=== PATIENT | female | born 2000 | race Caucasian/White ===

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

== ENCOUNTER 2020-04-26 16:23 | Outpatient (REF) | payer MEDICAID, SELFPAY ==
[2020-04-28 08:57] LABS: Chlamydia Result Negative (Negative); GC Result Negative (Negative)
== END 2020-04-26 16:43 ==
LOC: LBN 16:23
PROVIDERS: PCP Pediatrics; Visit Provider Nurse Practitioner Women's Health
DX: Z11.3 Encounter for screening for infections with a predominantly sexual mode of transmission (principal)
CPT/HCPCS: 87491; 87591

== ENCOUNTER 2021-11-28 14:38 | Outpatient (CLI) | payer MEDICAID, SELFPAY ==
--- NOTE | 2021-11-28 14:00 | DI.RAD_ITS ---
Exam(s) XR WRIST LT LIMITED EXAM: XR WRIST LT LIMITED CLINICAL HISTORY: confirmation of cyst. TECHNIQUE: 2D digital imaging was performed. COMPARISON: No exams were available for comparison FINDINGS: BONES: No acute fracture is present. No bony destructive lesion is seen. JOINTS: The carpal bones are normally aligned. SOFT TISSUE: Normal. IMPRESSION: Unremarkable radiographs of the left wrist. DATA REPOSITORY: RADIATION DOSE DELIVERED:
== END 2021-11-28 14:39 | disposition home or self-care (01) ==
LOC: DIORS 14:38
PROVIDERS: PCP Pediatrics; Referring Provider Pediatrics; Visit Provider Physician Assistant Surgical
DX: M67.432 Ganglion, left wrist (principal)
CPT/HCPCS: 73100

== ENCOUNTER 2021-12-19 03:01 | Outpatient (CLI) | payer MEDICAID, SELFPAY ==
[2021-12-19 10:09] LABS: Source Nasal/Nares
[2021-12-19 12:26] LABS: COVID-19 PCR Negative (Negative)
== END 2021-12-19 03:02 | disposition home or self-care (01) ==
PROVIDERS: PCP Pediatrics; Visit Provider Student in an Organized Health Care Education/Training Program
DX: Z20.822 Contact with and (suspected) exposure to COVID-19 (principal)
CPT/HCPCS: 87635

== ENCOUNTER 2021-12-20 09:25 | Day surgery (SDC) | payer MEDICAID, SELFPAY ==
--- NOTE | 2021-12-20 07:25 | W.PM.DSUDISC ---
Discharge Plan Disposition Patient Disposition: HOME Condition: Good Discharge Details Reason For Visit: Left wrist ganglion cyst Attending Provider: Lalit Ceron Primary Care Provider: Silvano Yang Home Meds and New Rx's Prescriptions: New acetaminophen 500 mg tablet 500 mg PO Q6H PRN (Reason: pain) Qty: 60 RF: 2 ibuprofen 600 mg tablet 600 mg PO TID PRN (Reason: pain) Qty: 60 RF: 0 hydrocodone-acetaminophen 5-325 mg tablet 1 tab PO Q6H PRN (Reason: severe pain) Qty: 4 RF: 0 Continued loratadine [Claritin] 10 mg tablet 10 mg PO DAILY PRN (Reason: allergy symptoms) Qty: 45 RF: 2 levonorgestrel-ethinyl estrad [Altavera (28)] 0.15-0.03 mg tablet 1 tab PO DAILY Qty: 84 RF: 4 buspirone 5 mg tablet 5 mg PO DAILY RF: 0 mometasone 50 mcg/actuation [place],Non-Aerosol 1 spray INTRANASAL DAILY RF: 0 Discharge Instructions Additional Instructions: Ganglion Cyst Excision Discharge Instructions Activity: You may use your fingers for light activity. You should limit any excessive motion or forceful gripping until the sutures have been removed. Dressings: You should keep the initial surgical dressing in place for at least 3 days. You may remove your dressings and get the wound wet after 3 days. You should keep the dressings and the wound clean at all times. You may keep the initial dressing in place until your follow-up but keep the wound covered with light gauze until the sutures are removed. Medications: - You should take Tylenol and Ibuprofen around the clock as prescribed or per check clerk's recommendations. - You have Hydrocodone prescribed for breakthrough pain control. Take only as needed and limit use as much as possible. This may cause constipation. Follow-up: 7-10 days for wound check and suture removal. Referrals: Lalit Ceron MD [ [facility] STAFF PHYSICIAN] - Activity:: Elevate Remove Dressings/Wound Care:: 72 hours Shower/Bathe:: 72 hours Discharge Orders Discharge Orders: Discharge Order (Routine); Ordered 12/20/21 Ordered By: Yana West DS: Diagnosis Discharge Diagnosis (1) Ganglion cyst of volar aspect of left wrist: Status: Acute
[2021-12-20 09:30] VITALS: BP 135/108; PULSE 105; RESP 24; TEMP 36; O2SAT 98
--- NOTE | 2021-12-20 10:10 | W.ANESPRE ---
General Info Date of Service Date Performed: 12/20/21 Height: 5 ft 5 in Weight: 53.2 kg Body Mass Index (BMI): 19.5 Surgical Procedure: Operation Date: 12/20/21 10:40 Proposed Procedures Side Surgeon p Wrist Cyst Excision Left Lalit Ceron MD Meds Allergies and Home Medications Allergies Allergy/AdvReac Type Severity Reaction Status Date / Time No Known Allergies Allergy Unverified 12/20/21 09:48 Home Medication Medication Instructions Recorded loratadine 10 mg tablet 10 mg PO DAILY PRN #45 tab 12/25/19 levonorgestrel 0.15 mg-ethinyl 1 tab PO DAILY #84 tab 04/26/20 estradiol 0.03 mg tablet buspirone 5 mg tablet 5 mg PO DAILY tab 05/31/21 mometasone 1 spray INTRANASAL DAILY 12/19/21 Current Visit Medications: Current Medications Generic Name Dose Route Start Last Admin Trade Name Freq PRN Reason Stop Dose Admin Acetaminophen 650 mg 12/20/21 07:24 Acetaminophen 325 Mg Tab PO Q4H PRN PRN Hydrocodone Bitart/Acetaminophen 0 tab 12/20/21 07:24 Hydrocodone 5/Acetaminophen 325 Tab PO Q3H PRN PRN Pain Ringer's Solution 1,000 mls @ 80 mls/hr 12/20/21 06:00 IV 01/18/22 23:59 INFUSION SUNSHINE Cefazolin Sodium/Dextrose 2 gm in 50 mls @ 100 mls/hr 12/20/21 06:00 Ancef Duplex IVPB 01/18/22 23:59 PREOP SUNSHINE IV Miscellaneous Supplies 1 each 12/20/21 06:00 Iv Access IV 01/18/22 23:59 DIRECTED SUNSHINE Sodium Chloride 0 ml 12/20/21 06:00 Normal Saline Flush 10 Ml Syr IV 01/18/22 23:59 PRN PRN Sodium Chloride 0 ml 12/20/21 06:00 Normal Saline 10 Ml Vial IJ 01/18/22 23:59 DIRECTED PRN Sterile Water 0 ml 12/20/21 06:00 Water,Injection,Sterile 10 Ml Vial IJ 01/18/22 23:59 DIRECTED PRN PFSH Active Problems Active Problems: Problem Status Onset Code Anxiety 03/15/17 F41.9 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 Oral contraception initial prescription Z30.011 Interstitial cystitis N30.10 Ganglion cyst of volar aspect of left wrist M67.432 Medical History Medical History Anxiety Depression Eczema Surgical History Surgical History (Updated 12/20/21 @ 09:48 by Vanessa Hsieh RN) Hx of wisdom tooth extraction Tobacco Smoking/Tobacco Use Status: Never Alcohol Alcohol Intake: current Alcohol intake frequency: holidays/special occasions only Alcohol type: beer and wine Substance Use Substance use: Daily Substance use type: marijuana Details: last used 12.18.21 Prental History History 0 Para Hx # Term Pregnancies Multiple births Hx # Pregnancies Ectopic pregnancies AB induced Hx Number of Living Children AB spontaneous Vital Signs and Lab Results Vital Signs Most Recent Vital Signs in EMR: Most Recent Vital Signs Temp Pulse Resp BP Pulse Ox 36.0 C L 127 H 24 135/108 H 98 12/20/21 09:30 12/20/21 09:30 12/20/21 09:30 12/20/21 09:30 12/20/21 09:30 Lab Results Blood Type / Crossmatch: No Data to Display Complete Blood Count: No Data to Display Complete Metabolic Panel: No Data to Display Liver Function Panel: No Data to Display Coagulation Panel: No Data to Display Cardiac Panel: No Data to Display Arterial Blood Gas: No Data to Display Venous Blood Gas: No Data to Display Pancreas Panel: No Data to Display Thyroid Panel: No Data to Display Infectious Disease: Coronavirus (COVID-19)(PCR) Negative (Negative) 12/19/21 09:14 12/19/21 Coronavirus 2019 Source Nasal/Nares 12/19/21 09:14 12/19/21 Blood Cultures: No Data to Display Toxicology Panel: No Data to Display Panel: No Data to Display Anesthesia Assessment and Plan Anesthesia History Personal History: No History of Anesthesia Complications Family History: No Family History of Anesthesia Complications Exercise Tolerance Exercise Tolerance: Metabolic Equivalents>4 Pertinent Negatives Pertinent Negatives: No Symptoms of GERD, No Major Cardiovascular Symptoms or Complaints and No Major Pulmonary Symptoms or Complaints Cardiac & Pulmonary Exam Cardiac Exam: Normal S1/S2 Heart Sounds Pulmonary Exam: Clear Bilateral Breath Sounds Implantable Cardiac Device Does patient have a Pacemaker or an ICD?: No Airway Exam Known Difficult Airway: No Mallampati Class: 1 Mouth Opening: Normal (> 3cm) Thyromental Distance: Greater than 3 cm Neck Range of Motion: Full ROM Neck Circumference: Normal Teeth Condition: Normal Dentition ASA Classification ASA Score: ASA 2 Emergency Case?: No NPO Status NPO Status: NPO Clears >2 hours, Solids >8 hours Status Status: Negative HCG Anesthesia Plan Resuscitation Status: Full Code Anesthesia Technique: General Anesthesia Airway Planned: Natural Airway Monitors Used: Standard Monitors
[2021-12-20 10:11] VITALS: BMI 19.5
[2021-12-20] MEDS: Lactated Ringers 1,000 ML 80 ML IV (10:12)
[2021-12-20] MEDS: ceFAZolin 2 GM/50 ML BAG IVPB (10:21)
[2021-12-20] MEDS: Sodium Bicarbonate 50 MEQ/50 ML VIAL (10:55)
[2021-12-20 11:08] VITALS: BP 107/66; PULSE 68; RESP 18; TEMP 36.2; O2SAT 100
[2021-12-20 11:35] VITALS: BP 113/61; PULSE 71; RESP 20; TEMP 36.4; O2SAT 100
--- NOTE | 2021-12-20 12:06 | W.ANESPOSTOP ---
Postoperative Evaluation Date, Time and Location Date Performed: 12/20/21 Time Performed: 12:07 Patient Location: Day Surgery Unit Vital Signs Most Recent Imported Vital Signs: Most Recent Vital Signs Temp Pulse Resp BP Pulse Ox 36.4 C L 71 20 113/61 100 12/20/21 11:35 12/20/21 11:35 12/20/21 11:35 12/20/21 11:35 12/20/21 11:35 Pain Score Most Recent Pain Score: Most Recent Pain Score Pain Level 0 12/20/21 11:35 Assessment Mental Status: Awake (Alert & Oriented to Patient Baseline) Airway and Respiratory Function: Patent airway with normal (patient baseline) respiratory exam Cardiovascular Function: Hemodynamically Stable Hydration Status: Adequately Hydrated Nausea & Vomiting: No Nausea or Vomiting Pain: Pt. Denies Any Pain Peripheral Nerve Block: Patient did not receive a nerve block
--- NOTE | 2021-12-20 18:24 | W.PM.OP ---
Date of service: 12/20/21 Time of Service: 10:24 Operative Note Operative Note DATE OF PROCEDURE: 12/20/21 PRE-OP DIAGNOSIS: Left Volar Wrist Ganglion Cyst POST-OP DIAGNOSIS: same PROCEDURE: Excision of volar wrist ganglion cyst - Left wrist SURGEON: Lalit Ceron ANESTHESIA TYPE: General:No Airway Refer to Anesthesia Record ESTIMATED BLOOD LOSS: 5 PATHOLOGY: none sent TOURNIQUET TIME: 0 COMPLICATIONS: None Patient was transported to: PACU Patient's condition: stable Indications: Lynda is a 21 year old female who I have seen for a volar wrist ganglion cyst. It has continued to be bothersome despite nonoperative options and observation. Its size and interference with activities continues to cause problems. Therefore, I offered excision of the volar wrist cyst. I discussed the risks to include bleeding, infection, pain, stiffness, damage to nerve and vessels, recurrence. Despite these risks, she elects to proceed. Findings: There was a simple volar wrist ganglion cyst between the FCR tendon and the radial artery which was removed as well as its stalk and origin from the volar radioscaphoid joint. Procedure Description: Lynda was greeted in the preoperative holding area. Identity was confirmed and the correct site was identified and marked. Consent was reviewed the patient and signed. History and physical was updated. The patient to take not to the operating room placed in supine position. All bony prominences were well-padded. A nonsterile tourniquet was placed high up onto the left arm. The arms and prepped with ChloraPrep and draped in a standard fashion. The surgical site was marked on the skin and injected with 1% lidocaine with epinephrine buffered with sodium bicarbonate. No tourniquet was used. The skin was incised sharply. Deeper dissection was carried out with tenotomy scissors and careful attention to vascular branches in this area using bipolar electrocautery for branches overlying the cyst. The mass was identified and protected with dissection carried around. Once was fully identified it was deflated and the cyst stalk was followed down to the carpus with a slim origin to the radioscaphoid joint. The cyst structure was resected and its origin from the carpus was opened with tenotomy scissors and rongeur. The wound was then thoroughly irrigated. There is no major arterial bleeding and any other ooze was cauterized with the bipolar electrocautery. The wound was dry. The deep layer was reapproximated with a 3-0 Vicryl. The skin was closed with a running 4-0 Monocryl followed by skin glue, gauze, and Wade wrap. The wrist was placed into a removable wrist brace. At the end the case all counts were correct. The patient was awakened from anesthesia and taken to the PACU in stable condition. There were no noted complications.
== END 2021-12-20 12:10 | disposition home or self-care (01) ==
LOC: SUR 09:25
PROVIDERS: PCP Pediatrics; Visit Provider Student in an Organized Health Care Education/Training Program
PROC: (CPT 25111; principal; 2021-12-20 10:30)
DX: M67.432 Ganglion, left wrist (principal)
CPT/HCPCS: 25111; 81025; J0690; J1100; J2001; J2250; J2405; J2704; J3010

== ENCOUNTER 2022-03-21 12:34 | Outpatient (REF) | payer MEDICAID, SELFPAY ==
--- NOTE | 2022-03-21 10:30 | PAPFT_PTH ---
PATIENT: Lynda Kraus LOC: [facility]#:[id number] AGE/SX: 21/F ROOM: RE03/21/[address]: Salud Braga : 2000 BED: DIS: 03/21/2022 SPEC #: [id number] RECD: 03/21/22 17:21 STATUS: NAY RETim #: [id number] DAMASO: 03/21/22 10:[address]: Salud Braga DEPT: [facility] Cytology RECD BY: Meghan Simental ENTERED: 03/21/22 17:22 SP TYPE: PAPFT OTHR DR: Silvano Carranza, Tissues: 1 - CX/ENDOCX FOR PAP SMEARS Procedures: PAP THIN PREP/UVM Screening Comments: [id number] (CHLAMYDIA/GC)
[2022-03-21 14:31] LABS: ALT 17 U/L (14-59); AST 13 U/L (15-37); Albumin 3.9 g/dL (3.4-5.0); Alkaline Phosphatase 57 U/L (46-116); Anion Gap 9.3 mmol/L (3-11); BUN 16 mg/dL (7-18); Bilirubin, Total 0.6 mg/dL (0.2-1.0); CO2 27.7 mmol/L (21.0-32.0); Calcium 8.6 mg/dL (8.5-10.1); Chloride 105 mmol/L (98-107); Glucose 66 mg/dL (74-106); Sodium 142 mmol/L (136-145); Total Protein 7.2 g/dL (6.4-8.2)
[2022-03-22 14:42] LABS: Chlamydia Result Negative (Negative); GC Result Negative (Negative)
== END 2022-03-21 12:35 | disposition home or self-care (01) ==
LOC: NCHCN 12:34
PROVIDERS: PCP Pediatrics; Visit Provider Nurse Practitioner Family
DX: R63.4 Abnormal weight loss (principal); Z12.4 Encounter for screening for malignant neoplasm of cervix; Z01.419 Encounter for gynecological examination (general) (routine) without abnormal findings; Z00.00 Encounter for general adult medical examination without abnormal findings; Z11.3 Encounter for screening for infections with a predominantly sexual mode of transmission
CPT/HCPCS: 80053; 87491; 87591; 88142

== ENCOUNTER 2022-06-04 16:24 | Emergency (ER) | payer MEDICAID, SELFPAY ==
[2022-06-04 16:29] VITALS: BP 156/95; PULSE 105; RESP 14; TEMP 37.2; O2SAT 100
--- NOTE | 2022-06-04 16:30 | RT.EKG_ITS ---
APPROVED REPORT Exam: Resting ECG Reason for Exam: elevated heart rate Patient Location: E HR:105 bpm ECG Measurements Heart Rate [address] 125 P 78 QRSd 92 QRS 79 QT 339 T -6 QTc 447 Conclusion Sinus tachycardia...rate> 99 Multiple ventricular premature complexes...V complexes w/ short R-R intervls sinus tachycardia, normal axis, normal intervals,PVCs, T wave flattening III aVF
[2022-06-04] MEDS: LORazepam 1 MG TAB PO (17:24)
[2022-06-04 17:41] LABS: Bilirubin Negative (Negative); Blood Negative (Negative); Clarity Clear (Clear); Glucose Negative (Negative); Ketones Negative (Negative); Leukocyte Esterase Negative (Negative); Nitrite Negative (Negative); Specific Gravity 1.015 (1.005-1.025); Urobilinogen 0.2 EU/dL (Up TO 0.2)
[2022-06-04 17:52] LABS: Abs Immature Grans 0.02 10^3/uL (0.0-0.06); Absolute Basophil Count 0.05 10^3/uL (0.0-0.2); Absolute Eosinophil Count 0.06 10^3/uL (0.0-0.7); Absolute Lymphocyte Count 1.87 10^3/uL (1.2-3.4); Absolute Monocyte Count 0.82 10^3/uL (0.1-0.8); Absolute Neutrophil Count 7.12 10^3/uL (1.2-6.7); Basophils % 0.5; Eosinophils % 0.6; HCT 40.7 % (36.0-46.0); HGB 14.2 g/dL (11.2-15.7); Immature Grans % 0.2; Lymphocytes % 18.8; MCH 31.6 pg (27.0-33.0); MCHC 34.9 % (32.0-36.0); MCV 90 fL (80-95); MPV 9.8 fL (8.0-11.0); Monocytes % 8.2; Neutrophils % 71.7; Platelet Count 286 10^3/uL (130-400); RDW 13.2 % (11.7-14.6); RDW-SD 43.9 fL; WBC 9.94 10^3/uL (4.4-10.8)
[2022-06-04 18:13] VITALS: RESP 14
[2022-06-04 18:13] LABS: ALT 17 U/L (14-59); AST 11 U/L (15-37); Albumin 3.6 g/dL (3.4-5.0); Alkaline Phosphatase 51 U/L (46-116); Anion Gap 5.8 mmol/L (3-11); BUN 15 mg/dL (7-18); Bilirubin, Total 0.3 mg/dL (0.2-1.0); CO2 28.2 mmol/L (21.0-32.0); Chloride 105 mmol/L (98-107); Glucose 116 mg/dL (74-106); Potassium 3.8 mmol/L (3.5-5.1); Sodium 139 mmol/L (136-145); TSH (W/Ref FT4) 1.22 uIU/mL (0.36-3.74); Total Protein 7.1 g/dL (6.4-8.2)
--- NOTE | 2022-06-04 18:19 | W.ED.GENAD ---
Discharge Plan Disposition Patient Disposition: HOME Condition: Stable Discharge Details Clinical Impression: Anxiety, Palpitations Primary Care Provider: Salud Braga ED Provider: Meghan Almonte Home Meds and New Rx's Prescriptions: New hydroxyzine HCl 50 mg tablet 50 mg PO QHS Qty: 14 0RF lorazepam [Ativan] 1 mg tablet 1 mg PO DAILY PRNQty: 7 0RF Continued loratadine [Claritin] 10 mg tablet 10 mg PO DAILY PRN (Reason: allergy symptoms) Qty: 45 2RF levonorgestrel-ethinyl estrad [Altavera (28)] 0.15-0.03 mg tablet 1 tab PO DAILY Qty: 84 4RF buspirone 5 mg tablet 5 mg PO DAILY mometasone 50 mcg/actuation [place],Non-Aerosol 1 spray INTRANASAL DAILY acetaminophen 500 mg tablet 500 mg PO Q6H PRN (Reason: pain) Qty: 60 2RF ibuprofen 600 mg tablet 600 mg PO TID PRN (Reason: pain) Qty: 60 0RF Discharge Instructions Instructions: Heart Palpitations (ED), Anxiety (ED) Additional Instructions: Take hydroxyzine at night, you may take 25 to 50 mg as needed to help you sleep [facility] Follow-up with your primary care physician You may take Ativan as needed, this medication to use for anxiety but it is addictive and you should not drive for 8 hours after taking this medication You should also not combine this medication with any alcohol Please return earlier should you have new or worsening complaints Referrals: [facility] [Provider Group] - 2 days Salud Braga [Primary Care Provider] - 1 day Medical Decision Making Diagnostic labs do not show evidence of acute abnormality Vital stable EKG does not show evidence of abnormality Fully alert and oriented Denies suicidal or homicidal ideation Given referral to [facility] [place], spoke with Becca and given resources Given Ativan which patient states markedly improved her anxiety Given prescription for small amount of Ativan with risk of addiction discussed Given prescription for hydroxyzine as needed for sleep Return precautions discussed and patient expressed understanding Medical Records Medical records reviewed: Yes I reviewed the patient's medical records. Lab Data Lab results reviewed: Yes I reviewed the patient's lab results. HPI General Date/Time Provider Initiated Documentation: 06/04/22 16:56. HPI Narrative: This 21-year-old female presents with reports of palpitations and anxiety with insomnia. She states that insomnia for several years now on for the past 3 days. She feels as though she is getting palpitations and feels like her heart is racing. She denies any chest pain or shortness of breath. She is on BuSpar for anxiety but does not feel it is working any longer. She is been trying to find a counselor but has been having difficulty. She denies any suicidal or homicidal ideation. She denies any illicit drug use. She does occasionally drink alcohol but denies regular use. She denies any additional illicit drug use. Related Data Home Medications Medication Instructions Recorded Confirmed loratadine 10 mg tablet (Claritin) 10 mg PO DAILY PRN allergy 12/25/19 06/04/22 symptoms #45 tabs levonorgestrel 0.15 mg-ethinyl 1 tab PO DAILY #84 tabs 04/26/20 06/04/22 estradiol 0.03 mg tablet (Altavera (28)) buspirone 5 mg tablet 5 mg PO DAILY 05/31/21 06/04/22 mometasone 50 mcg/actuation nasal 1 spray intranasal DAILY 12/19/21 06/04/22 spray acetaminophen 500 mg tablet 500 mg PO Q6H PRN pain #60 tabs 12/20/21 06/04/22 ibuprofen 600 mg tablet 600 mg PO TID PRN pain #60 tabs 12/20/21 06/04/22 hydroxyzine HCl 50 mg tablet 50 mg PO QHS #14 tabs 06/04/22 lorazepam 1 mg tablet (Ativan) 1 mg PO DAILY PRN #7 tabs 06/04/22 Previous Rx's Medication Instructions Recorded loratadine 10 mg tablet (Claritin) 10 mg PO DAILY PRN allergy 12/25/19 symptoms #45 tabs levonorgestrel 0.15 mg-ethinyl 1 tab PO DAILY #84 tabs 04/26/20 estradiol 0.03 mg tablet (Altavera (28)) acetaminophen 500 mg tablet 500 mg PO Q6H PRN pain #60 tabs 12/20/21 ibuprofen 600 mg tablet 600 mg PO TID PRN pain #60 tabs 12/20/21 hydroxyzine HCl 50 mg tablet 50 mg PO QHS #14 tabs 06/04/22 lorazepam 1 mg tablet (Ativan) 1 mg PO DAILY PRN #7 tabs 06/04/22 Allergies Allergy/AdvReac Type Severity Reaction Status Date / Time No Known Allergies Allergy Unverified 06/04/22 16:36 General Stated Complaint: Anxiety SHRADDHA: 3 Review of Systems All systems reviewed & are unremarkable except as noted in HPI and below PFSH All Active Problems (Updated 12/31/21 @ 09:36 by Lalit Ceron MD) Palpitations (Acute) Anxiety (Acute 03/15/17) Patellar instability of right knee (Chronic) Oral contraception initial prescription (Acute) Interstitial cystitis (Acute) Ganglion cyst of volar aspect of left wrist (Acute) s/p cyst excision 12/20/21 Medical History Anxiety Depression Eczema Surgical History Hx of wisdom tooth extraction Family History Mother Hyperlipidemia Mental disorder depression/anxiety OCD on disability PMS (premenstrual syndrome) ADHD (attention deficit hyperactivity disorder) Asthma Father Substance abuse Other Substance abuse Essential hypertension Heart disease Hyperlipidemia Mental disorder depression/anxiety Grandparent Substance abuse Essential hypertension Hyperlipidemia Mental disorder depression/anxiety Social History Smoking/Tobacco Use Status: Never Smoking risk assessment performed?: Yes Alcohol Intake: current Alcohol Intake frequency: holidays/special occasions only Alcohol type: beer and wine Drug use: Daily Substance use type: marijuana Details: uses it to help her sleep has not used for a few days Sexually active: Yes Do you think of yourself as: straight/heterosexual Current gender identity: female Do you feel safe at home: Yes Do you feel safe in your relationship?: Yes Female Reproductive History Menstrual Age of Menarche: 11 Duration of menses: 6-7 days control method: none and condoms History History 0 Para Hx # Term Pregnancies Multiple births Hx # Pregnancies Ectopic pregnancies AB induced Hx Number of Living Children AB spontaneous Exam Const General: cooperative, comfortable and no acute distress Eyes Pupils: PERRL Resp Effort & Inspection: normal respiratory effort Cardio Rate: regular rate Rhythm: regular rhythm Heart Sounds: no murmurs GI Inspection: normal to inspection Skin General skin exam: no rashes or lesions noted Neuro General: patient alert and patient oriented x3 Extrem General: normal to inspection Course Vital Signs Vital signs: Vital Signs Temperature 37.2 C 06/04/22 16:29 Pulse 105 H 06/04/22 16:29 Respiratory Rate 14 06/04/22 16:29 Blood Pressure 156/95 H 06/04/22 16:29 Pulse Oximetry 100 06/04/22 16:29 Temperature 37.2 C 06/04/22 16:29 Temperature Source Skin 06/04/22 16:29 Pulse 105 H 06/04/22 16:29 Respiratory Rate 14 06/04/22 18:13 Respiratory Effort 06/04/22 18:13 Respiratory Depth Normal 06/04/22 18:13 Respiratory Pattern Normal 06/04/22 18:13 Blood Pressure 156/95 H 06/04/22 16:29 Blood Pressure Position Sitting 06/04/22 16:29 Pulse Oximetry 100 06/04/22 16:29 Oxygen Delivery Method Room Air 06/04/22 16:29 Oxygen Flow Rate 0 06/04/22 16:29 Pain Level 0 06/04/22 16:29 Lab/Test Results Lab/Test Results: Laboratory Tests Range/Units 06/04/22 06/04/22 06/04/22 17:15 17:45 17:45 WBC (4.4-10.8) 10^3/uL 9.94 RBC (3.93-5.22) 10^6/uL 4.50 Hgb (11.2-15.7) g/dL 14.2 Hct (36.0-46.0) % 40.7 MCV (80-95) fL 90 MCH (27.0-33.0) pg 31.6 MCHC (32.0-36.0) % 34.9 RDW (11.7-14.6) % 13.2 Plt Count (130-400) 10^3/uL 286 MPV (8.0-11.0) fL 9.8 Immature Gran % 0.2 Neutrophils % 71.7 Lymphocytes % 18.8 Monocytes % 8.2 Eosinophils % 0.6 Basophils % 0.5 Nucleated RBC % (0.0-0.3) % 0.0 Absolute Neutrophils (1.2-6.7) 10^3/uL 7.12 H Absolute Lymphocytes (1.2-3.4) 10^3/uL 1.87 Absolute Monocytes (0.1-0.8) 10^3/uL 0.82 H Absolute Eosinophils (0.0-0.7) 10^3/uL 0.06 Absolute Basophils (0.0-0.2) 10^3/uL 0.05 Sodium (136-145) mmol/L 139 Potassium (3.5-5.1) mmol/L 3.8 Chloride (98-107) mmol/L 105 Carbon Dioxide (21.0-32.0) mmol/L 28.2 Anion Gap (3-11) mmol/L 5.8 BUN (7-18) mg/dL 15 Creatinine (0.55-1.02) mg/dL 1.0 Estimated GFR/1.73 m2 (mL/min/1.73m2) >= 60.00 Glucose (74-106) mg/dL 116 H Calcium (8.5-10.1) mg/dL 9.0 Total Bilirubin (0.2-1.0) mg/dL 0.3 AST (15-37) U/L 11 L ALT (14-59) U/L 17 Alkaline Phosphatase (46-116) U/L 51 Total Protein (6.4-8.2) g/dL 7.1 Albumin (3.4-5.0) g/dL 3.6 TSH (0.36-3.74) uIU/mL 1.22 Urine Color (Yellow) Yellow Urine Clarity (Clear) Clear Urine pH (5-8) 7.0 Ur Specific [place] (1.005-1.025) 1.015 Urine Protein (Negative) mg/dL Negative Urine Ketones (Negative) mg/dL Negative Urine Blood (Negative) Negative Urine Nitrite (Negative) Negative Urine Bilirubin (Negative) Negative Urine Urobilinogen (Up TO 0.2) EU/dL 0.2 Ur Leukocyte Esterase (Negative) Negative Urine Glucose (Negative) mg/dL Negative POC- Test(urine) Negative
[2022-06-04] MEDS: hydrOXYzine HCL 25 MG TAB 50 MG PO (18:42)
== END 2022-06-04 22:32 | disposition home or self-care (01) ==
PROVIDERS: Emergency Provider Physician Assistant; PCP Nurse Practitioner Family
DX: F41.9 Anxiety disorder, unspecified (principal); R00.2 Palpitations; Z32.02 Encounter for pregnancy test, result negative
CPT/HCPCS: 36410; 36415; 80053; 81025; 93005; 99283; 81003; 84443; 85025; 93010; 99284

== ENCOUNTER 2022-12-14 19:49 | Outpatient (REF) | payer MEDICAID, SELFPAY ==
[2022-12-16 11:37] LABS: COVID-19 RT-PCR UVMMC Result Negative (Negative)
== END 2022-12-14 19:50 | disposition home or self-care (01) ==
LOC: LBN 19:49
PROVIDERS: PCP Nurse Practitioner Family; Visit Provider Physician Assistant Medical
DX: Z20.822 Contact with and (suspected) exposure to COVID-19 (principal); R05.9 Cough, unspecified
CPT/HCPCS: U0003

== ENCOUNTER 2023-01-04 19:31 | Outpatient (CLI) | payer MEDICAID, SELFPAY ==
--- NOTE | 2023-01-04 | DI.RAD_ITS ---
Exam(s) XR CHEST 2V PA LATERAL EXAM: XR CHEST 2V PA LATERAL CLINICAL HISTORY: cough TECHNIQUE: 2D digital imaging was performed. COMPARISON: No exams were available for comparison FINDINGS: HEART: Normal size. Aorta: Not dilated. PULMONARY VASCULATURE: Normal. LUNGS: Hyperinflated but clear. PLEURAL SPACE: No pleural effusion or pneumothorax. BONE:Unremarkable for age. IMPRESSION: Hyperinflated lungs. No acute abnormality. DATA REPOSITORY: RADIATION DOSE DELIVERED:
--- NOTE | 2023-01-04 20:21 | DI.VRAD_ITS ---
PROCEDURE INFORMATION: Exam: XR Chest Exam date and time: 01/04/2023 8:02 PM Age: 22 years old Clinical indication: Cough TECHNIQUE: Imaging protocol: Radiologic exam of the chest. Views: 2 views. COMPARISON: CT ABD PELVIS WITH CONTRAST 04/10/2017 1:42 AM FINDINGS: Lungs: The lungs are hyperaerated, possible reactive airway disease. No focal infiltrates. Pleural spaces: Unremarkable. No pleural effusion. No pneumothorax. Heart/Mediastinum: Unremarkable. No cardiomegaly. Bones/joints: Unremarkable. IMPRESSION: Hyperaeration possibly related to reactive airway disease. No evidence for consolidation. Dictated and Authenticated by: Bettie Reyes MD. Ordering:MEDARDO Carr MD
== END 2023-01-04 19:51 ==
PROVIDERS: PCP Nurse Practitioner Family; Visit Provider Physician Assistant Medical
DX: R91.8 Other nonspecific abnormal finding of lung field (principal)
CPT/HCPCS: 71046

== ENCOUNTER 2023-07-02 19:28 | Emergency (ER) | payer MEDICAID, SELFPAY ==
[2023-07-02 19:34] VITALS: BP 134/100; PULSE 99; RESP 22; TEMP 37.1; O2SAT 97
--- NOTE | 2023-07-02 19:45 | DI.RAD_ITS ---
Exam(s) XR CHEST 2V PA LATERAL EXAM: XR CHEST 2V PA LATERAL CLINICAL HISTORY: cough. TECHNIQUE: 2D digital imaging was performed. COMPARISON: Prior chest x-ray 01/04/2023 FINDINGS: 2 views: Heart size is normal. The mediastinum is not widened. Bilateral hyperinflation again noted. No confluent infiltrates but there is subsegmental atelectasis in the lateral right lung base. No pleural effusions. IMPRESSION: Hyperinflation. Subsegmental platelike atelectasis in the lateral right lung base. DATA REPOSITORY: RADIATION DOSE DELIVERED:
[2023-07-02 19:59] VITALS: RESP 16; RESP 4
[2023-07-02] MEDS: Albuterol 2.5 MG/3 ML INH SOLN VIAL UPD (19:59)
--- NOTE | 2023-07-02 20:48 | DI.VRAD_ITS ---
PROCEDURE INFORMATION: Exam: XR Chest Exam date and time: 07/02/2023 8:19 PM Age: 22 years old Clinical indication: Cough TECHNIQUE: Imaging protocol: Radiologic exam of the chest. Views: 2 views. COMPARISON: CR XR CHEST 2V PA LATERAL 01/04/2023 8:02 PM FINDINGS: Lungs: Hyperaeration of the lungs. No focal consolidation. Pleural spaces: Unremarkable. No pleural effusion. No pneumothorax. Heart/Mediastinum: Unremarkable. No cardiomegaly. Bones/joints: Unremarkable. IMPRESSION: Hyperaeration of the lungs. No focal consolidation. Dictated and Authenticated by: Dai Rojas MD. Ordering:SERGEY Partida MD
--- NOTE | 2023-07-02 21:16 | ED.GENADUL_ITS ---
Discharge Plan Disposition Patient Disposition: Home Discharge Details Clinical Impression: Pneumonia Primary Care Provider: Salud Braga ED Provider: Jaquan Aguilar Home Meds and New Rx's Prescriptions: New doxycycline hyclate 100 mg capsule 100 mg PO BID Qty: 10 0RF benzonatate 200 mg capsule 200 mg PO TID PRN (Reason: cough) Qty: 30 0RF Continued loratadine [Claritin] 10 mg tablet 10 mg PO DAILY PRN (Reason: allergy symptoms) Qty: 45 2RF levonorgestrel-ethinyl estrad [Altavera (28)] 0.15-0.03 mg tablet 1 tab PO DAILY Qty: 84 4RF buspirone 5 mg tablet 5 mg PO DAILY hydroxyzine HCl 50 mg tablet 50 mg PO QHS Qty: 14 0RF lorazepam [Ativan] 1 mg tablet 1 mg PO DAILY PRNQty: 7 0RF mometasone 50 mcg/actuation [place],Non-Aerosol 1 spray INTRANASAL DAILY acetaminophen 500 mg tablet 500 mg PO Q6H PRN (Reason: pain) Qty: 60 2RF ibuprofen 600 mg tablet 600 mg PO TID PRN (Reason: pain) Qty: 60 0RF Discharge Instructions Instructions: Pneumonia (ED) Additional Instructions: Stay well-hydrated and get plenty of rest. If you have any new or significant worsening of your symptoms feel free to return to the emergency department for reassessment otherwise follow-up with your primary care provider if not improving on the antibiotic. You may continue to use your home inhalers and it is recommended that you use this with a spacer. Referrals: Salud Braga [Primary Care Provider] - (As needed for reassessment or if not improving) Discharge Data Discharge Date/Time-TO BE ENTERED AT DEPARTURE: 07/02/23 21:22 Medical Decision Making Patient presenting to the emergency department for chief complaint of worsening cough. 7 days ago patient had started feeling ill and was diagnosed with COVID. She has been using conservative management but states worsening cough over the last couple days. Patient has a history of asthma, anxiety. She has been using her inhalers at home but still feeling some chest tightness. HEENT exam is unremarkable, patient does have some noted wheezing but very focal harsh wheezing in the right middle lobe. We will plan on checking chest x-ray because I am concerned for some pneumonia. Patient is otherwise stable with no hypoxia, no severe tachycardia, otherwise stable vital signs. Patient is outside the treatment window for antivirals and is otherwise healthy. Of note though patient is unvaccinated. Reviewed chest x-ray which shows no acute findings but given that patient has had viral illness for 7 days and now having worsening cough I am going to treat for pneumonia with doxycycline to cover possible bacterial source. Otherwise I feel patient can continue conservative management and return for new or worsening symptoms. After discussion of diagnosis and plan of care patient has no further needs, questions, or concerns and states clear understanding to return to the emergency department for any worsening symptoms. This documentation was generated using [employer] system, please disregard any oddities of phrase or misspellings. Imaging Data Radiologic Study: Imaging: X-Ray Radiologist's impression: Exam(s) PROCEDURE INFORMATION: Exam: XR Chest Exam date and time: 07/02/2023 8:19 PM Age: 22 years old Clinical indication: Cough TECHNIQUE: Imaging protocol: Radiologic exam of the chest. Views: 2 views. COMPARISON: CR XR CHEST 2V PA LATERAL 01/04/2023 8:02 PM FINDINGS: Lungs: Hyperaeration of the lungs. No focal consolidation. Pleural spaces: Unremarkable. No pleural effusion. No pneumothorax. Heart/Mediastinum: Unremarkable. No cardiomegaly. Bones/joints: Unremarkable. IMPRESSION: Hyperaeration of the lungs. No focal consolidation. HPI General Mode of arrival: ambulatory . Date/Time Provider Initiated Documentation: 07/02/23 19:42 . Limitations to Documentation: no limitations . Information obtained by: patient and RN notes reviewed . History of Present Illness 22 year old F presents to the emergency department with the chief complaint of Worsening chest congestion and cough, described as moderate, Patient started experiencing this day(s) (7) and it has been constant. No relieving factors improve symptom(s), No exacerbating factors reported . Related Data Home Medications Medication Instructions Recorded Confirmed loratadine 10 mg tablet (Claritin) 10 mg PO DAILY PRN allergy 12/25/19 07/02/23 symptoms #45 tabs levonorgestrel 0.15 mg-ethinyl 1 tab PO DAILY #84 tabs 04/26/20 07/02/23 estradiol 0.03 mg tablet (Altavera (28)) buspirone 5 mg tablet 5 mg PO DAILY 05/31/21 07/02/23 mometasone 50 mcg/actuation nasal 1 spray intranasal DAILY 12/19/21 07/02/23 spray acetaminophen 500 mg tablet 500 mg PO Q6H PRN pain #60 tabs 12/20/21 07/02/23 ibuprofen 600 mg tablet 600 mg PO TID PRN pain #60 tabs 12/20/21 07/02/23 hydroxyzine HCl 50 mg tablet 50 mg PO QHS #14 tabs 06/04/22 07/02/23 lorazepam 1 mg tablet (Ativan) 1 mg PO DAILY PRN #7 tabs 06/04/22 07/02/23 benzonatate 200 mg capsule 200 mg PO TID PRN cough #30 caps 07/02/23 doxycycline hyclate 100 mg capsule 100 mg PO BID #10 caps 07/02/23 Previous Rx's Medication Instructions Recorded loratadine 10 mg tablet (Claritin) 10 mg PO DAILY PRN allergy 12/25/19 symptoms #45 tabs levonorgestrel 0.15 mg-ethinyl 1 tab PO DAILY #84 tabs 04/26/20 estradiol 0.03 mg tablet (Altavera (28)) acetaminophen 500 mg tablet 500 mg PO Q6H PRN pain #60 tabs 12/20/21 ibuprofen 600 mg tablet 600 mg PO TID PRN pain #60 tabs 12/20/21 hydroxyzine HCl 50 mg tablet 50 mg PO QHS #14 tabs 06/04/22 lorazepam 1 mg tablet (Ativan) 1 mg PO DAILY PRN #7 tabs 06/04/22 benzonatate 200 mg capsule 200 mg PO TID PRN cough #30 caps 07/02/23 doxycycline hyclate 100 mg capsule 100 mg PO BID #10 caps 07/02/23 Allergies Allergy/AdvReac Type Severity Reaction Status Date / Time No Known Allergies Allergy Unverified 07/02/23 19:38 General Stated Complaint: GenMedical SHRADDHA: 4 Review of Systems Constitutional Constitutional: Reports chills, Reports fatigue, Denies fever(s), Reports headache(s), Reports lethargy and Reports malaise Eyes Eyes: Denies eye discharge ENT Ears, Nose, Mouth, and Throat: Reports headache(s), Denies neck pain and Denies throat swelling Cardiovascular Cardiovascular: Denies chest pain and Denies dyspnea Respiratory Respiratory: Reports as per HPI, Reports chest congestion, Reports cough, Reports excessive phlegm production and Denies dyspnea Musculoskeletal Musculoskeletal: Denies joint swelling and Denies neck pain Integumentary/Breasts Skin/Breast: Denies rash Neurologic Neurologic: Reports headache(s) Endocrine Endocrine: Reports fatigue Allergic/Immunologic Allergic/Immunologic: Denies throat swelling PFSH All Active Problems (Updated 12/31/21 @ 09:36 by Lalit Ceron MD) Pneumonia (Acute) Anxiety (Acute 03/15/17) Patellar instability of right knee (Chronic) Oral contraception initial prescription (Acute) Interstitial cystitis (Acute) Ganglion cyst of volar aspect of left wrist (Acute) s/p cyst excision 12/20/21 Medical History Anxiety Depression Eczema Surgical History Hx of wisdom tooth extraction Family History Mother Hyperlipidemia Mental disorder depression/anxiety OCD on disability PMS (premenstrual syndrome) ADHD (attention deficit hyperactivity disorder) Asthma Father Substance abuse Other Substance abuse Essential hypertension Heart disease Hyperlipidemia Mental disorder depression/anxiety Grandparent Substance abuse Essential hypertension Hyperlipidemia Mental disorder depression/anxiety Social History Smoking/Tobacco Use Status: Never Smoking risk assessment performed?: Yes Alcohol Intake: current Alcohol Intake frequency: holidays/special occasions only Alcohol type: beer and wine Drug use: Daily Substance use type: marijuana Details: uses it to help her sleep has not used for a few days Sexually active: Yes Do you think of yourself as: straight/heterosexual Current gender identity: female Do you feel safe at home: Yes Do you feel safe in your relationship?: Yes Female Reproductive History Menstrual Age of Menarche: 11 Duration of menses: 6-7 days control method: none and condoms History History 0 Para Hx # Term Pregnancies Multiple births Hx # Pregnancies Ectopic pregnancies AB induced Hx Number of Living Children AB spontaneous Exam Const General: cooperative, comfortable and no acute distress Orientation: alert and awake HENMT Head: normal to inspection, normocephalic and atraumatic Ears: hearing grossly normal bilaterally and TM's normal bilaterally General nose exam: external nose normal Face and sinus: no erythema Mouth: oral mucosae normal, no drooling, no muffled voice and no trismus Throat: posterior oropharynx normal Neck Neck: normal visual inspection, full ROM, no lymphadenopathy, no meningeal signs, trachea midline and supple Resp Effort & Inspection: normal respiratory effort, able to speak in complete sentences and cough Quality of cough: dry Auscultation: wheezes expiratory wheezes and scattered wheezes (Worsening right middle) Cardio Rate: regular rate Rhythm: regular rhythm Heart Sounds: S1 normal, S2 normal, normal S1 and S2, no click, no gallops, no murmurs and no rubs Skin General skin exam: no rashes or lesions noted and dry skin (warm) Neuro General: patient alert, patient awake, patient oriented x3, gait normal and moves all extremities Cognition: normal cognition Speech: speech normal Course Vital Signs Vital signs: Vital Signs Temperature 37.1 C 07/02/23 19:34 Pulse 99 H 07/02/23 19:34 Respiratory Rate 22 07/02/23 19:34 Blood Pressure 134/100 H 07/02/23 19:34 Pulse Oximetry 97 07/02/23 19:34 Temperature 37.1 C 07/02/23 19:34 Temperature Source Oral 07/02/23 19:34 Pulse 99 H 07/02/23 19:34 Respiratory Rate 16 07/02/23 19:59 Respiratory Effort Normal 07/02/23 19:55 Blood Pressure 134/100 H 07/02/23 19:34 Blood Pressure Position Sitting 07/02/23 19:34 Pulse Oximetry 97 07/02/23 19:34 Oxygen Delivery Method Room Air 07/02/23 19:59 Oxygen Flow Rate 0 07/02/23 19:59 Lab/Test Results Lab/Test Results: POC- Test(urine) Negative
[2023-07-02] MEDS: Benzonatate 100 MG CAP PO (21:18)
[2023-07-02] MEDS: Doxycycline Hyclate 100 MG CAP PO (21:18)
== END 2023-07-02 21:22 | disposition home or self-care (01) ==
PROVIDERS: Emergency Provider Nurse Practitioner Family; PCP Nurse Practitioner Family
DX: J18.9 Pneumonia, unspecified organism (principal); U09.9 Post COVID-19 condition, unspecified
CPT/HCPCS: 81025; 94640; 99284; 71046; J7613

== ENCOUNTER 2024-06-22 04:10 | Emergency (ER) | payer MEDICAID, SELFPAY ==
[2024-06-22 04:14] VITALS: BP 163/90; PULSE 99; RESP 18; O2SAT 95
[2024-06-22 04:17] VITALS: RESP 20
--- NOTE | 2024-06-22 04:26 | ED.GENADUL_ITS ---
Discharge Plan Disposition Patient Disposition[facility] Condition: Stable Discharge Details Clinical Impression: Alcohol intoxication Primary Care Provider: Salud Braga ED Provider: Franco Briceño and Leoncio Rx's Prescriptions: No Action loratadine [Claritin] 10 mg tablet 10 mg PO DAILY PRN (Reason: allergy symptoms) Qty: 45 2RF levonorgestrel-ethinyl estrad [Altavera (28)] 0.15-0.03 mg tablet 1 tab PO DAILY Qty: 84 4RF buspirone 5 mg tablet 5 mg PO DAILY hydroxyzine HCl 50 mg tablet 50 mg PO QHS Qty: 14 0RF lorazepam [Ativan] 1 mg tablet 1 mg PO DAILY PRNQty: 7 0RF mometasone 50 mcg/actuation [place],Non-Aerosol 1 spray INTRANASAL DAILY acetaminophen 500 mg tablet 500 mg PO Q6H PRN (Reason: pain) Qty: 60 2RF ibuprofen 600 mg tablet 600 mg PO TID PRN (Reason: pain) Qty: 60 0RF Discharge Instructions Instructions: Alcohol Intoxication ED Additional Instructions: You are released into [facility] protective custody until sober. Follow-up with PCP as needed. HPI General Mode of arrival: ambulatory . Date/Time Provider Initiated Documentation: 06/22/24 04:26 . Limitations to Documentation: no limitations . Information obtained by: patient . HPI Narrative: Patient brought in by [facility] for medical clearance to be housed in the corrections facility until she is sober. Patient has no complaint of. She has no significant past medical history. Related Data Home Medications ?Medication ?Instructions ?Recorded ?Confirmed loratadine 10 mg tablet (Claritin) 10 mg PO DAILY PRN allergy 12/25/19 06/22/24 symptoms #45 tabs levonorgestrel 0.15 mg-ethinyl 1 tab PO DAILY #84 tabs 04/26/20 06/22/24 estradiol 0.03 mg tablet (Altavera (28)) buspirone 5 mg tablet 5 mg PO DAILY 05/31/21 06/22/24 mometasone 50 mcg/actuation nasal 1 spray intranasal DAILY 12/19/21 06/22/24 spray acetaminophen 500 mg tablet 500 mg PO Q6H PRN pain #60 tabs 12/20/21 06/22/24 ibuprofen 600 mg tablet 600 mg PO TID PRN pain #60 tabs 12/20/21 06/22/24 hydroxyzine HCl 50 mg tablet 50 mg PO QHS #14 tabs 06/04/22 06/22/24 lorazepam 1 mg tablet (Ativan) 1 mg PO DAILY PRN #7 tabs 06/04/22 06/22/24 Previous Rx's ?Medication ?Instructions ?Recorded loratadine 10 mg tablet (Claritin) 10 mg PO DAILY PRN allergy 12/25/19 symptoms #45 tabs levonorgestrel 0.15 mg-ethinyl 1 tab PO DAILY #84 tabs 04/26/20 estradiol 0.03 mg tablet (Altavera (28)) acetaminophen 500 mg tablet 500 mg PO Q6H PRN pain #60 tabs 12/20/21 ibuprofen 600 mg tablet 600 mg PO TID PRN pain #60 tabs 12/20/21 hydroxyzine HCl 50 mg tablet 50 mg PO QHS #14 tabs 06/04/22 lorazepam 1 mg tablet (Ativan) 1 mg PO DAILY PRN #7 tabs 06/04/22 Allergies Allergy/AdvReac Type Severity Reaction Status Date / Time No Known Allergies Allergy Unverified 06/22/24 04:17 General Stated Complaint: GenMedical SHRADDHA: 4 Review of Systems Narrative: Per HPI Exam Narrative Exam Narrative: Const: Thin female in NAD. VS per triage. HEENT: NC/AT. Normal facial exam. Neck: Supple. Trachea midline. Lungs: Normal respiratory effort. Neuro: A+O x 3. Mild slurred speech, steady gait. Cranial nerves II - XII grossly intact. No gross motor or sensory deficit. Ext: No C/C/E. Course Vital Signs Vital signs: Vital Signs Pulse 99 H 06/22/24 04:14 Respiratory Rate 18 06/22/24 04:14 Blood Pressure 163/90 H 06/22/24 04:14 Pulse Oximetry 95 06/22/24 04:14 Pulse 99 H 06/22/24 04:14 Respiratory Rate 20 06/22/24 04:17 Respiratory Effort Normal 06/22/24 04:17 Respiratory Depth Normal 06/22/24 04:17 Respiratory Pattern Normal 06/22/24 04:17 Blood Pressure 163/90 H 06/22/24 04:14 Blood Pressure Position Sitting 06/22/24 04:14 Pulse Oximetry 95 08/11/24 04:14 Oxygen Delivery Method Room Air 06/22/24 04:14 Oxygen Flow Rate 0 06/22/24 04:14 Medical Decision Making Patient is in protective custody with [facility]. She is medically cleared to go to corrections to sober up. However, the [facility] embedded worker needs to complete the forms for same. Patient is discharged from the ED in [facility] protective [facility]. Quality:SDOH Health Related Social Needs: Health related social needs material hardship PFSH All Active Problems Alcohol intoxication (Acute) Anxiety (Acute 03/15/17) Patellar instability of right knee (Chronic) Oral contraception initial prescription (Acute) Interstitial cystitis (Acute) Ganglion cyst of volar aspect of left wrist (Acute) s/p cyst excision 12/20/21 Medical History Eczema Depression Anxiety Surgical History Hx of wisdom tooth extraction Family History Mother Hyperlipidemia Mental disorder depression/anxiety OCD on disability PMS (premenstrual syndrome) ADHD (attention deficit hyperactivity disorder) Asthma Father Substance abuse Other Substance abuse Essential hypertension Heart disease Hyperlipidemia Mental disorder depression/anxiety Grandparent Substance abuse Essential hypertension Hyperlipidemia Mental disorder depression/anxiety Social History Smoking/Tobacco Use Status: Never Smoking risk assessment performed?: Yes Alcohol Intake: current Alcohol Intake frequency: holidays/special occasions only Alcohol type: beer and wine Drug use: Daily Substance use type: marijuana Details: uses it to help her sleep has not used for a few days Sexually active: Yes Do you think of yourself as: straight/heterosexual Current gender identity: female Do you feel safe at home: Yes Do you feel safe in your relationship?: Yes Female Reproductive History Menstrual Age of Menarche: 11 Duration of menses: 6-7 days control method: none and condoms History History 0 Para Hx # Term Pregnancies Multiple births Hx # Pregnancies Ectopic pregnancies AB induced Hx Number of Living Children AB spontaneous
--- OUTSIDE RECORDS SUMMARY | 2024-06-22 04:28 | XMS_ITS | Encounter Summary ---
Author Organization [facility] Address [address] [place] [address] Care Team Providers Care Retail Marketing Executive Name Role Phone Unavailable Primary Care Provider Unavailabl e Encounter Details Date Type Department Care Team (Late st Contact Info) Description 03/21/2022 Lab Requisition [facility] Pathology & Laboratory Medicine - [facility] [address] [place] [address] Outr Resulting Lab, Provider Social History Tobacco Use Types Packs/Day Years Used Date Smoking Tobacco: Never Assessed Interpersonal Safety Answer Date Record ed Physically Hurt Never 10/05/2020 Verbally Threaten Not on file 10/05/2020 Sex and Gender Information Value Date Recorded Sex Assigned at Not on file Gender Identity Not on file Sexual Orientation Not on file documented as of this encounter Plan of Treatment Not on file documented as of this encounter Procedures Procedure Name Priority Date/Time Associated Diagnosis Comments CHLAMYDIA/N. GONORRHOEAE AMPLIFIED NUCLEIC ACID, THINPREP Routine 03/21/2022 10:30 EDT documented in this encounter Results * CHLAMYDIA/N. GONORRHOEAE AMPLIFIED RNA, THINPREP (03/21/2022 10:30 EDT) Neisseria gonorrhoeae Result Negative Negative 03/22/2022 14:37 EDT [facility] Chlamydia trachomatis Result Negative Negative 03/22/2022 14:37 EDT [facility] Papanicolaou smear specimen (specimen) CERVIX UTERI STRUCTURE / Unknown 03/21/2022 10:30 EDT 03/22/2022 7:49 EDT Provider Outr Resulting Lab MICROBIOLOGY - GENERAL ORDERABLES [facility] [address] [place] [address] documented in this encounter Visit Diagnoses Not on filedocumented in this encounter
--- OUTSIDE RECORDS SUMMARY | 2024-06-22 04:28 | XMS_ITS | Referral Summary ---
Author Organization [facility] Address [address] [place] [address] Care Team Providers Care Electric Distribution Checker Name Role Phone Unavailable Primary Care Provider Unavailabl e Social History Tobacco Use Types Packs/Day Years Used Date Smoking Tobacco: Never Assessed Interpersonal Safety Answer Date Record ed Physically Hurt Never 10/05/2020 Verbally Threaten Not on file 10/05/2020 Sex and Gender Information Value Date Recorded Sex Assigned at Not on file Gender Identity Not on file Sexual Orientation Not on file Plan of Treatment Not on file
--- OUTSIDE RECORDS SUMMARY | 2024-06-22 04:28 | XMS_ITS | Encounter Summary ---
Author Organization [facility] Address [address] [place] [address] Care Team Providers Care Cement Side Laster Name Role Phone Unavailable Primary Care Provider Unavailabl e Encounter Details Date Type Department Care Team (Latest Contact Info) Description 03/22/2022 Lab Requisition [facility] [address] [place] [address] Salud Braga FNP [address] [place] [address] [address] [place] [phone] Encounter for general adult medical examination without abnormal findings; Encounter for screening for malignant neoplasm of cervix; Encounter for gynecological examination (general) (routine) without abnormal findings Social History Tobacco Use Types Packs/Day Years [...] Procedure Name Priority Date/Time Associated Diagnosis Comments PAP TEST Today 03/21/2022 10:30 EDT Encounter for general adult medical examination without abnormal findings Encounter for screening for malignant neoplasm of cervix Encounter for gynecological examination (general) (routine) without abnormal findings documented in this encounter Results * PAP TEST (03/21/2022 10:30 EDT) Specimens A. Cervix and/or Endocervix , ThinPrep Imaging System with Manual Evaluation 03/27/2022 11:07 EDT [facility] Specimen Adequacy Satisfactory for Evaluation - transformation zone component absent 03/27/2022 11:07 EDT [facility] General Categorization Negative for intraepithelial lesion or malignancy 03/27/2022 11:07 EDT [facility] Attestation . 03/27/2022 11:07 EDT [facility] at 1106 Clinical History SEE BELOW 03/27/20 11:07 EDT [facility] Performing Lab [facility] 03/27/2022 11:07 EDT [facility] Scanned Images 03/27/2022 11:07 EDT [facility] Papanicolaou smear specimen (specimen) CERVIX UTERI STRUCTURE / Unknown 03/21/2022 10:30 EDT 03/22/2022 14:48 EDT Salud COLLIER PATHOLOGY ORDERABLES [facility] [address] [place] [address] documented in this encounter Visit Diagnoses Diagnosis Encounter for general adult medical examination without abnormal findings Unspecified general medical examination Encounter for screening for malignant neoplasm of cervix Screening for malignant neoplasm of the cervix Encounter for gynecological examination (general) (routine) without abnormal findings documented in this encounter
--- OUTSIDE RECORDS SUMMARY | 2024-06-22 04:28 | XMS_ITS | Encounter Summary ---
Author Organization [facility] Address [address] [place] [address] Care Team Providers Care Games Dealer Name Role Phone Unavailable Primary Care Provider Unavailabl e Encounter Details Date Type Department Care Team (Late st Contact Info) Description 04/26/2020 Lab Requisition [facility] Pathology & Laboratory Medicine - [facility] [address] [place] [address] Outr Resulting Lab, Provider Social History Tobacco Use Types Packs/Day Years Used Date Smoking Tobacco: Never Assessed Sex and Gender Information Value Date Recorded Sex Assigned at Not on file Gender Identity Not on file Sexual Orientation Not on file documented as of this encounter Plan of Treatment Not on file documented as of this encounter Procedures Procedure Name Priority Date/Time Associated Diagnosis Comments CHLAMYDIA/N. GONORRHOEAE AMPLIFIED NUCLEIC ACID Routine 04/26/2020 13:00 EDT documented in this encounter Results * CHLAMYDIA/N. GONORRHOEAE AMPLIFIED RNA (04/26/2020 13:00 EDT) Neisseria gonorrhoeae Result Negative Negative 04/28/2020 8:51 EDT [facility] Chlamydia trachomatis Result Negative Negative 04/28/2020 8:51 EDT [facility] Urine URINE / Unknown 04/26/2020 1 3:00 EDT 04/26/2020 22:54 EDT Narrative [facility] - 04/28/2020 8:51 EDT A first catch urine specimen is acceptable for detection of Gonorrhea and Chlamydia, but might detect up to 10% fewer infections when compared with vaginal and endocervical swab samples. Provider Outr Resulting Lab MICROBIOLOGY - GENERAL ORDERABLES [facility] [address] [place] [address] documented in this encounter Visit Diagnoses Not on filedocumented in this encounter
--- OUTSIDE RECORDS SUMMARY | 2024-06-22 04:28 | XMS_ITS | Encounter Summary ---
Author Organization [facility] Address [address] [place] [address] Care Team Providers Care Translator Name Role Phone Unavailable Primary Care Provider Unavailabl e Encounter Details Date Type Department Care Team (Late st Contact Info) Description 12/15/2022 Lab Requisition [facility] Pathology & Laboratory Medicine - [facility] [address] [place] [address] Outr Resulting Lab, Provider Social History Tobacco [...] Procedure Name Priority Date/Time Associated Diagnosis Comments ZZCOVID-19 TEST [facility] PCR Today 12/14/2022 15:00 EST COVID-19 TESTING Routine 12/14/2022 15:0 0 EST documented in this encounter Results * COVID-19 TEST [facility] PCR (12/14/2022 15:00 EST) Swab 12/14/2022 15:0 0 EST 12/15/2022 21:29 EST Provider Outr Resulting Lab MICROBIOLOGY - GENERAL ORDERABLES [facility] [address] [place] [address] * COVID-19 TESTING (12/14/2022 15:00 EST) COVID-19 rt-PCR Result Negative Negative 12/16/2022 11:32 EST [facility] Comment: This test has not been FDA cleared or approved. This test has been authorized by FDA under an EUA for use by authorized laboratories. This test has been authorized only for detection of nucleic acid from 2019-nCoV, not for any other viruses or pathogens. This test is only authorized for the duration of the declaration that circumstances exist justifying the authorization of emergency use of in vitro diagnostic tests for detection and/or diagnosis of 2019-nCoV under section 564(b)(1) of Act, 21 U.S.C ?? 360bbb-3(b) (1), unless the authorization is terminated or revoked sooner. Negative results do not preclude 2019-nCoV infection and should not be used as the sole basis for treatment or other patient management decisions. Negative results must be combined with clinical observations, patient history, and epidemiological information. Testing was performed using the vivienne SARS-CoV-2 assay ([employer] on the Vivinene 6800 System Performing Lab Vivienne 6800 [facility] 12/16/2022 11:32 EST [facility] Swab 12/14/2022 15:0 0 EST 12/15/2022 21:29 EST Provider Outr Resulting Lab MICROBIOLOGY - GENERAL ORDERABLES [facility] [address] [place] [address] documented in this encounter Visit Diagnoses Not on filedocumented in this encounter
--- OUTSIDE RECORDS SUMMARY | 2024-06-22 04:28 | XMS_ITS | Clinical Summary ---
Author Organization [facility] Address [address] [place] [address] Care Team Providers Care Livestock Yard Supervisor Name Role Phone Unavailable Primary Care Provider [...] Orientation Not on file Plan of Treatment Health Maintenance Due Date Last Done Comments Hepatitis C Screen 2000 Hepatitis B Vaccine (1 of 3 - 19+ 3-dose series) 11/09 COVID-19 Vaccine ( season) 2023
== END 2024-06-22 04:26 ==
PROVIDERS: Emergency Provider Emergency Medicine; PCP Nurse Practitioner Family
DX: F10.929 Alcohol use, unspecified with intoxication, unspecified (principal); F41.9 Anxiety disorder, unspecified
CPT/HCPCS: 99282; 99283

== ENCOUNTER 2024-09-10 10:09 | Emergency (ER) | payer MEDICAID, SELFPAY ==
[2024-09-10] VITALS (45 sets, daily range): BP systolic 136–159; BP diastolic 94–103; PULSE 65–118; RESP 16–20; TEMP 36.4–36.8; O2SAT 98
[2024-09-10 12:26] LABS: *AMPHETAMINES SCREEN URINE Negative (Negative); *BARBITURATES SCREEN URINE Negative (Negative); *BENZODIAZEPINES SCREEN URINE Negative (Negative); Cannabinoids THC Positive (Negative); Cocaine Screen,Urine Negative (Negative); METHADONE URINE SCREEN Negative (Negative); OPIATES URINE SCREEN Negative (Negative)
[2024-09-10 12:28] LABS: Tricyclic Antidepressants Negative (Negative)
[2024-09-10] MEDS: Nicotine 4 MG GUM CH (13:00)
[2024-09-10] MEDS: LORazepam 1 MG TAB PO ×2 (13:00→22:38)
--- OUTSIDE RECORDS SUMMARY | 2024-09-10 13:14 | XMS_ITS | Encounter Summary ---
Author Organization [facility] Address [address] [place] [address] Care Team Providers Care Direct Marketing Executive Name Role Phone Unavailable Primary Care Provider Unavailabl e Encounter Details Date Type Department Care Team (Latest Contact Info) Description 03/22/2022 Lab Requisition [facility] Pathology & Laboratory Medicine - [facility] [address] [place] [address] Salud Braga FNP [address] [place] [address] [address] [place] [phone] Encounter for general adult medical examination without [...] System with Manual Evaluation 03/27/2022 11:07 EDT [facility] Specimen Adequacy Satisfactory for Evaluation - transformation zone component absent 03/27/2022 11:07 EDT [facility] General Categorization Negative for intraepithelial lesion or malignancy 03/27/2022 11:07 EDT [facility] Attestation . 03/27/2022 11:07 EDT [facility] at 1106 Clinical History SEE BELOW 03/27/20 11:07 EDT [facility] Performing Lab [facility] 03/27/2022 11:07 EDT [facility] Scanned Images 03/27/2022 11:07 EDT [facility] Papanicolaou smear specimen (specimen) CERVIX UTERI STRUCTURE / Unknown 03/21/2022 10:30 EDT 03/22/2022 14:48 EDT Salud COLLIER PATHOLOGY ORDERABLES [facility] [address] [place] [address] documented in this encounter Visit Diagnoses Diagnosis Encounter for general adult medical examination without abnormal findings Unspecified general medical examination Encounter for screening for malignant neoplasm of cervix Screening for malignant neoplasm of the cervix Encounter for gynecological examination (general) (routine) without abnormal findings documented in this encounter
--- OUTSIDE RECORDS SUMMARY | 2024-09-10 13:14 | XMS_ITS | Encounter Summary ---
Author Organization [facility] Address [address] [place] [address] Care Team Providers Care Communications Operator Name Role Phone Unavailable Primary Care Provider Unavailabl e Encounter Details Date Type Department Care Team (Late st Contact Info) Description 12/15/2022 Lab Requisition [facility] Pathology & Laboratory Medicine - [facility] [address] [place] [address] Outr Resulting Lab, Provider Social History Tobacco [...] Priority Date/Time Associated Diagnosis Comments ZZCOVID-19 TEST [facility] PCR Today 12/14/2022 15:00 EST COVID-19 TESTING Routine 12/14/2022 15:0 0 EST documented in this encounter Results * COVID-19 TEST [facility] PCR (12/14/2022 15:00 EST) Swab 12/14/2022 15:0 0 EST 12/15/2022 21:29 EST Provider Outr Resulting Lab MICROBIOLOGY - GENERAL ORDERABLES [facility] [address] [place] [address] * COVID-19 TESTING (12/14/2022 15:00 EST) COVID-19 rt-PCR Result Negative Negative 12/16/2022 11:32 EST [facility] Comment: This test has not [...] performed using the vivienne SARS-CoV-2 assay ([employer]al [employer] on the Vivienne 6800 System Performing Lab Vivienne 6800 [facility] 12/16/2022 11:32 EST [facility] Swab 12/14/2022 15:0 0 EST 12/15/2022 21:29 EST Provider Outr Resulting Lab MICROBIOLOGY - GENERAL ORDERABLES [facility] [address] [place] [address] documented in this encounter Visit Diagnoses Not on filedocumented in this encounter
--- OUTSIDE RECORDS SUMMARY | 2024-09-10 13:14 | XMS_ITS | Referral Summary ---
Author Organization [facility] Address [address] [place] [address] Care Team Providers Care Software Project Manager Name Role Phone Unavailable Primary Care Provider [...]
--- OUTSIDE RECORDS SUMMARY | 2024-09-10 13:14 | XMS_ITS | Clinical Summary ---
Author Organization [facility] Address [address] [place] [address] Care Team Providers Care Design Engineer Products Name Role Phone Unavailable Primary Care Provider [...]
--- OUTSIDE RECORDS SUMMARY | 2024-09-10 13:14 | XMS_ITS | Encounter Summary ---
Author Organization [facility] Address [address] [place] [address] Care Team Providers Care Clerical Office Name Role Phone Unavailable Primary Care Provider Unavailabl e Encounter Details Date Type Department Care Team (Late st Contact Info) Description 03/21/2022 Lab Requisition [facility] Pathology & Laboratory Medicine - [facility] [address] [place] [address] Outr Resulting Lab, Provider Social History Tobacco [...] gonorrhoeae Result Negative Negative 03/22/2022 14:37 EDT [facility] Chlamydia trachomatis Result Negative Negative 03/22/2022 14:37 EDT [facility] Papanicolaou smear specimen (specimen) CERVIX UTERI STRUCTURE / Unknown 03/21/2022 10:30 EDT 03/22/2022 7:49 EDT Provider Outr Resulting Lab MICROBIOLOGY - GENERAL ORDERABLES [facility] [address] [place] [address] documented in this encounter Visit Diagnoses Not on filedocumented in this encounter
--- OUTSIDE RECORDS SUMMARY | 2024-09-10 13:14 | XMS_ITS | Encounter Summary ---
Author Organization [facility] Address [address] [place] [address] Care Team Providers Care Doctor Of Osteopathy Name Role Phone Unavailable Primary Care Provider Unavailabl e Encounter Details Date Type Department Care Team (Late st Contact Info) Description 04/26/2020 Lab Requisition [facility] Pathology & Laboratory Medicine - [facility] [address] [place] [address] Outr Resulting Lab, Provider Social History Tobacco [...] gonorrhoeae Result Negative Negative 04/28/2020 8:51 EDT [facility] Chlamydia trachomatis Result Negative Negative 04/28/2020 8:51 EDT [facility] Urine URINE / Unknown 04/26/2020 1 3:00 EDT 04/26/2020 22:54 EDT Narrative [facility] - 04/28/2020 8:51 EDT A first catch urine specimen is acceptable for detection of Gonorrhea and Chlamydia, but might detect up to 10% fewer infections when compared with vaginal and endocervical swab samples. Provider Outr Resulting Lab MICROBIOLOGY - GENERAL ORDERABLES [facility] [address] [place] [address] documented in this encounter Visit Diagnoses Not on filedocumented in this encounter
[2024-09-10 13:15] LABS: Abs Immature Grans 0.04 10^3/uL (0.0-0.06); Absolute Basophil Count 0.08 10^3/uL (0.0-0.2); Absolute Eosinophil Count 0.04 10^3/uL (0.0-0.7); Absolute Lymphocyte Count 1.73 10^3/uL (1.2-3.4); Absolute Monocyte Count 0.69 10^3/uL (0.1-0.8); Absolute Neutrophil Count 7.17 10^3/uL (1.2-6.7); Basophils % 0.8 %; Eosinophils % 0.4 %; HCT 46.5 % (36.0-46.0); HGB 15.8 g/dL (11.2-15.7); Immature Grans % 0.4 %; Lymphocytes % 17.7 %; MCV 94 fL (80-95); Monocytes % 7.1 %; Neutrophils % 73.6 %; Platelet Count 316 10^3/uL (130-400); RBC 4.93 10^6/uL (3.93-5.22); RDW 13.4 % (11.7-14.6); RDW-SD 46.8 fL; WBC 9.75 10^3/uL (4.4-10.8)
[2024-09-10 13:17] LABS: Magnesium 2.5 mg/dL (1.8-2.4)
[2024-09-10 13:23] LABS: AST 19 U/L (15-37); Albumin 4.2 g/dL (3.4-5.0); Total Protein 8.1 g/dL (6.4-8.2)
[2024-09-10] MEDS: Nicotine 14 MG/24 HR PATCH TD (13:30)
[2024-09-10 13:54] LABS: ALT 17 U/L (14-59); Alkaline Phosphatase 80 U/L (46-116); Anion Gap 14.6 mmol/L (3-11); BUN 11 mg/dL (7-18); Bilirubin, Total 0.17 mg/dL (0.2-1.0); CO2 21.4 mmol/L (21.0-32.0); CREATININE 0.8 mg/dL (0.55-1.02); Calcium 8.7 mg/dL (8.5-10.1); Chloride 110 mmol/L (98-107); ETHANOL BLOOD 220.5 mg/dL (<10); Estimated GFR 106.11 (mL/min/1.73m2); Glucose 94 mg/dL (74-106); Sodium 146 mmol/L (136-145); TSH (W/Ref FT4) 2.31 uIU/mL (0.36-3.74)
--- NOTE | 2024-09-10 14:32 | ED.GENADUL_ITS ---
Discharge Plan Discharge Details Chief Complaint: PsychEval Primary Care Provider: Salud Braga ED Provider: Alberto Partida Home Meds and New Rx's Prescriptions: No Action loratadine [Claritin] 10 mg tablet 10 mg PO DAILY PRN (Reason: allergy symptoms) Qty: 45 2RF levonorgestrel-ethinyl estrad [Altavera (28)] 0.15-0.03 mg tablet 1 tab PO DAILY Qty: 84 4RF buspirone 5 mg tablet 5 mg PO DAILY hydroxyzine HCl 50 mg tablet 50 mg PO QHS Qty: 14 0RF lorazepam [Ativan] 1 mg tablet 1 mg PO DAILY PRNQty: 7 0RF mometasone 50 mcg/actuation [place],Non-Aerosol 1 spray INTRANASAL DAILY acetaminophen 500 mg tablet 500 mg PO Q6H PRN (Reason: pain) Qty: 60 2RF ibuprofen 600 mg tablet 600 mg PO TID PRN (Reason: pain) Qty: 60 0RF HPI <COREY Salinas - Last Filed: 09/11/24 08:19> General Date/Time Provider Initiated Documentation: 09/10/24 10:47 . HPI Narrative: 23-year-old female with history of alcoholism presents with report of depression and passive suicidality. Multiple psychosocial barriers including recent eviction from her apartment and having to live with her mother and also assess relationship with partner. Patient was brought in by [facility] secondary to concern regarding mental health. Patient states she has longstanding history of alcoh olism, she has been drinking alcohol since age of 16. She states she drinks approximately 3 40 ounce beers daily. She states that she predominately drinks at night and private. She is currently homeless does not have a primary care physician nor has any behavioral health resources. She recently lost her insurance and has not had any resources. She denies any chance of . She denies any additional illicit drug use. She denies a specific plan to harm herself. She states that she wants to better her life but feels stuck as she does not know how to change the way things are currently. She is asking for help as she is scheduled to start a new job on 16 September and would like to become more independent. Related Data Home Medications ?Medication ?Instructions ?Recorded ?Confirmed loratadine 10 mg tablet (Claritin) 10 mg PO DAILY PRN allergy 12/25/19 09/10/24 symptoms #45 tabs levonorgestrel 0.15 mg-ethinyl 1 tab PO DAILY #84 tabs 04/26/20 09/10/24 estradiol 0.03 mg tablet (Altavera (28)) buspirone 5 mg tablet 5 mg PO DAILY 05/31/21 09/10/24 mometasone 50 mcg/actuation nasal 1 spray intranasal DAILY 12/19/21 09/10/24 spray acetaminophen 500 mg tablet 500 mg PO Q6H PRN pain #60 tabs 12/20/21 09/10/24 ibuprofen 600 mg tablet 600 mg PO TID PRN pain #60 tabs 12/20/21 09/10/24 hydroxyzine HCl 50 mg tablet 50 mg PO QHS #14 tabs 06/04/22 09/10/24 lorazepam 1 mg tablet (Ativan) 1 mg PO DAILY PRN #7 tabs 06/04/22 09/10/24 Previous Rx's ?Medication ?Instructions ?Recorded loratadine 10 mg tablet (Claritin) 10 mg PO DAILY PRN allergy 12/25/19 symptoms #45 tabs levonorgestrel 0.15 mg-ethinyl 1 tab PO DAILY #84 tabs 04/26/20 estradiol 0.03 mg tablet (Altavera (28)) acetaminophen 500 mg tablet 500 mg PO Q6H PRN pain #60 tabs 12/20/21 ibuprofen 600 mg tablet 600 mg PO TID PRN pain #60 tabs 12/20/21 hydroxyzine HCl 50 mg tablet 50 mg PO QHS #14 tabs 06/04/22 lorazepam 1 mg tablet (Ativan) 1 mg PO DAILY PRN #7 tabs 06/04/22 Allergies Allergy/AdvReac Type Severity Reaction Status Date / Time No Known Allergies Allergy Verified 09/10/24 10:18 General Stated Complaint: PsychEval SHRADDHA: 2 Exam <COREY Salinas - Last Filed: 09/11/24 08:19> Narrative Exam Narrative: Alert and oriented 23-year-old female crying, pupils equal round reactive to light and accommodation, no visible signs of trauma, no respiratory distress, cardiac rate rhythm regular, no abdominal tenderness and no visible signs of trauma, she is GCS 15, alert and oriented x 4, tearful, denies current suicidal ideation but states she feels very depressed, insight intact, ambulatory with steady gait Course <COREY Salinas - Last Filed: 09/11/24 08:19> Vital Signs Vital signs: Vital Signs Temperature 36.8 C 09/10/24 10:11 Pulse 105 H 09/10/24 10:11 Respiratory Rate 16 09/10/24 10:11 Blood Pressure 159/103 H 09/10/24 10:11 Pulse Oximetry 98 09/10/24 10:11 Temperature 36.8 C 09/10/24 10:11 Temperature Source Temporal Artery Scan 09/10/24 10:11 Pulse 104 H 09/10/24 12:41 Pulse 72 09/10/24 14:20 Respiratory Rate 16 09/10/24 10:11 Respiratory Effort Normal 09/10/24 10:20 Respiratory Pattern Normal 09/10/24 11:56 Blood Pressure 159/103 H 09/10/24 10:11 Blood Pressure Position Sitting 09/10/24 10:11 Pulse Oximetry 98 09/10/24 10:11 Oxygen Delivery Method Room Air 09/10/24 10:11 Oxygen Flow Rate 0 09/10/24 10:11 Pain Level 0 09/10/24 10:11 Lab/Test Results Lab/Test Results: Laboratory Tests Range/Units 09/10/24 09/10/24 11:30 12:45 WBC (4.4-10.8) 10^3/uL 9.75 RBC (3.93-5.22) 10^6/uL 4.93 Hgb (11.2-15.7) g/dL 15.8 H Hct (36.0-46.0) % 46.5 H MCV (80-95) fL 94 MCH (27.0-33.0) pg 32.0 MCHC (32.0-36.0) % 34.0 RDW (11.7-14.6) % 13.4 Plt Count (130-400) 10^3/uL 316 MPV (8.0-11.0) fL 9.0 Immature Gran % % 0.4 Neutrophils % % 73.6 Lymphocytes % % 17.7 Monocytes % % 7.1 Eosinophils % % 0.4 Basophils % % 0.8 Nucleated RBC % (0.0-0.3) % 0.0 Absolute Neutrophils (1.2-6.7) 10^3/uL 7.17 H Absolute Lymphocytes (1.2-3.4) 10^3/uL 1.73 Absolute Monocytes (0.1-0.8) 10^3/uL 0.69 Absolute Eosinophils (0.0-0.7) 10^3/uL 0.04 Absolute Basophils (0.0-0.2) 10^3/uL 0.08 Sodium (136-145) mmol/L 146 H Potassium (3.5-5.1) mmol/L 4.0 Chloride (98-107) mmol/L 110 H Carbon Dioxide (21.0-32.0) mmol/L 21.4 Anion Gap (3-11) mmol/L 14.6 H BUN (7-18) mg/dL 11 Creatinine (0.55-1.02) mg/dL 0.8 Est GFR (CKD-EPI 2020) (mL/min/1.73m2) 106.11 Glucose (74-106) mg/dL 94 Calcium (8.5-10.1) mg/dL 8.7 Magnesium (1.8-2.4) mg/dL 2.5 H Total Bilirubin (0.2-1.0) mg/dL 0.17 L AST (15-37) U/L 19 ALT (14-59) U/L 17 Alkaline Phosphatase (46-116) U/L 80 Total Protein (6.4-8.2) g/dL 8.1 Albumin (3.4-5.0) g/dL 4.2 TSH (0.36-3.74) uIU/mL 2.31 Urine Opiates Screen (Negative) Negative Urine Methadone Screen (Negative) Negative Ur Barbiturates Screen (Negative) Negative Ur Tricyclics Screen (Negative) Negative Ur Amphetamines Screen (Negative) Negative U Benzodiazepines Scrn (Negative) Negative Urine Cocaine Screen (Negative) Negative Ur THC Screen (Negative) Positive A Ethyl Alcohol (<10) mg/dL 220.5 H POC- Test(urine) Negative Medical Decision Making <COREY Salinas - Last Filed: 09/11/24 08:19> 23-year-old female presenting with passive suicidality and history of alcoholism. Alcohol is elevated, however clinically sober at time of my assessment. Does endorse consuming alcohol today. Does also endorse smoking marijuana, THC positive but no other substances displayed. Patient currently denying any pain complaints or chance of with negative POC . Basic labs do not show evidence of significant acute abnormality, mild dehydration, encouraged fluids. I have involved [facility] and [facility] human services and patient meets criteria for voluntary admission for depression and passive suicidality she is willing to stay at this time. As she is an alcoholic, CIWA will be performed every hour with Ativan ordered every 8 hours as needed. Nicotine patch and gum supplied. Will continue to observe pending voluntary placement Quality:[facility] Health Related Social Needs: Health related social needs material hardship(utilitie s)(Z59.87) [facility] <COREY Salinas - Last Filed: 09/11/24 08:19> All Active Problems Anxiety (Acute 03/15/17) Patellar instability of right knee (Chronic) Oral contraception initial prescription (Acute) Interstitial cystitis (Acute) Ganglion cyst of volar aspect of left wrist (Acute) s/p cyst excision 12/20/21 Medical History Eczema Depression Anxiety Surgical History Hx of wisdom tooth extraction Family History Mother Hyperlipidemia Mental disorder depression/anxiety OCD on disability PMS (premenstrual syndrome) ADHD (attention deficit hyperactivity disorder) Asthma Father Substance abuse Other Substance abuse Essential hypertension Heart disease Hyperlipidemia Mental disorder depression/anxiety Grandparent Substance abuse Essential hypertension Hyperlipidemia Mental disorder depression/anxiety Social History Smoking/Tobacco Use Status: Never Smoking risk assessment performed?: Yes Alcohol Intake: current Alcohol Intake frequency: holidays/special occasions only Alcohol type: beer and wine Drug use: Daily Substance use type: marijuana Details: uses it to help her sleep has not used for a few days Sexually active: Yes Do you think of yourself as: straight/heterosexual Current gender identity: female Do you feel safe at home: Yes Do you feel safe in your relationship?: Yes Female Reproductive History Menstrual Age of Menarche: 11 Duration of menses: 6-7 days control method: none and condoms History History 0 Para Hx # Term Pregnancies Multiple births Hx # Pregnancies Ectopic pregnancies AB induced Hx Number of Living Children AB spontaneous Sign Out <COREY Salinas - Last Filed: 09/11/24 08:19> Sign Out Data: Sign Out Comment: voluntary psych placement pending, alcoholic- CIWA in place, passive SI/Depression Last updated by Meghan Almonte PA at 09/10/24 15:34 Sign Out Comment: Voluntary, ETOH on arrival- no withdrawal. Had plan to drink self to . No complications during today's shift Last updated by Roosevelt Lloyd PA at 09/10/24 21:19 Sign Out Comment: No issues overnight. Remains voluntary for inpatient admission for depression and SI. Last updated by Franco Briceño MD at 09/11/24 06:48 PAWSS <COREY Salinas - Last Filed: 09/11/24 08:19> Have you Been Recently Intoxicated or Drunk Within the Last 30 days?: Yes Have you Ever Experienced Previous Episodes of Alcohol Withdrawal?: No Have you ever Experienced Withdrawal Seizures?: No Have you ever Experienced Delirium Tremens(DT)s?: No Have you ever undergone Alcohol Rehabilitation Treatment (i.e, inpt ot outpatient treatment programs)?: No Have you ever Experienced Blackouts?: Yes Have you ever Combined Alcohol with other Downers within the last 90 days?: No Have you ever Combined Alcohol with any other Substance of Abuse during the last 90 days?: No Positive Blood Alcohol level on Presentation? [PCS.BAL]: No Evidence of Increased Autonomic Activity (i.e. HR>120, tremor, sweating, agitation, nausea)?: No Result: 2 <COREY Renae - Last Filed: 09/10/24 16:06> Result: 2 <Franco Briceño MD - Last Filed: 09/11/24 07:24> Result: 2 <Alberto Partida MD - Last Filed: 09/11/24 07:43> Result: 2
--- NOTE | 2024-09-10 16:12 | ED.PROG_ITS ---
Date of service: 09/10/24 Time of Service: 16:13 Medical Decision Making This dictation utilizes [id number] dictation software and may contain unedited grammatical errors. Patient seen in signout from Meghan Almonte PA-C, please see her complete note. Essentially this 23-year-old female is on a voluntary inpatient bed search for psychiatric issues-plan to drink herself to , she stopped taking all of her meds and is currently homeless, she had an EtOH level of 220 on arrival and received 1 dose of Ativan but had no signs of withdrawal and was resting comfortably the entire shift. CIWA's are currently ordered every 4 hours but can be canceled should she pass the test of time. Patients' medical history: Anxiety. Pertinent exam findings / vital signs include resting comfortably. Differential / pathologies of concern include suicidal ideation, substance abuse issues. Diagnostic studies of: -Reviewed prior lab studies, no actionable abnormalities, EtOH was 220, tested positive for THC, had mildly elevated magnesium at 2.5 just above normal. Interventions of: -No interventions required during my shift. ED Course/Assessment/Plan: 23-year-old female is awaiting voluntary placement for psychiatric issues, did present significantly intoxicated but has shown no signs of significant withdrawal as she has metabolized, patient signed out to oncoming EM attending provider Dr. Tomás Briceño at shift change without any complications. Disposition of Suicidal Ideation. Patient verbalized understanding of the plan and return to ED criteria and engaged in shared decision making. Medical Records Medical records reviewed: Yes I reviewed the patient's medical records. Lab Data Lab results reviewed: Yes I reviewed the patient's lab results. Labs: Laboratory Tests Range/Units 09/10/24 09/10/24 11:30 12:45 WBC (4.4-10.8) 10^3/uL 9.75 RBC (3.93-5.22) 10^6/uL 4.93 Hgb (11.2-15.7) g/dL 15.8 H Hct (36.0-46.0) % 46.5 H MCV (80-95) fL 94 MCH (27.0-33.0) pg 32.0 MCHC (32.0-36.0) % 34.0 RDW (11.7-14.6) % 13.4 Plt Count (130-400) 10^3/uL 316 MPV (8.0-11.0) fL 9.0 Immature Gran % % 0.4 Neutrophils % % 73.6 Lymphocytes % % 17.7 Monocytes % % 7.1 Eosinophils % % 0.4 Basophils % % 0.8 Nucleated RBC % (0.0-0.3) % 0.0 Absolute Neutrophils (1.2-6.7) 10^3/uL 7.17 H Absolute Lymphocytes (1.2-3.4) 10^3/uL 1.73 Absolute Monocytes (0.1-0.8) 10^3/uL 0.69 Absolute Eosinophils (0.0-0.7) 10^3/uL 0.04 Absolute Basophils (0.0-0.2) 10^3/uL 0.08 Sodium (136-145) mmol/L 146 H Potassium (3.5-5.1) mmol/L 4.0 Chloride (98-107) mmol/L 110 H Carbon Dioxide (21.0-32.0) mmol/L 21.4 Anion Gap (3-11) mmol/L 14.6 H BUN (7-18) mg/dL 11 Creatinine (0.55-1.02) mg/dL 0.8 Est GFR (CKD-EPI 2020) (mL/min/1.73m2) 106.11 Glucose (74-106) mg/dL 94 Calcium (8.5-10.1) mg/dL 8.7 Magnesium (1.8-2.4) mg/dL 2.5 H Total Bilirubin (0.2-1.0) mg/dL 0.17 L AST (15-37) U/L 19 ALT (14-59) U/L 17 Alkaline Phosphatase (46-116) U/L 80 Total Protein (6.4-8.2) g/dL 8.1 Albumin (3.4-5.0) g/dL 4.2 TSH (0.36-3.74) uIU/mL 2.31 Urine Opiates Screen (Negative) Negative Urine Methadone Screen (Negative) Negative Ur Barbiturates Screen (Negative) Negative Ur Tricyclics Screen (Negative) Negative Ur Amphetamines Screen (Negative) Negative U Benzodiazepines Scrn (Negative) Negative Urine Cocaine Screen (Negative) Negative Ur THC Screen (Negative) Positive A Ethyl Alcohol (<10) mg/dL 220.5 H Quality:SDOH Health Related Social Needs: Health related social needs material hardship(james s)(Z59.87) Sign Out Sign Out Data: Sign Out Comment: voluntary psych placement pending, alcoholic- CIWA in place, passive SI/Depression Last updated by Meghan Almonte PA at 09/10/24 15:34 Sign Out Comment: Voluntary, ETOH on arrival- no withdrawal. Had plan to drink self to . No complications during today's shift Last updated by Roosevelt Lloyd, PA at 09/10/24 21:19 Discharge Plan Discharge Details Chief Complaint: PsychEval Primary Care Provider: Salud Braga ED Provider: Roosevelt Lloyd Home Meds and New Rx's Prescriptions: No Action loratadine [Claritin] 10 mg tablet 10 mg PO DAILY PRN (Reason: allergy symptoms) Qty: 45 2RF levonorgestrel-ethinyl estrad [Altavera (28)] 0.15-0.03 mg tablet 1 tab PO DAILY Qty: 84 4RF buspirone 5 mg tablet 5 mg PO DAILY hydroxyzine HCl 50 mg tablet 50 mg PO QHS Qty: 14 0RF lorazepam [Ativan] 1 mg tablet 1 mg PO DAILY PRNQty: 7 0RF mometasone 50 mcg/actuation [place],Non-Aerosol 1 spray INTRANASAL DAILY acetaminophen 500 mg tablet 500 mg PO Q6H PRN (Reason: pain) Qty: 60 2RF ibuprofen 600 mg tablet 600 mg PO TID PRN (Reason: pain) Qty: 60 0RF
--- NOTE | 2024-09-10 17:26 | CMSP_ITS ---
Date of service: 09/10/24 Time of Service: 13:00 Care Management Safety Plan Status Status: Voluntary Reason for Wait Reason for Wait: Assessment/Screening Safety Plan Safety Plan: VOLUNTARY FOR INPATIENT PSYCHIATRIC STABILIZATION.? Patient is appropriate in all interactions since arriving at [facility]; Pt has demonstrated appropriate coping and communication skills, has articulated his or her needs and concerns and is fully engaged during staff interactions. Safety plan has been established with patient, and care team, to adhere to patient goals, identify restrictions based on behavioral status, address nutrition, and determine allowed personal belongings, tools for hygiene and personal care. Determine level of activity including ambulation, level of super vision, visitors, and determine privileges based on behaviors and level of engagement by pt. VOLUNTARY SAFETY PLAN: 1. Will remain on suicide precautions, in paper clothes 2. Will remain in Zone B under direct supervision of one-on-one staff at all times provided by [employer]; PAULA, ORTHOPEDIC DENTIST photoengraving supervisor. 3. May have paper cups, plates, finger foods as well as a cardboard spoon with which to eat meals. 4. Follow [facility] Management of the Admitted Behavioral Health Patient policy. 5. Shower available in Zone B without restriction. 6. Personal belongings-soft items permitted at RN discretion. 7. Visitors-none at this time. 8. Activities: soft cart items approved per RN discretion. 9.? Bathroom available in Zone B without restriction. 10. Phone: limited to [facility] cordless phone at RN discretion. Lynda was still awaiting her [facility] screening. Per report, she has not SI or HI and has been sleeping most of the day. Due to VOLUNTARY status, if patient wishes to leave [facility], staff will contact [facility] Crisis Screener ([phone]) and Medical Assisting Program Director ([phone]) as soon as possible. In the event of elopement, notify [place] [employer] ([phone]). Patient is currently voluntarily at [facility] and seeking inpatient admission when a bed becomes available. [facility] Frontline Superintendent Track will continue seeking placement. Please contact the Medical Assisting Program Director ([phone]) and [facility] Superintendent Track ([phone]) for any needed changes in the Safety Plan. Safety plan has been provided to interdepartmental care team.
--- NOTE | 2024-09-10 17:26 | PDOC.CMSAFE ---
Date of service: 09/10/24 Time of Service: 13:00 Care Management Safety Plan Status Status: Voluntary Reason for Wait Reason for Wait: Assessment/Screening Safety Plan Safety Plan: VOLUNTARY FOR INPATIENT PSYCHIATRIC STABILIZATION.? Patient is appropriate in all interactions since arriving at [facility]; Pt has demonstrated appropriate coping and communication skills, has articulated his or her needs and concerns and is fully engaged during staff interactions. Safety plan has been established with patient, and care team, to adhere to patient goals, identify restrictions based on behavioral status, address nutrition, and determine allowed personal belongings, tools for hygiene and personal care. Determine level of activity including ambulation, level of supervision, visitors, and determine privileges based on behaviors and level of engagement by pt. VOLUNTARY SAFETY PLAN: 1. Will remain on suicide precautions, in paper clothes 2. Will remain in Zone B under direct supervision of one-on-one staff at all times provided by [employer]; PAULA, MINE EXPERT consumer loan processor. 3. May have paper cups, plates, finger foods as well as a cardboard spoon with which to eat meals. 4. Follow [facility] Management of the Admitted Behavioral Health Patient policy. 5. Shower available in Zone B without restriction. 6. Personal belongings-soft items permitted at RN discretion. 7. Visitors-none at this time. 8. Activities: soft cart items approved per RN discretion. 9.? Bathroom available in Zone B without restriction. 10. Phone: limited to [facility] cordless phone at RN discretion. Lynda was still awaiting her [facility] screening. Per report, she has not SI or HI and has been sleeping most of the day. Due to VOLUNTARY status, if patient wishes to leave [facility], staff will contact [facility] Crisis Screener ([phone]) and Administrative Law Judge ([phone]) as soon as possible. In the event of elopement, notify [place] [employer] ([phone]). Patient is currently voluntarily at [facility] and seeking inpatient admission when a bed becomes available. [facility] Frontline Director Of Kids will continue seeking placement. Please contact the Administrative Law Judge ([phone]) and [facility] Director Of Kids ([phone]) for any needed changes in the Safety Plan. Safety plan has been provided to interdepartmental care team.
[2024-09-10] MEDS: Nicotine 2 MG GUM CH (20:43)
--- NOTE | 2024-09-11 07:44 | ED.PROG_ITS ---
Date of service: 09/11/24 Time of Service: 07:44 Medical Decision Making Patient currently seeking voluntary placement for depression and thoughts of self-harm, no reported issues on prior shift and currently no acute complaints. Will continue to monitor until safe disposition found. Quality:SDOH Health Related Social Needs: Health related social needs material hardship(james goodwin(Z59.87) Sign Out Sign Out Data: Sign Out Comment: voluntary psych placement pending, alcoholic- CIWA in place, passive SI/Depression Last updated by Meghan Almonte PA at 09/10/24 15:34 Sign Out Comment: Voluntary, ETOH on arrival- no withdrawal. Had plan to drink self to . No complications during today's shift Last updated by Roosevelt Lloyd PA at 09/10/24 21:19 Sign Out Comment: No issues overnight. Remains voluntary for inpatient admission for depression and SI. Last updated by Franco Briceño MD at 09/11/24 06:48 Discharge Plan Discharge Details Chief Complaint: PsychEval Primary Care Provider: Salud Braga ED Provider: Alberto Partida [place] Meds and New Rx's Prescriptions: No Action loratadine [Claritin] 10 mg tablet 10 mg PO DAILY PRN (Reason: allergy symptoms) Qty: 45 2RF levonorgestrel-ethinyl estrad [Altavera (28)] 0.15-0.03 mg tablet 1 tab PO DAILY Qty: 84 4RF buspirone 5 mg tablet 5 mg PO DAILY hydroxyzine HCl 50 mg tablet 50 mg PO QHS Qty: 14 0RF lorazepam [Ativan] 1 mg tablet 1 mg PO DAILY PRNQty: 7 0RF mometasone 50 mcg/actuation [place],Non-Aerosol 1 spray INTRANASAL DAILY acetaminophen 500 mg tablet 500 mg PO Q6H PRN (Reason: pain) Qty: 60 2RF ibuprofen 600 mg tablet 600 mg PO TID PRN (Reason: pain) Qty: 60 0RF
[2024-09-11 09:15] VITALS: BP 148/96; PULSE 124; RESP 18; TEMP 35.8; O2SAT 98
[2024-09-11] MEDS: Nicotine 14 MG/24 HR PATCH TD (10:14)
[2024-09-11] MEDS: LORazepam 1 MG TAB PO (11:13)
--- NOTE | 2024-09-11 11:28 | ED.PROG_ITS ---
Date of service: 09/11/24 Time of Service: 11:28 Medical Decision Making spoke with [facility] who reviewed the case and accepted to their facility for further treatment Quality:SDOH Health Related Social Needs: Health related social needs material hardship(james marie)(Z59.87) Sign Out Sign Out Data: Sign Out Comment: voluntary psych placement pending, alcoholic- CIWA in place, passive SI/Depression Last updated by Meghan Almonte PA at 09/10/24 15:34 Sign Out Comment: Voluntary, ETOH on arrival- no withdrawal. Had plan to drink self to . No complications during today's shift Last updated by Roosevelt Lloyd PA at 09/10/24 21:19 Sign Out Comment: No issues overnight. Remains voluntary for inpatient admission for depression and SI. Last updated by Franco Briceño MD at 09/11/24 06:48 Discharge Plan Disposition Specific Psychiatric Facility: [facility] [place] Condition: Stable Discharge Details Chief Complaint: PsychEval Clinical Impression: Alcohol abuse, Depression Primary Care Provider: Salud Braga ED Provider: Alberto Partida [place] Meds and New Rx's Prescriptions: No Action loratadine [Claritin] 10 mg tablet 10 mg PO DAILY PRN (Reason: allergy symptoms) Qty: 45 2RF levonorgestrel-ethinyl estrad [Altavera (28)] 0.15-0.03 mg tablet 1 tab PO DAILY Qty: 84 4RF buspirone 5 mg tablet 5 mg PO DAILY hydroxyzine HCl 50 mg tablet 50 mg PO QHS Qty: 14 0RF lorazepam [Ativan] 1 mg tablet 1 mg PO DAILY PRNQty: 7 0RF mometasone 50 mcg/actuation [place],Non-Aerosol 1 spray INTRANASAL DAILY acetaminophen 500 mg tablet 500 mg PO Q6H PRN (Reason: pain) Qty: 60 2RF ibuprofen 600 mg tablet 600 mg PO TID PRN (Reason: pain) Qty: 60 0RF
--- NOTE | 2024-09-12 11:16 | NUR.NOTE ---
Nursing Note: this RN in chart D/T mother who is on HIPPA form was looking for patient she stated she was missing for a few days. PT transfer to [facility]
== END 2024-09-11 12:16 ==
PROVIDERS: Physician Assistant; Emergency Provider Emergency Medicine; PCP Nurse Practitioner Family
DX: R45.851 Suicidal ideations (principal); F32.A Depression, unspecified; F10.220 Alcohol dependence with intoxication, uncomplicated; Y90.7 Blood alcohol level of 200-239 mg/100 ml; Z59.00 Homelessness unspecified
CPT/HCPCS: 00123; 80053; 80307; 99285; 80320; 83735; 84443; 85025

== ENCOUNTER 2024-12-14 21:53 | Emergency (ER) | payer MEDICAID, SELFPAY ==
[2024-12-14 21:55] VITALS: BP 155/115; PULSE 110; RESP 16; TEMP 37.1; O2SAT 97
--- NOTE | 2024-12-14 22:45 | W.ED.GENAD ---
Discharge Plan Disposition Patient Disposition: Home Condition: Good Discharge Details Clinical Impression: Dermatitis, Anxiety, Passive suicidal ideations Primary Care Provider: Salud Braga ED Provider: Juliette Vu Home Meds and New Rx's Prescriptions: Continued loratadine [Claritin] 10 mg tablet 10 mg PO DAILY PRN (Reason: allergy symptoms) Qty: 45 2RF hydroxyzine HCl 50 mg tablet 50 mg PO QHS Qty: 14 0RF propranolol 10 mg tablet 10 mg PO DAILY Patient Comments: TAKE ONE TABLET BY MOUTH TWICE A DAY metronidazole 0.75 % cream 1 applic TOPICAL DAILY Patient Comments: APPLY A THIN LAYER TO THE AFFECTED AREA(S) TWO TIMES A DAY ( MORNING AND EVENING) mometasone 50 mcg/actuation [place],Non-Aerosol 1 spray INTRANASAL DAILY acetaminophen 500 mg tablet 500 mg PO Q6H PRN (Reason: pain) Qty: 60 2RF ibuprofen 600 mg tablet 600 mg PO TID PRN (Reason: pain) Qty: 60 0RF Discharge Instructions Instructions: Suicide Prevention, Skin Rash ED Additional Instructions: Use the hydrocortisone cream you were given. If you find this is making things worse, stop using at and see your primary care doctor. Please return at any time if you would like mental health evaluation. Call your primary care doctor in the morning to schedule an appointment to followup on your visit today. Return to the emergency department for new or worsening symptoms including fever, thoughts of hurting yourself or killing yourself, if you feel unsafe, or if you have any other concerns. Referrals: Salud Braga [Primary Care Provider] - [facility] General Mode of arrival: ambulatory. Date/Time Provider Initiated Documentation: 12/14/24 21:57. Limitations to Documentation: no limitations. Information obtained by: patient. HPI Narrative: 24yo with hx of eczema, anxiety, depression, presenting for rash around mouth. First noted about 1 month ago, at that time started as small 'pimples' . Went to urgent care about three weeks ago and was prescribed metronidozole ointment; this initially seemed to improve the rash but after a week or two it began to worsen again. Is larger, redder, itchier, and more uncomfortable. She also reports a stressful home environment and an argument with her mother (whom she lives with) who did drop her off in the ED but then reportedly stated 'good luck trying to get home'. She is not sure she has a place to stay tonight. Has been more anxious and stressed overall lately and has had some thoughts that she might be 'better off' if she was . No plans to harm herself. No prior suicide attempts. No prior psychiatric admissions. Was seeing a mental health provider in [place] but missed several appointments; is planning on restarting them. Willing to talk to [facility]. Otherwise in her usual state of health with no fevers, chills, nausea, vomiting, abdominal pain, throat pain, or other concerns. Related Data Home Medications ?Medication ?Instructions ?Recorded ?Confirmed loratadine 10 mg tablet (Claritin) 10 mg PO DAILY PRN allergy 12/25/19 12/14/24 symptoms #45 tabs mometasone 50 mcg/actuation nasal 1 spray intranasal DAILY 12/19/21 12/14/24 spray acetaminophen 500 mg tablet 500 mg PO Q6H PRN pain #60 tabs 12/20/21 12/14/24 ibuprofen 600 mg tablet 600 mg PO TID PRN pain #60 tabs 12/20/21 12/14/24 hydroxyzine HCl 50 mg tablet 50 mg PO QHS #14 tabs 06/04/22 12/14/24 metronidazole 0.75 % topical cream 1 applic topical DAILY 12/14/24 12/14/24 propranolol 10 mg tablet 10 mg PO DAILY 12/14/24 12/14/24 Previous Rx's ?Medication ?Instructions ?Recorded loratadine 10 mg tablet (Claritin) 10 mg PO DAILY PRN allergy 12/25/19 symptoms #45 tabs acetaminophen 500 mg tablet 500 mg PO Q6H PRN pain #60 tabs 12/20/21 ibuprofen 600 mg tablet 600 mg PO TID PRN pain #60 tabs 12/20/21 hydroxyzine HCl 50 mg tablet 50 mg PO QHS #14 tabs 06/04/22 Allergies Allergy/AdvReac Type Severity Reaction Status Date / Time No Known Allergies Allergy Verified 12/14/24 22:04 General Stated Complaint: RashLesion SHRADDHA: 4 Review of Systems Narrative: see HPI Exam Narrative Exam Narrative: General: Alert, well appearing, well nourished, in no acute distress. [place] lips frequently. Head: Normocephalic, atraumatic Neck: Trachea midline, ?Neck supple. ENT: ?MMM.? No intraoral lesions Cardiac: ?Tachycardiac, regular. Resp: No respiratory distress. Speaking in full sentences. Abd: ?Non-distended Extremities: ?No deformities.? No peripheral edema. Neurologic: GCS 15. ? Moves all extremities freely against gravity Skin: Scaly erythamtous macules 0.5-1cm in size, blanchable, located around margin of lips. -[place]ky. No vesicles or pustules. Single additional identical lesion on left distal anterior forearm. No intraoral involvment, no involvement of palms or soles. Psych: Calm, cooperative.? Well groomed.? Mood anxious, affect congruent.? Speech with normal volume, rate, rythym and tone. Linear and goal directed.? +SI, no plan. Denies HI/AH/VH. ? Does not appear to be responding to internal stimuli. Course Vital Signs Vital signs: Vital Signs Temperature 37.1 C 12/14/24 21:55 Pulse 110 H 12/14/24 21:55 Respiratory Rate 16 12/14/24 21:55 Blood Pressure 155/115 H 12/14/24 21:55 Pulse Oximetry 97 12/14/24 21:55 Temperature 37.1 C 12/14/24 21:55 Temperature Source Oral 12/14/24 21:55 Pulse 110 H 12/14/24 21:55 Respiratory Rate 16 12/14/24 21:55 Blood Pressure 155/115 H 12/14/24 21:55 Blood Pressure Position Sitting 12/14/24 21:55 Pulse Oximetry 97 12/14/24 21:55 Oxygen Delivery Method Room Air 12/14/24 21:55 Oxygen Flow Rate 0 12/14/24 21:55 Comment pt stated her blood pressure is high a lot, BP is after 3 with different sized cuffs and arms 12/14/24 21:55 Medical Decision Making 24yo with hx of eczema, anxiety, depression, presenting for rash around mouth. First noted about 1 month ago, at that time started as small 'pimples'; improved after abx ointment but then began to worsen, now larger/redder/itchier. Systemically well. Also reports anxiety and significant stress at home and not sure if she has a place to stay tonight, endorsees passive SI with no plan or intent. Has been drinking 1-2 glasses of wine nightly to help with sleep, no hx ETOH withdrawal. Hypertensive and tachycardiac to 110's on arrival (suspect 2/t anxiety) vital signs otherwise reassuring. Systemically well. On exam she has ccaly erythamtous macules 0.5-1cm in size, blanchable, located around margin of lips with no vesicles or pustules. [place] the area frequently. Rash not suggestive of viral [place], HSV, MRSA, scabies, DIC, SJS, TEN, cocksackie, DRESS. Likely impetigo vs dermatitis; based on history and current exam seems most likely that it started as infectious given initial improvement with abx, however exam now is more consistent with dermatitis. Advised her to stop using her current chapstick and switch from metronidazole ointment to hydrocortisone and monitor for effect. Given 0.5mg PO ativan for anxiety. Will plan for her to speak with mental health when medically cleared. Labs reviewed as below, CBC reassuring with no leukocytosis or anemia, CMP with no actionable abnormalities, ETOH 193. Patient reports that she did drink 'a bottle' of wine tonight. Appears clinically sober and ambulates steadily independently. While initially willing to speak to [facility], she now states that she would prefer to followp solely with her existing outpatient providers and will call them in the morning. Her fiancee is here to pick her up and she can stay with him tonight. She states to me that she feels entirely safe to go home, continues to deny suicidal plan or intent, and will return if her symptoms worsen. Her plan is reasonable and she does not meet criteria for an involuntary psych hold. Discharged home to followup with PCP and outpatient psych providers. Discharge instructions and return precautions were reviewed with patient who verbalized understanding. All questions were answered and she is in full agreement with the plan. Lab Data Lab results reviewed: Yes I reviewed the patient's lab results. Labs: Laboratory Tests Range/Units 12/14/24 23:10 WBC (4.4-10.8) 10^3/uL 7.85 RBC (3.93-5.22) 10^6/uL 4.77 Hgb (11.2-15.7) g/dL 15.2 Hct (36.0-46.0) % 45.1 MCV (80-95) fL 95 MCH (27.0-33.0) pg 31.9 MCHC (32.0-36.0) % 33.7 RDW (11.7-14.6) % 12.8 Plt Count (130-400) 10^3/uL 302 MPV (8.0-11.0) fL 8.9 Immature Gran % % 0.4 Neutrophils % % 63.7 Lymphocytes % % 21.3 Monocytes % % 12.9 Eosinophils % % 0.8 Basophils % % 0.9 Nucleated RBC % (0.0-0.3) % 0.0 Absolute Neutrophils (1.2-6.7) 10^3/uL 5.01 Absolute Lymphocytes (1.2-3.4) 10^3/uL 1.67 Absolute Monocytes (0.1-0.8) 10^3/uL 1.01 H Absolute Eosinophils (0.0-0.7) 10^3/uL 0.06 Absolute Basophils (0.0-0.2) 10^3/uL 0.07 Sodium (136-145) mmol/L 143 Potassium (3.5-5.1) mmol/L 3.6 Chloride (98-107) mmol/L 106 Carbon Dioxide (21.0-32.0) mmol/L 26.4 Anion Gap (3-11) mmol/L 10.6 BUN (7-18) mg/dL 13 Creatinine (0.55-1.02) mg/dL 0.8 Est GFR (CKD-EPI 2020) (mL/min/1.73m2) 105.45 Glucose (74-106) mg/dL 164 H Calcium (8.5-10.1) mg/dL 8.5 Total Bilirubin (0.2-1.0) mg/dL 0.24 AST (15-37) U/L 20 ALT (14-59) U/L 21 Alkaline Phosphatase (46-116) U/L 70 Total Protein (6.4-8.2) g/dL 7.7 Albumin (3.4-5.0) g/dL 4.0 Ethyl Alcohol (<10) mg/dL 193.4 H Quality:SDOH Health Related Social Needs: No Data to Display PFSH All Active Problems Passive suicidal ideations (Acute) Anxiety (Chronic) Dermatitis (Acute) Anxiety (Acute 03/15/17) Patellar instability of right knee (Chronic) Oral contraception initial prescription (Acute) Interstitial cystitis (Acute) Ganglion cyst of volar aspect of left wrist (Acute) s/p cyst excision 12/20/21 Medical History Eczema Depression Anxiety Surgical History Hx of wisdom tooth extraction Family History Mother Hyperlipidemia Mental disorder depression/anxiety OCD on disability PMS (premenstrual syndrome) ADHD (attention deficit hyperactivity disorder) Asthma Father Substance abuse Other Substance abuse Essential hypertension Heart disease Hyperlipidemia Mental disorder depression/anxiety Grandparent Substance abuse Essential hypertension Hyperlipidemia Mental disorder depression/anxiety Social History Smoking/Tobacco Use Status: Never Smoking risk assessment performed?: Yes Alcohol Intake: current Alcohol Intake frequency: holidays/special occasions only Alcohol type: beer and wine Drug use: Daily Substance use type: marijuana Details: uses it to help her sleep has not used for a few days Sexually active: Yes Do you think of yourself as: straight/heterosexual Current gender identity: female Do you feel safe at home: Yes Do you feel safe in your relationship?: Yes Female Reproductive History Menstrual Age of Menarche: 11 Duration of menses: 6-7 days control method: none and condoms History History 0 Para Hx # Term Pregnancies Multiple births Hx # Pregnancies Ectopic pregnancies AB induced Hx Number of Living Children AB spontaneous
[2024-12-14 23:15] LABS: Abs Immature Grans 0.03 10^3/uL (0.0-0.06); Absolute Basophil Count 0.07 10^3/uL (0.0-0.2); Absolute Eosinophil Count 0.06 10^3/uL (0.0-0.7); Absolute Lymphocyte Count 1.67 10^3/uL (1.2-3.4); Absolute Monocyte Count 1.01 10^3/uL (0.1-0.8); Absolute Neutrophil Count 5.01 10^3/uL (1.2-6.7); Basophils % 0.9 %; Eosinophils % 0.8 %; HCT 45.1 % (36.0-46.0); HGB 15.2 g/dL (11.2-15.7); Immature Grans % 0.4 %; Lymphocytes % 21.3 %; MCH 31.9 pg (27.0-33.0); MCHC 33.7 % (32.0-36.0); MCV 95 fL (80-95); MPV 8.9 fL (8.0-11.0); Monocytes % 12.9 %; Neutrophils % 63.7 %; Platelet Count 302 10^3/uL (130-400); RBC 4.77 10^6/uL (3.93-5.22); RDW 12.8 % (11.7-14.6); RDW-SD 44.6 fL; WBC 7.85 10^3/uL (4.4-10.8)
[2024-12-14] MEDS: LORazepam 0.5 MG TAB PO (23:18)
[2024-12-14 23:26] LABS: ETHANOL BLOOD 193.4 mg/dL (<10)
[2024-12-14 23:28] VITALS: BP 138/99; PULSE 100; RESP 16; O2SAT 98
[2024-12-14 23:31] LABS: ALT 21 U/L (14-59); AST 20 U/L (15-37); Alkaline Phosphatase 70 U/L (46-116); Anion Gap 10.6 mmol/L (3-11); BUN 13 mg/dL (7-18); Bilirubin, Total 0.24 mg/dL (0.2-1.0); CO2 26.4 mmol/L (21.0-32.0); CREATININE 0.8 mg/dL (0.55-1.02); Calcium 8.5 mg/dL (8.5-10.1); Chloride 106 mmol/L (98-107); Estimated GFR 105.45 (mL/min/1.73m2); Glucose 164 mg/dL (74-106); Potassium 3.6 mmol/L (3.5-5.1); Sodium 143 mmol/L (136-145); Total Protein 7.7 g/dL (6.4-8.2)
[2024-12-14 23:46] VITALS: PULSE 88; RESP 14; O2SAT 98
[2024-12-15] VITALS: BP 140/94; PULSE 90; RESP 14; O2SAT 98
== END 2024-12-15 | disposition home or self-care (01) ==
PROVIDERS: Emergency Provider Student in an Organized Health Care Education/Training Program; PCP Nurse Practitioner Family
DX: L30.9 Dermatitis, unspecified (principal); F41.9 Anxiety disorder, unspecified; R45.851 Suicidal ideations; Y90.6 Blood alcohol level of 120-199 mg/100 ml
CPT/HCPCS: 36415; 80053; 81025; 99283; 80320; 85025

== ENCOUNTER 2025-01-19 15:05 | Emergency (ER) | payer MEDICAID, SELFPAY ==
--- NOTE | 2025-01-19 15:15 | DI.RAD_ITS ---
Exam(s) XR HAND LT COMPLETE EXAM: XR HAND LT COMPLETE CLINICAL HISTORY: lef thand pain. TECHNIQUE: 2D digital imaging was performed. COMPARISON: No exams were available for comparison FINDINGS: 3 views There is an oblique nondisplaced fracture at the midshaft of the 5th metacarpal. No displacement nor angulation but there is overlying soft tissue swelling. There is also mild deformity of this bone w hich may indicate this having also been sided prior fracture. There is no radiopaque foreign body. No osseous lesions. IMPRESSION: Nondisplaced oblique fracture in the mid diaphysis of the 5th metacarpal. There is overlying soft ti ssue swelling. DATA REPOSITORY: RADIATION DOSE DELIVERED:
[2025-01-19 15:23] VITALS: BP 156/94; PULSE 104; RESP 20; TEMP 36.7; O2SAT 98
[2025-01-19 17:28] VITALS: BP 145/85; PULSE 100; RESP 16; O2SAT 99
--- NOTE | 2025-01-19 22:16 | W.ED.GENAD ---
Discharge Plan Disposition Patient Disposition: Home Condition: Stable Discharge Details Clinical Impression: Closed fracture of metacarpal of left hand Primary Care Provider: Salud Braga ED Provider: Shakira Dyer Home Meds and New Rx's Prescriptions: No Action loratadine [Claritin] 10 mg tablet 10 mg PO DAILY PRN (Reason: allergy symptoms) Qty: 45 2RF hydroxyzine HCl 50 mg tablet 50 mg PO QHS Qty: 14 0RF propranolol 10 mg tablet 10 mg PO DAILY Patient Comments: TAKE ONE TABLET BY MOUTH TWICE A DAY metronidazole 0.75 % cream 1 applic TOPICAL DAILY Patient Comments: APPLY A THIN LAYER TO THE AFFECTED AREA(S) TWO TIMES A DAY ( MORNING AND EVENING) mometasone 50 mcg/actuation [place],Non-Aerosol 1 spray INTRANASAL DAILY acetaminophen 500 mg tablet 500 mg PO Q6H PRN (Reason: pain) Qty: 60 2RF ibuprofen 600 mg tablet 600 mg PO TID PRN (Reason: pain) Qty: 60 0RF Discharge Instructions Instructions: Splint Care ED Additional Instructions: You have a small fracture in the bone of your left hand, you have been placed in a splint and referred to orthopedic surgery where they will follow up with you in a definitive cast on your splint cannot get wet. Take Motrin and Tylenol as needed for pain. Stand Alone Forms: Work Release Discharge Data Discharge Date/Time-TO BE ENTERED AT DEPARTURE: 01/19/25 17:29 HPI General Date/Time Provider Initiated Documentation: 01/19/25 15:26. Limitations to Documentation: no limitations. Information obtained by: patient. HPI Narrative: 24-year-old female without significant past medical history presents for evaluation of left hand pain. She has left hand dominant. She reports that yesterday she punched the floor when she was angry. She reports pain along the fourth and fifth fingers on her hand associated with bruising and swelling. Pain worse with movement. Related Data Home Medications ?Medication ?Instructions ?Recorded ?Confirmed loratadine 10 mg tablet (Claritin) 10 mg PO DAILY PRN allergy 12/25/19 01/19/25 symptoms #45 tabs mometasone 50 mcg/actuation nasal 1 spray intranasal DAILY 12/19/21 01/19/25 spray acetaminophen 500 mg tablet 500 mg PO Q6H PRN pain #60 tabs 12/20/21 01/19/25 ibuprofen 600 mg tablet 600 mg PO TID PRN pain #60 tabs 12/20/21 01/19/25 hydroxyzine HCl 50 mg tablet 50 mg PO QHS #14 tabs 06/04/22 01/19/25 metronidazole 0.75 % topical cream 1 applic topical DAILY 12/14/24 01/19/25 propranolol 10 mg tablet 10 mg PO DAILY 12/14/24 01/19/25 Previous Rx's ?Medication ?Instructions ?Recorded loratadine 10 mg tablet (Claritin) 10 mg PO DAILY PRN allergy 12/25/19 symptoms #45 tabs acetaminophen 500 mg tablet 500 mg PO Q6H PRN pain #60 tabs 12/20/21 ibuprofen 600 mg tablet 600 mg PO TID PRN pain #60 tabs 12/20/21 hydroxyzine HCl 50 mg tablet 50 mg PO QHS #14 tabs 06/04/22 Allergies Allergy/AdvReac Type Severity Reaction Status Date / Time No Known Allergies Allergy Verified 01/19/25 15:25 General Stated Complaint: Orthopedic SHRADDHA: 4 Exam Narrative Exam Narrative: Review of Systems: All systems reviewed & are unremarkable except as noted in HPI and below Well-developed, no acute distress NCAT Unlabored respiratory effort Left hand with bruising and swelling over the fourth and fifth meta carpals, there is no obvious deformity, there is significant tenderness there, no scissoring or crossover with fist, neurovascularly intact Course Vital Signs Vital signs: Vital Signs Temperature 36.7 C 01/19/25 15:23 Pulse 104 H 01/19/25 15:23 Respiratory Rate 20 01/19/25 15:23 Blood Pressure 156/94 H 01/19/25 15:23 Pulse Oximetry 98 01/19/25 15:23 Temperature 36.7 C 01/19/25 15:23 Pulse 100 H 01/19/25 17:28 Respiratory Rate 16 01/19/25 17:28 Blood Pressure 145/85 H 01/19/25 17:28 Blood Pressure Position Sitting 01/19/25 15:23 Pulse Oximetry 99 01/19/25 17:28 Oxygen Delivery Method Room Air 01/19/25 15:23 Oxygen Flow Rate 0 01/19/25 15:23 Procedure Orthopedic Splinting/Casting Side: left Upper Extremity Injury Location: hand Upper Extremity Immobilizer: ulnar gutter Weight bearing status: non-weight bearing as tolerated Procedure Description/Note: Plaster Medical Decision Making Emergent evaluation of acute traumatic left hand pain after punching the floor. Initial differential includes fracture, contusion, no evidence of dislocation or ligamentous injury. X-ray was obtained and this does demonstrate a nondisplaced fracture. The patient was placed in an ulnar gutter, splint care discussed with the patient and referred to orthopedic surgery for definitive casting and further follow-up of her hand fracture. Quality:SDOH Health Related Social Needs: No Data to Display PFSH All Active Problems Closed fracture of metacarpal of left hand (Acute) Anxiety (Acute 03/15/17) Patellar instability of right knee (Chronic) Oral contraception initial prescription (Acute) Interstitial cystitis (Acute) Ganglion cyst of volar aspect of left wrist (Acute) s/p cyst excision 12/20/21 Medical History Eczema Depression Anxiety Surgical History Hx of wisdom tooth extraction Family History Mother Hyperlipidemia Mental disorder depression/anxiety OCD on disability PMS (premenstrual syndrome) ADHD (attention deficit hyperactivity disorder) Asthma Father Substance abuse Other Substance abuse Essential hypertension Heart disease Hyperlipidemia Mental disorder depression/anxiety Grandparent Substance abuse Essential hypertension Hyperlipidemia Mental disorder depression/anxiety Social History Smoking/Tobacco Use Status: Never Smoking risk assessment performed?: Yes Alcohol Intake: current Alcohol Intake frequency: holidays/special occasions only Alcohol type: beer and wine Drug use: Daily Substance use type: marijuana Details: uses it to help her sleep has not used for a few days Sexually active: Yes Do you think of yourself as: straight/heterosexual Current gender identity: female Do you feel safe at home: Yes Do you feel safe in your relationship?: Yes Female Reproductive History Menstrual Age of Menarche: 11 Duration of menses: 6-7 days control method: none and condoms History History 0 Para Hx # Term Pregnancies Multiple births Hx # Pregnancies Ectopic pregnancies AB induced Hx Number of Living Children AB spontaneous
--- NOTE | 2025-02-01 14:54 | NUR.NOTE ---
Nursing Note: Pt in waiting room asking for cream to be dispensed- states she was here recently and misplaced it. Reviewed chart, pt seen in december for rash and given hydrocortisone cream. Pt notified that this is available over the counter, or she would need to check in as a patient to receive an assessment and medications to be dispensed if warranted. Pt states she will go to [facility] and get this OTC
== END 2025-01-19 17:29 | disposition home or self-care (01) ==
PROVIDERS: Emergency Provider Emergency Medicine; PCP Nurse Practitioner Family
DX: S62.357A Nondisplaced fracture of shaft of fifth metacarpal bone, left hand, initial encounter for closed fracture (principal); W22.09XA Striking against other stationary object, initial encounter; Y93.89 Activity, other specified; Y92.018 Other place in single-family (private) house as the place of occurrence of the external cause
CPT/HCPCS: 29125; 99283; 73130

== ENCOUNTER 2025-02-03 15:46 | Outpatient (CLI) | payer MEDICAID, SELFPAY ==
--- NOTE | 2025-02-03 11:15 | DI.RAD_ITS ---
Exam(s) XR HAND LT LIMITED EXAM: XR HAND LT LIMITED CLINICAL HISTORY: F/U FRACTURE. TECHNIQUE: 2D digital imaging was performed. Three views. COMPARISON: CR XR HAND LT COMPLETE from 01/19/2025 FINDINGS: BONES: No change in the alignment of the nondisplaced 5th metacarpal fracture. No new fractures. No bony destructive lesion is seen. JOINTS: No dislocation present. Joint spaces are maintained. SOFT TISSUE: Normal. IMPRESSION: Stable appears a 5th metacarpal fracture. DATA REPOSITORY: RADIATION DOSE DELIVERED:
== END 2025-02-03 15:47 | disposition home or self-care (01) ==
LOC: DIORS 15:47
PROVIDERS: PCP Nurse Practitioner Family; Visit Provider Student in an Organized Health Care Education/Training Program
DX: S62.307D Unspecified fracture of fifth metacarpal bone, left hand, subsequent encounter for fracture with routine healing (principal); X58.XXXD Exposure to other specified factors, subsequent encounter
CPT/HCPCS: 73120

== ENCOUNTER 2025-02-18 10:54 | Outpatient (REF) | payer MEDICAID, SELFPAY ==
[2025-02-18 14:32] LABS: HCT 44.4 % (36.0-46.0); HGB 14.9 g/dL (11.2-15.7); MCH 31.7 pg (27.0-33.0); MCHC 33.6 % (32.0-36.0); MCV 95 fL (80-95); MPV 10.7 fL (8.0-11.0); Platelet Count 296 10^3/uL (130-400); RDW 12.8 % (11.7-14.6); RDW-SD 44.6 fL; WBC 9.36 10^3/uL (4.4-10.8)
[2025-02-18 16:29] LABS: ALT 22 U/L (14-59); AST 23 U/L (15-37); Albumin 4.5 g/dL (3.4-5.0); Alkaline Phosphatase 69 U/L (46-116); Anion Gap 16.8 mmol/L (3-11); BUN 17 mg/dL (7-18); Bilirubin, Total 1.3 mg/dL (0.2-1.0); CO2 22.2 mmol/L (21.0-32.0); CREATININE 0.9 mg/dL (0.55-1.02); Calcium 9.6 mg/dL (8.5-10.1); Chloride 102 mmol/L (98-107); Estimated GFR 91.55 (mL/min/1.73m2); Glucose 71 mg/dL (74-106); Potassium 4.2 mmol/L (3.5-5.1); Sodium 141 mmol/L (136-145); Total Protein 7.7 g/dL (6.4-8.2)
== END 2025-02-18 10:55 | disposition home or self-care (01) ==
LOC: NCHCN 10:54
PROVIDERS: PCP Nurse Practitioner Family; Visit Provider Nurse Practitioner Family
DX: F10.20 Alcohol dependence, uncomplicated (principal)
CPT/HCPCS: 80053; 85027

== ENCOUNTER 2025-02-20 17:59 | Emergency (ER) | payer MEDICAID, SELFPAY ==
[2025-02-20] VITALS (47 sets, daily range): BP systolic 106–175; BP diastolic 56–130; PULSE 46–123; RESP 11–28; TEMP 36.9; O2SAT 98–100
--- NOTE | 2025-02-20 18:46 | PDOC.MHCN_ITS ---
Date of service: 02/20/25 Time of Service: 17:00 PHQ-9 Over the last 2 weeks, how often have you been bothered by any of the following problems? 1. Little interest or pleasure in doing things: nearly every day 2. Feeling down, depressed, or hopeless: nearly every day 3. Trouble falling or staying asleep, or sleeping too much: nearly every day 4. Feeling tired or having little energy: nearly every day 5. Poor appetite or overeating: nearly every day 6. Feeling bad about yourself - or that you are a failure or have let yourself and your family down: nearly every day 7. Trouble concentrating on things, such as reading the newspaper or watching television: nearly every day 8. Moving or speaking so slowly that other people could have noticed? - Or the opposite - being so fidgety or restless that you have been moving around a lot more than usual: nearly every day 9. Thoughts that you would be better off or of hurting yourself in some way: nearly every day Total score: 27 If you checked off any problems, how difficult have these problems made it for you to do your work, take care of things at home, or get along with other people?: extremely difficult PHQ-9 Results: Positive Source: Developed by Drs. Franco Mcpherson, Archana Gao, Reese Pierson and colleagues, with an educational rafita from [employer]. Suicide Severity Rate CSSRS Have you wished you were or wished you could go to sleep and not wake up?: Yes Have you actually had any thoughts of killing yourself?: Yes CSSRS2 Have you been thinking about how you might do this?: Yes Have you had these thoughts and had some intention of acting on them?: Yes Have you started to work out or worked out the details of how to kill yourself? Do you intend to carry out this plan?: Yes CSSRS3 Have you ever done anything, started to do anything or prepared to do anything to end your life?: Yes CSSRS4 Was this within the past three months?: Yes Screening Score Total Score: 8 Screening: Positive Mental Health Emergency Note Release [facility] release signed:: Yes Reason for Visit Client stating she wants to everyday. In the last 2 weeks has the pt presented for ES prior to today?: No Client Information Client is: Adult Outpatient and Substance use Well Housed: Yes Non Suicidal Self Injury Current: Yes, The client has attempted to drink herself to and laid on the train tracks with the intention of being run over. History: yes, See Current. Safety Risk/Harm to Self or Others Current Ideation to Harm Self or Others: Yes to self. Intent: yes, has intent. Plan: yes,has a plan. Risk: Does risk to harm exist?: yes. Risk: Moderate Risk Duty to warn indicated: Yes Asssessment/Mental Status Appearance: Disheveled Attitude: Cooperative Behavior: Poor impulse control Speech: Hesitant Affect: Incongurent with mood Mood: Elevated, Sad, Stressed, Depressed, Anxious and Angry Thought process: Circumstational and Poverty of content Hallucinations: No Delusions: No Attention: Unremarkable Perception: Not impaired Orientation: Fully orientated Memory: Intact Insight: Poor Judgement: Poor Neurovegetative Symptoms Sleep: Decrease Appetitie: Disordered Interests: Decrease Energy: Decrease Substance Use: Intoxication Drug Issues: Dependence Do you use nicotine?: Yes Have you used substances in the last 7 days?: yes, The client plans on drinking herself to frequently. Additional Issues: Assaultive/Threatening Behavior: No Medical Concerns: No Client engaged in active self harm w/weapon: No Threatening to run away: No Child reported abuse/neglect: No Voluntarily presenting for services: Yes Domestic violence is a concern: No Extreme Psychosis or extreme behavior is present: No Impression The client is a 24-year-old , female who is currently living with her mother, tough she has stated they frequently fight and her mother calls the police on her. The client is currently unemployed due to her inability to function. She uses She/Her pronouns. She completed high school and is currently employed as a auto glass technician. All underrepresented identifiers were honored during this assessment. The client presents as a petite female with long casey blonde hair. She is dressed appropriately for the weather and her boyfriend is with her for comfort and support. She makes good eye contact and is cooperative through the assessment. She reported poor appetite and poor sleep unless she uses ETOH. The client identified her natural supports as no one. She denied professional supports. The client identified her strengths as sewing, painting, gardening, cleaning and anything with small details. The client reported a family history of mental illness and substance abuse. She denied a family history of legal issues and suicide. The client stated multiple times that she wants to go to bed and not wake up and even often drinks in the hopes of accomplishing that. The client's boyfriend, Yao, supported this clinicians assessment and in telling the client that she needs to go inpatient. The client claims that she hasn't had any alcohol in three days and she just had a bad morning and couldn't go to work, but that she is now feeling better. The client shared that she only wanted support and help through her tough morning, but when this clinician brought up the clients screening tools, she started crying claiming that she only said everything to the extreme because she thought she would get more help. The client stated that she was 5/10, but had repeatedly shared her desire to not exists and . This process description writer made it clear to the client that if she didn't go voluntarily, ES may have to write a warrant after tis clinician spoke with her ES supervisor forming department Juan Miguel. The client went by way of her boyfriend to the ED with EVELIO Hill following behind her. Resources Reosurces reviewed and given:: [facility], [facility] and [facility] Plan/Disposition Recommended Disposition: Hospitalization facilities contacted. Plan: This client talked about drinking until she dies. Person reported agreement to plan: Yes Facilities contacted if Applicable [facility] Not accepted, Other [facility] Not accepted, Other, [facility] Not accepted, Other [facility] Not accepted, Other Reports/communication Outcome discussed with: ED/Personnel
[2025-02-20 18:52] LABS: *AMPHETAMINES SCREEN URINE Negative (Negative); *BARBITURATES SCREEN URINE Negative (Negative); *BENZODIAZEPINES SCREEN URINE Positive (Negative); Cannabinoids THC Positive (Negative); Cocaine Screen,Urine Negative (Negative); METHADONE URINE SCREEN Negative (Negative); OPIATES URINE SCREEN Negative (Negative)
[2025-02-20 18:55] LABS: Tricyclic Antidepressants Negative (Negative)
[2025-02-20 19:24] LABS: Abs Immature Grans 0.03 10^3/uL (0.0-0.06); Absolute Basophil Count 0.09 10^3/uL (0.0-0.2); Absolute Eosinophil Count 0.09 10^3/uL (0.0-0.7); Absolute Lymphocyte Count 1.75 10^3/uL (1.2-3.4); Absolute Monocyte Count 1.12 10^3/uL (0.1-0.8); Absolute Neutrophil Count 5.64 10^3/uL (1.2-6.7); HCT 44.3 % (36.0-46.0); HGB 14.5 g/dL (11.2-15.7); Immature Grans % 0.3 %; Lymphocytes % 20.1 %; MCH 31.3 pg (27.0-33.0); MCHC 32.7 % (32.0-36.0); MCV 96 fL (80-95); MPV 9.5 fL (8.0-11.0); Monocytes % 12.8 %; Neutrophils % 64.8 %; Platelet Count 296 10^3/uL (130-400); RBC 4.63 10^6/uL (3.93-5.22); RDW 12.8 % (11.7-14.6); RDW-SD 45.4 fL; WBC 8.72 10^3/uL (4.4-10.8)
[2025-02-20] MEDS: chlordiazePOXIDE 25 MG CAP 50 MG PO ×2 (19:29→19:40)
[2025-02-20 19:48] LABS: ALT 19 U/L (14-59); AST 15 U/L (15-37); Albumin 4.1 g/dL (3.4-5.0); Alkaline Phosphatase 60 U/L (46-116); Anion Gap 9.1 mmol/L (3-11); BUN 11 mg/dL (7-18); Bilirubin, Total 0.3 mg/dL (0.2-1.0); CO2 27.9 mmol/L (21.0-32.0); CREATININE 0.8 mg/dL (0.55-1.02); Calcium 9.2 mg/dL (8.5-10.1); Chloride 106 mmol/L (98-107); Estimated GFR 105.45 (mL/min/1.73m2); Glucose 84 mg/dL (74-106); Potassium 4.1 mmol/L (3.5-5.1); Sodium 143 mmol/L (136-145); Total Protein 7.6 g/dL (6.4-8.2)
[2025-02-20 19:49] LABS: ETHANOL BLOOD < 3.0 mg/dL (<10)
[2025-02-20 19:59] LABS: Salicylate < 2.8 mg/dL (<2.8)
--- NOTE | 2025-02-20 20:05 | W.ED.GENAD ---
Discharge Plan Disposition Patient Disposition: Transfer-Acute Inpatient Care Specific Acute Inpt Facility: Other Condition: Stable Discharge Details Chief Complaint: PsychEval Clinical Impression: Chronic alcohol abuse, Fracture of fifth metacarpal bone of left hand, Depression with suicidal ideation Primary Care Provider: Salud Braga ED Provider: Shakira Dyer Home Meds and New Rx's Prescriptions: No Action loratadine [Claritin] 10 mg tablet 10 mg PO DAILY PRN (Reason: allergy symptoms) Qty: 45 2RF hydroxyzine HCl 50 mg tablet 50 mg PO QHS Qty: 14 0RF propranolol 10 mg tablet 10 mg PO DAILY Patient Comments: TAKE ONE TABLET BY MOUTH TWICE A DAY metronidazole 0.75 % cream 1 applic TOPICAL DAILY Patient Comments: APPLY A THIN LAYER TO THE AFFECTED AREA(S) TWO TIMES A DAY ( MORNING AND EVENING) diazepam 5 mg tablet Patient Comments: TAKE ONE TABLET BY MOUTH EVERY 8 HOURS FOR 1 DAY; THEN TAKE EVERY 12 HOURS ON DAY 2 AND 3; THEN ONCE AT NIGHT ON DAY 4 mometasone 50 mcg/actuation [place],Non-Aerosol 1 spray INTRANASAL DAILY acetaminophen 500 mg tablet 500 mg PO Q6H PRN (Reason: pain) Qty: 60 2RF ibuprofen 600 mg tablet 600 mg PO TID PRN (Reason: pain) Qty: 60 0RF HPI General Date/Time Provider Initiated Documentation: 02/20/25 18:20. Limitations to Documentation: no limitations. Information obtained by: patient. HPI Narrative: 24-year-old female with past medical history of daily alcohol abuse presents for evaluation of increasing depression and suicidal ideation. Patient reports that she has been drinking heavily and daily for the last 2 years. The patient reports that her last drink was 4 days ago. She states that at that time her mom noted that she was drinking and reported this to the police. She is legally not supposed to be drinking so she got a citation for violation of her conditions of release. She reports that this incident increased her suicidal ideation. Related Data Home Medications ?Medication ?Instructions ?Recorded ?Confirmed loratadine 10 mg tablet (Claritin) 10 mg PO DAILY PRN allergy 12/25/19 02/20/25 symptoms #45 tabs mometasone 50 mcg/actuation nasal 1 spray intranasal DAILY 12/19/21 02/20/25 spray acetaminophen 500 mg tablet 500 mg PO Q6H PRN pain #60 tabs 12/20/21 02/20/25 ibuprofen 600 mg tablet 600 mg PO TID PRN pain #60 tabs 12/20/21 02/20/25 hydroxyzine HCl 50 mg tablet 50 mg PO QHS #14 tabs 06/04/22 02/20/25 metronidazole 0.75 % topical cream 1 applic topical DAILY 12/14/24 02/20/25 propranolol 10 mg tablet 10 mg PO DAILY 12/14/24 02/20/25 diazepam 5 mg tablet mg 02/20/25 Previous Rx's ?Medication ?Instructions ?Recorded loratadine 10 mg tablet (Claritin) 10 mg PO DAILY PRN allergy 12/25/19 symptoms #45 tabs acetaminophen 500 mg tablet 500 mg PO Q6H PRN pain #60 tabs 12/20/21 ibuprofen 600 mg tablet 600 mg PO TID PRN pain #60 tabs 12/20/21 hydroxyzine HCl 50 mg tablet 50 mg PO QHS #14 tabs 06/04/22 Allergies Allergy/AdvReac Type Severity Reaction Status Date / Time No Known Allergies Allergy Verified 02/20/25 18:07 General Stated Complaint: PsychEval SHRADDHA: 2 Exam Narrative Exam Narrative: Review of Systems: All systems reviewed & are unremarkable except as noted in HPI and below Well-developed, no acute distress NCAT No nystagmus Initial slight tachycardia has improved Unlabored respiratory effort Left hand in ulnar gutter brace No tremor Flat affect suicidal Course Vital Signs Vital signs: Vital Signs Temperature 36.9 C 02/20/25 18:01 Pulse 123 H 02/20/25 18:01 Respiratory Rate 18 02/20/25 18:01 Blood Pressure 167/130 H 02/20/25 18:01 Pulse Oximetry 99 02/20/25 18:01 Temperature 36.9 C 02/20/25 18:01 Temperature Source Oral 02/20/25 18:01 Pulse 78 02/20/25 19:30 Respiratory Rate 18 02/20/25 18:01 Respiratory Pattern Normal 02/20/25 19:31 Blood Pressure 167/130 H 02/20/25 18:01 Pulse Oximetry 100 02/20/25 19:30 Oxygen Delivery Method Room Air 02/20/25 18:01 Oxygen Flow Rate 0 02/20/25 18:01 Pain Level 0 02/20/25 18:01 Lab/Test Results Lab/Test Results: Laboratory Tests Range/Units 02/20/25 02/20/25 18:15 19:10 WBC (4.4-10.8) 10^3/uL 8.72 RBC (3.93-5.22) 10^6/uL 4.63 Hgb (11.2-15.7) g/dL 14.5 Hct (36.0-46.0) % 44.3 MCV (80-95) fL 96 H MCH (27.0-33.0) pg 31.3 MCHC (32.0-36.0) % 32.7 RDW (11.7-14.6) % 12.8 Plt Count (130-400) 10^3/uL 296 MPV (8.0-11.0) fL 9.5 Immature Gran % % 0.3 Neutrophils % % 64.8 Lymphocytes % % 20.1 Monocytes % % 12.8 Eosinophils % % 1.0 Basophils % % 1.0 Nucleated RBC % (0.0-0.3) % 0.0 Absolute Neutrophils (1.2-6.7) 10^3/uL 5.64 Absolute Lymphocytes (1.2-3.4) 10^3/uL 1.75 Absolute Monocytes (0.1-0.8) 10^3/uL 1.12 H Absolute Eosinophils (0.0-0.7) 10^3/uL 0.09 Absolute Basophils (0.0-0.2) 10^3/uL 0.09 Sodium (136-145) mmol/L 143 Potassium (3.5-5.1) mmol/L 4.1 Chloride (98-107) mmol/L 106 Carbon Dioxide (21.0-32.0) mmol/L 27.9 Anion Gap (3-11) mmol/L 9.1 BUN (7-18) mg/dL 11 Creatinine (0.55-1.02) mg/dL 0.8 Est GFR (CKD-EPI 2020) (mL/min/1.73m2) 105.45 Glucose (74-106) mg/dL 84 Calcium (8.5-10.1) mg/dL 9.2 Total Bilirubin (0.2-1.0) mg/dL 0.3 AST (15-37) U/L 15 ALT (14-59) U/L 19 Alkaline Phosphatase (46-116) U/L 60 Total Protein (6.4-8.2) g/dL 7.6 Albumin (3.4-5.0) g/dL 4.1 Urine Opiates Screen (Negative) Negative Urine Methadone Screen (Negative) Negative Ur Barbiturates Screen (Negative) Negative Ur Tricyclics Screen (Negative) Negative Ur Amphetamines Screen (Negative) Negative U Benzodiazepines Scrn (Negative) Positive A Urine Cocaine Screen (Negative) Negative Ur THC Screen (Negative) Positive A Ethyl Alcohol (<10) mg/dL < 3.0 POC Urine Test Start: 02/20/25 18:18 Freq: Status: Complete Protocol: Document 02/20/25 18:18 CT (Rec: 02/20/25 18:19 CT [id number]) Test(Urine)-POC POC- Test(urine) Negative POC- Test(urine) Negative Medical Decision Making Emergent evaluation of suicidal ideation. The patient does not have a specific plan, but has been having increased suicidal ideation. She sought help today with [facility] and was referred to the emergency department for voluntary inpatient psychiatric stay. The patient does endorse a history of chronic alcohol abuse but reports that her last drink was several days ago. She is noted to have some mild hyper tension and tachycardia though she does not demonstrate any other signs of acute alcohol withdrawal. She had normalized vital signs after she sat in the emergency department for a bit. I will monitor her for alcohol withdrawal symptoms closely with recurrent CIWA checks. And start her Librium. Lab work was obtained. There is no leukocytosis or anemia. No electrolyte derangement. LFTs are within normal limits. She is not . Her U tox is positive for benzos and THC. She has been using benzos this week for prevention of alcohol withdrawal. The patient at this time is medically cleared for voluntary inpatient psychiatric placement. Quality:[facility] Health Related Social Needs: No Data to Display PFSH All Active Problems Depression with suicidal ideation (Acute) Chronic alcohol abuse (Acute) Fracture of fifth metacarpal bone of left hand (Acute ~01/19/25) Anxiety (Acute 03/15/17) Patellar instability of right knee (Chronic) Oral contraception initial prescription (Acute) Interstitial cystitis (Acute) Ganglion cyst of volar aspect of left wrist (Acute) s/p cyst excision 12/20/21 Medical History Eczema Depression Anxiety Surgical History Hx of wisdom tooth extraction Family History Mother Hyperlipidemia Mental disorder depression/anxiety OCD on disability PMS (premenstrual syndrome) ADHD (attention deficit hyperactivity disorder) Asthma Father Substance abuse Other Substance abuse Essential hypertension Heart disease Hyperlipidemia Mental disorder depression/anxiety Grandparent Substance abuse Essential hypertension Hyperlipidemia Mental disorder depression/anxiety Social History Smoking/Tobacco Use Status: Current every day Smoking risk assessment performed?: Yes Alcohol Intake: current Alcohol Intake frequency: 3 or more drinks per day Alcohol type: wine Drug use: Daily Substance use type: marijuana Details: uses it to help her sleep has not used for a few days Sexually active: Yes Do you think of yourself as: straight/heterosexual Current gender identity: female Do you feel safe at home: Yes Do you feel safe in your relationship?: Yes Female Reproductive History Menstrual Age of Menarche: 11 Duration of menses: 6-7 days control method: none and condoms History History 0 Para Hx # Term Pregnancies Multiple births Hx # Pregnancies Ectopic pregnancies AB induced Hx Number of Living Children AB spontaneous PAWSS Have you Been Recently Intoxicated or Drunk Within the Last 30 days?: Yes Have you Ever Experienced Previous Episodes of Alcohol Withdrawal?: Yes Have you ever Experienced Withdrawal Seizures?: No Have you ever Experienced Delirium Tremens(DT)s?: Yes Have you ever undergone Alcohol Rehabilitation Treatment (i.e, inpt ot outpatient treatment programs)?: No Have you ever Experienced Blackouts?: Yes Have you ever Combined Alcohol with other Downers within the last 90 days?: Yes Have you ever Combined Alcohol with any other Substance of Abuse during the last 90 days?: No Positive Blood Alcohol level on Presentation? [PCS.BAL]: Unable to Obtain Evidence of Increased Autonomic Activity (i.e. HR>120, tremor, sweating, agitation, nausea)?: No Result: 4
[2025-02-20 20:10] LABS: Acetaminophen < 2 ug/mL (10-30)
[2025-02-21] VITALS (60 sets, daily range): BP systolic 96–152; BP diastolic 46–131; PULSE 42–102; RESP 8–25; TEMP 36.9; O2SAT 94–100
--- NOTE | 2025-02-21 06:32 | ED.PROG_ITS ---
Date of service: 02/21/25 Time of Service: 06:32 Medical Decision Making Patient presented to ED with depression, SI, alcohol use disorder. She has been medically cleared. She has been maintained on Librium 3 times daily. She is voluntary at this time. No issues on the overnight shift. Discharge Plan Disposition Patient Disposition: Transfer-Acute Inpatient Care Specific Acute Inpt Facility: Other Condition: Stable Discharge Details Clinical Impression: Chronic alcohol abuse, Fracture of fifth metacarpal bone of left hand, Depression with suicidal ideation Primary Care Provider: Salud Braga ED Provider: Franco Briceño [place] Meds and New Rx's Prescriptions: No Action loratadine [Claritin] 10 mg tablet 10 mg PO DAILY PRN (Reason: allergy symptoms) Qty: 45 2RF hydroxyzine HCl 50 mg tablet 50 mg PO QHS Qty: 14 0RF propranolol 10 mg tablet 10 mg PO DAILY Patient Comments: TAKE ONE TABLET BY MOUTH TWICE A DAY metronidazole 0.75 % cream 1 applic TOPICAL DAILY Patient Comments: APPLY A THIN LAYER TO THE AFFECTED AREA(S) TWO TIMES A DAY ( MORNING AND EVENING) diazepam 5 mg tablet Patient Comments: TAKE ONE TABLET BY MOUTH EVERY 8 HOURS FOR 1 DAY; THEN TAKE EVERY 12 HOURS ON DAY 2 AND 3; THEN ONCE AT NIGHT ON DAY 4 mometasone 50 mcg/actuation [place],Non-Aerosol 1 spray INTRANASAL DAILY acetaminophen 500 mg tablet 500 mg PO Q6H PRN (Reason: pain) Qty: 60 2RF ibuprofen 600 mg tablet 600 mg PO TID PRN (Reason: pain) Qty: 60 0RF
[2025-02-21] MEDS: chlordiazePOXIDE 25 MG CAP 50 MG PO ×3 (08:42→20:36)
--- NOTE | 2025-02-21 09:29 | CMSP_ITS ---
Date of service: 02/21/25 Time of Service: 09:29 Care Management Safety Plan Status Status: Voluntary Reason for Wait Reason for Wait: Inpatient Admission Safety Plan Safety Plan: VOLUNTARY FOR INPATIENT PSYCHIATRIC STABILIZATION.? Patient is appropriate in all interactions since arriving at [facility]; Pt has demonstrated appropriate coping and communication skills, has articulated his or her needs and concerns and is fully engaged during staff interactions. Safety plan has been established with patient, and care team, to adhere to patient goals, identify restrictions based on behavioral status, address nutrition, and determine allowed personal belongings, tools for hygiene and personal care. Determine level of activity including ambulation, level of supervision, visitors, and determine privileges based on behaviors and level of engagement by pt. SAFETY PLAN: 1. Will remain on suicide precautions, in paper clothes 2. Will remain in room under direct supervision of one-on-one staff at all times provided by [employer]; PAULA, SQL SSRS DEVELOPER director orange. 3. May have paper cups, plates, finger foods as well as a cardboard spoon with which to eat meals. 4. Follow [facility] Management of the Admitted Behavioral Health Patient policy. 5. Comfort bath system, shower permitted with escort at RN discretion. 6. Personal belongings-soft items permitted at RN discretion. 7. Visitors-none at this time. 8. Activities: soft cart items approved per RN discretion. 9.? Bathroom privileges with escort in the ED. 10. Phone: limited to cordless phone at RN discretion. Due to VOLUNTARY status, if patient wishes to leave [facility], staff will contact [facility] Crisis Screener ([phone]) and On-Call School Administrator ([phone]) as soon as possible. In the event of elopement, notify [facility] Police ([phone]). Patient is currently voluntarily at [facility] and seeking inpatient admission when a bed becomes available. [facility] Frontline Demand Generation Manager will continue seeking placement. Please contact the Event Coordinator School Administrator ([phone]) and [facility] Demand Generation Manager ([phone]) for any needed changes in the Safety Plan. Safety plan has been provided to interdepartmental care team.
[2025-02-21] MEDS: Nicotine 2 MG GUM CH ×3 (10:26→19:44)
--- NOTE | 2025-02-21 14:24 | CMSP_ITS ---
Date of service: 02/21/25 Time of Service: 14:25 Care Management Safety Plan Status Status: Voluntary Reason for Wait Reason for Wait: Inpatient Admission Safety Plan Safety Plan: VOLUNTARY FOR INPATIENT PSYCHIATRIC STABILIZATION.? Patient is appropriate in all interactions since arriving at [facility]; Pt has demonstrated appropriate coping and communication skills, has articulated his or her needs and concerns and is fully engaged during staff interactions. Safety plan has been established with patient, and care team, to adhere to patient goals, identify restrictions based on behavioral status, address nutrition, and determine allowed personal belongings, tools for hygiene and personal care. Determine level of activity including ambulation, level of superv ision, visitors, and determine privileges based on behaviors and level of engagement by pt. VOLUNTARY SAFETY PLAN: 1. Will remain on suicide precautions, in paper clothes 2. Will remain in Zone B under direct supervision of one-on-one staff at all times provided by [employer]; PAULA, INTERNATIONAL TRAVEL CONSULTANT sales order administrator. 3. May have paper cups, plates, finger foods as well as a cardboard spoon with which to eat meals. 4. Follow [facility] Management of the Admitted Behavioral Health Patient policy. 5. Shower available in Zone B without restriction. 6. Personal belongings-soft items permitted at RN discretion. 7. Visitors-none at this time. Lynda may visit with her friend, Yao. Her mother may not visit. 8. Activities: soft cart items, hospital tablets (Netflix/Jaylen+/music) approved per RN discretion. 9.? Bathroom available in Zone B without restriction. 10. Phone: limited to [facility] cordless phone at RN discretion. Lynda should not speak with her mother. Due to VOLUNTARY status, if patient wishes to leave [facility], staff will contact [facility] Crisis Screener ([phone]) and Property Man ([phone]) as soon as possible. In the event of elopement, notify [place] Police ([phone]). Patient is currently voluntarily at [facility] and seeking inpatient admission when a bed becomes available. [facility] Frontline Treatment Coordinator will continue seeking placement. Please contact the Property Man ([phone]) and [facility] Treatment Coordinator ([phone]) for any needed changes in the Safety Plan. Safety plan has been provided to interdepartmental care team.
--- NOTE | 2025-02-21 14:54 | ED.PROG_ITS ---
Date of service: 02/21/25 Time of Service: 14:54 Medical Decision Making Patient stable throughout the shift. She did request Nicorette for NicoDerm. She was given NicoDerm gum, scheduled dosing was ordered. Currently pending placement. Voluntary. Quality:[facility] Health Related Social Needs: No Data to Display Discharge Plan Disposition Patient Disposition: Transfer-Acute Inpatient Care Specific Acute Inpt Facility: Other Condition: Stable Discharge Details Clinical Impression: Chronic alcohol abuse, Fracture of fifth metacarpal bone of left hand, Depression with suicidal ideation Primary Care Provider: Salud Braga ED Provider: Roosevelt Marcelo Home Meds and New Rx's Prescriptions: No Action loratadine [Claritin] 10 mg tablet 10 mg PO DAILY PRN (Reason: allergy symptoms) Qty: 45 2RF hydroxyzine HCl 50 mg tablet 50 mg PO QHS Qty: 14 0RF propranolol 10 mg tablet 10 mg PO DAILY Patient Comments: TAKE ONE TABLET BY MOUTH TWICE A DAY metronidazole 0.75 % cream 1 applic TOPICAL DAILY Patient Comments: APPLY A THIN LAYER TO THE AFFECTED AREA(S) TWO TIMES A DAY ( MORNING AND EVENING) diazepam 5 mg tablet Patient Comments: TAKE ONE TABLET BY MOUTH EVERY 8 HOURS FOR 1 DAY; THEN TAKE EVERY 12 HOURS ON DAY 2 AND 3; THEN ONCE AT NIGHT ON DAY 4 mometasone 50 mcg/actuation [place],Non-Aerosol 1 spray INTRANASAL DAILY acetaminophen 500 mg tablet 500 mg PO Q6H PRN (Reason: pain) Qty: 60 2RF ibuprofen 600 mg tablet 600 mg PO TID PRN (Reason: pain) Qty: 60 0RF
--- NOTE | 2025-02-21 22:29 | W.EDPROG ---
Date of service: 02/21/25 Time of Service: 22:29 Medical Decision Making I, Tk Partida, took signout on this patient. In summary 24-year-old female Presents with depression and suicidal ideation. Has alcohol use disorder. On Librium 3 times a day for possible alcohol withdrawal. Reevaluated by [facility] today and remains a voluntary bed search. Given 1 extra dose of Valium by Dr. Marcelo for withdrawal type symptoms but resting comfortably throughout my shift with no other acute events. Signed out to the oncoming team pending voluntary psychiatric bed search. Medical Records Medical records reviewed: Yes I reviewed the patient's medical records. Lab Data Lab results reviewed: Yes I reviewed the patient's lab results. Quality:SDOH Health Related Social Needs: No Data to Display Discharge Plan Disposition Patient Disposition: Transfer-Acute Inpatient Care Specific Acute Inpt Facility: Other Condition: Stable Discharge Details Clinical Impression: Chronic alcohol abuse, Fracture of fifth metacarpal bone of left hand, Depression with suicidal ideation Primary Care Provider: Salud Braga ED Provider: Tk Partida Home Meds and New Rx's Prescriptions: No Action loratadine [Claritin] 10 mg tablet 10 mg PO DAILY PRN (Reason: allergy symptoms) Qty: 45 2RF hydroxyzine HCl 50 mg tablet 50 mg PO QHS Qty: 14 0RF propranolol 10 mg tablet 10 mg PO DAILY Patient Comments: TAKE ONE TABLET BY MOUTH TWICE A DAY metronidazole 0.75 % cream 1 applic TOPICAL DAILY Patient Comments: APPLY A THIN LAYER TO THE AFFECTED AREA(S) TWO TIMES A DAY ( MORNING AND EVENING) diazepam 5 mg tablet Patient Comments: TAKE ONE TABLET BY MOUTH EVERY 8 HOURS FOR 1 DAY; THEN TAKE EVERY 12 HOURS ON DAY 2 AND 3; THEN ONCE AT NIGHT ON DAY 4 mometasone 50 mcg/actuation [place],Non-Aerosol 1 spray INTRANASAL DAILY acetaminophen 500 mg tablet 500 mg PO Q6H PRN (Reason: pain) Qty: 60 2RF ibuprofen 600 mg tablet 600 mg PO TID PRN (Reason: pain) Qty: 60 0RF
--- NOTE | 2025-02-21 22:47 | MHPN_ITS ---
Date of service: 02/21/25 Time of Service: 15:15 Mental Health Emergency Note Release [facility] release signed:: Yes Reason for Visit Client is seeking inpatient treatment due to mental health struggles. In the last 2 weeks has the pt presented for ES prior to today?: Yes, presented at Client Information Client is: Adult Outpatient and Substance use Well Housed: Yes Non Suicidal Self Injury Current: No History: yes, Client has spoken about drinking herself to , and laid on traintracks wanting to be run over. Safety Risk/Harm to Self or Others Current Ideation to Harm Self or Others: No Risk: Does risk to harm exist?: yes. Risk: Moderate Risk Duty to warn indicated: No Asssessment/Mental Status Appearance: Unremarkable Attitude: Cooperative and Friendly Behavior: Unremarkable Speech: Normal and Soft Affect: Normal Mood: Sad, Stressed, Depressed and Anxious Thought process: Unremarkable Hallucinations: No evidence Delusions: No evidence Attention: Unremarkable Perception: Not impaired Orientation: Fully orientated Memory: Intact Insight: Fair Judgement: Fair Neurovegetative Symptoms Sleep: Decrease Appetitie: Decrease Interests: Decrease Energy: Decrease Substance Use: Do you use nicotine?: Yes Have you used substances in the last 7 days?: yes, Client partakes in self harming behavior regularly by hitting herself when she is upset. Additional Issues: Assaultive/Threatening Behavior: No Medical Concerns: No Client engaged in active self harm w/weapon: No Threatening to run away: No Child reported abuse/neglect: No Voluntarily presenting for services: Yes Domestic violence is a concern: No Extreme Psychosis or extreme behavior is present: No Impression It was reported to this health technical writer that the client had been crying in the bathroom for about an hour that morning. This health technical writer went into bed 3, where the client was laying cross leged bent over in blue paper scrubs. This health technical writer talked to the client about concerns around her mother visiting, but as long as her mother didn't disturb her, she was welcome to call. This health technical writer let the client know that her boyfriend, Yao was welcome to visit and call. The client shared that she was struggling with her anxiety and sleep along with having severe nicotine withdrawals and asked this health technical writer to talk with her provider about these concerns. The client is staying voluntarily. Plan/Disposition Recommended Disposition: Hospitalization facilities contacted. Plan: The client is staying in Zone B until placed in an inpatient facility. Person reported agreement to plan: Yes Reports/communication Outcome discussed with: ED/Personnel
--- NOTE | 2025-02-22 06:34 | W.EDPROG ---
Date of service: 02/22/25 Time of Service: 06:34 Medical Decision Making Patient remains in the ED pending voluntary inpatient admission for depression. She is on Librium on a scheduled basis for alcohol dependence. No issues on the overnight shift. Quality:SDOH Health Related Social Needs: No Data to Display Discharge Plan Disposition Patient Disposition: Transfer-Acute Inpatient Care Specific Acute Inpt Facility: Other Condition: Stable Discharge Details Clinical Impression: Chronic alcohol abuse, Fracture of fifth metacarpal bone of left hand, Depression with suicidal ideation Primary Care Provider: Salud Braga ED Provider: Franco Briceño [place] Meds and New Rx's Prescriptions: No Action loratadine [Claritin] 10 mg tablet 10 mg PO DAILY PRN (Reason: allergy symptoms) Qty: 45 2RF hydroxyzine HCl 50 mg tablet 50 mg PO QHS Qty: 14 0RF propranolol 10 mg tablet 10 mg PO DAILY Patient Comments: TAKE ONE TABLET BY MOUTH TWICE A DAY metronidazole 0.75 % cream 1 applic TOPICAL DAILY Patient Comments: APPLY A THIN LAYER TO THE AFFECTED AREA(S) TWO TIMES A DAY ( MORNING AND EVENING) diazepam 5 mg tablet Patient Comments: TAKE ONE TABLET BY MOUTH EVERY 8 HOURS FOR 1 DAY; THEN TAKE EVERY 12 HOURS ON DAY 2 AND 3; THEN ONCE AT NIGHT ON DAY 4 mometasone 50 mcg/actuation [place],Non-Aerosol 1 spray INTRANASAL DAILY acetaminophen 500 mg tablet 500 mg PO Q6H PRN (Reason: pain) Qty: 60 2RF ibuprofen 600 mg tablet 600 mg PO TID PRN (Reason: pain) Qty: 60 0RF
--- NOTE | 2025-02-22 07:16 | W.EDPROG ---
Date of service: 02/22/25 Time of Service: 07:16 Medical Decision Making Patient seeking voluntary placement for thoughts of self-harm, no reported issues on prior shift and currently, cooperative without new acute complaints. Will continue to monitor until safe disposition found. Quality:SDOH Health Related Social Needs: No Data to Display Discharge Plan Disposition Patient Disposition: Transfer-Acute Inpatient Care Specific Acute Inpt Facility: Other Condition: Stable Discharge Details Clinical Impression: Chronic alcohol abuse, Fracture of fifth metacarpal bone of left hand, Depression with suicidal ideation Primary Care Provider: Salud Braga ED Provider: Alberto Partida Home Meds and New Rx's Prescriptions: No Action loratadine [Claritin] 10 mg tablet 10 mg PO DAILY PRN (Reason: allergy symptoms) Qty: 45 2RF hydroxyzine HCl 50 mg tablet 50 mg PO QHS Qty: 14 0RF propranolol 10 mg tablet 10 mg PO DAILY Patient Comments: TAKE ONE TABLET BY MOUTH TWICE A DAY metronidazole 0.75 % cream 1 applic TOPICAL DAILY Patient Comments: APPLY A THIN LAYER TO THE AFFECTED AREA(S) TWO TIMES A DAY ( MORNING AND EVENING) diazepam 5 mg tablet Patient Comments: TAKE ONE TABLET BY MOUTH EVERY 8 HOURS FOR 1 DAY; THEN TAKE EVERY 12 HOURS ON DAY 2 AND 3; THEN ONCE AT NIGHT ON DAY 4 mometasone 50 mcg/actuation [place],Non-Aerosol 1 spray INTRANASAL DAILY acetaminophen 500 mg tablet 500 mg PO Q6H PRN (Reason: pain) Qty: 60 2RF ibuprofen 600 mg tablet 600 mg PO TID PRN (Reason: pain) Qty: 60 0RF
[2025-02-22] MEDS: Nicotine 2 MG GUM CH (09:00)
[2025-02-22] MEDS: chlordiazePOXIDE 25 MG CAP 50 MG PO (09:00)
[2025-02-22 09:02] VITALS: BP 137/97; PULSE 115; RESP 16; TEMP 36.4; O2SAT 99
--- NOTE | 2025-02-22 11:15 | ED.PROG_ITS ---
Date of service: 02/22/25 Time of Service: 11:17 Medical Decision Making Patient met with mental health and now agreed to safety plan and will follow-up as an outpatient. Patient has been calm and cooperative since being here in feel this is reasonable. Denies si/hi currently. Quality:SDOH Health Related Social Needs: No Data to Display Discharge Plan Disposition Patient Disposition: Home Specific Acute Inpt Facility: Other Condition: Stable Discharge Details Clinical Impression: Chronic alcohol abuse, Fracture of fifth metacarpal bone of left hand, Depression with suicidal ideation Primary Care Provider: Salud Braga ED Provider: Alberto Partida [place] Meds and New Rx's Prescriptions: No Action loratadine [Claritin] 10 mg tablet 10 mg PO DAILY PRN (Reason: allergy symptoms) Qty: 45 2RF hydroxyzine HCl 50 mg tablet 50 mg PO QHS Qty: 14 0RF propranolol 10 mg tablet 10 mg PO DAILY Patient Comments: TAKE ONE TABLET BY MOUTH TWICE A DAY metronidazole 0.75 % cream 1 applic TOPICAL DAILY Patient Comments: APPLY A THIN LAYER TO THE AFFECTED AREA(S) TWO TIMES A DAY ( MORNING AND EVENING) diazepam 5 mg tablet Patient Comments: TAKE ONE TABLET BY MOUTH EVERY 8 HOURS FOR 1 DAY; THEN TAKE EVERY 12 HOURS ON DAY 2 AND 3; THEN ONCE AT NIGHT ON DAY 4 mometasone 50 mcg/actuation [place],Non-Aerosol 1 spray INTRANASAL DAILY acetaminophen 500 mg tablet 500 mg PO Q6H PRN (Reason: pain) Qty: 60 2RF ibuprofen 600 mg tablet 600 mg PO TID PRN (Reason: pain) Qty: 60 0RF
--- NOTE | 2025-02-22 12:28 | PDOC.CMDIS ---
Date of service: 02/22/25 Time of Service: 12:28 Care Management Discharge Plan Reason for Hospitalization: depression with SI Discharge Plan: After meeting with [facility], it was decided that Lynda will be discharged home today on a safety plan. She will transport home in a private vehicle. She will f/u in person with [facility] on 02/25. She has been connected to [facility], and they will continue to follow her and connect her with a sobriety customer care team coach. SDOH Health Related Social Needs: No Data to Display MH Services (Omit if N/A) Current MH Services: [facility] Referred to Internal [facility] (ED embedded) case folder?: No Disposition Disposition: Community Discharge (Safety Plan) [facility]
--- NOTE | 2025-02-22 17:43 | MHPN_ITS ---
Date of service: 02/22/25 Time of Service: 10:10 Mental Health Emergency Note Release [facility] release signed:: Yes Reason for Visit The client was experiencing hi SI. In the last 2 weeks has the pt presented for ES prior to today?: Yes, presented at Client Information Client is: Adult Outpatient and Substance use Well Housed: Yes Non Suicidal Self Injury Current: No History: yes, Drinking, threatening to lay in front of train tracks. Safety Risk/Harm to Self or Others Current Ideation to Harm Self or Others: No Risk: Does risk to harm exist?: yes. Access to means: No. Risk: Low Risk Duty to warn indicated: No Impression The client presented clear headed and goal oriented. She expressed wanting to connect with services and [facility]. This automotive service writer spoke with ED physician and they agreed that safety planning was appropriate after connecting with [facility]. This automotive service writer will send referrals for therapy, case managment and med management. Resources Reosurces reviewed and given:: [facility] and Other Plan/Disposition Recommended Disposition: [facility] Services [facility] Services: Therapy and Other, Therapy, Med management and Community resources. Plan: The client was safety planned home with an in person follow up scheduled on Sunday and [facility]. Person reported agreement to plan: Yes Reports/communication Outcome discussed with: ED/Personnel
--- NOTE | 2025-02-22 17:49 | PDOC.MHPN2 ---
Date of service: 02/22/25 Time of Service: 10:45 Mental Health Emergency Note Release [facility] release signed:: Yes Reason for Visit Client is mentally unstable having urges to kill others. In the last 2 weeks has the pt presented for ES prior to today?: No Client Information Client is: Children's Well Housed: Yes Non Suicidal Self Injury Current: No History: yes, The client states that he unsafe. Safety Risk/Harm to Self or Others Current Ideation to Harm Self or Others: Yes to others. Intent: yes, has intent to harm others Plan: no, does not have a plan. Risk: Does risk to harm exist?: yes. Risk: High Risk Duty to warn indicated: Yes Asssessment/Mental Status Appearance: Unremarkable Impression This client shared that he slept well and has been eating well, but inquired about nicotine as he is struggling. The client reports that he is not currently feeling like hurting anyone, but he is feeling a little sad that two individuals are leaving Zone [facility]. The cleint asked if we had heard anything on the bed availability and this fiction and nonfiction writer prose let him know that he'll know as soon as he's accepted. Plan/Disposition Recommended Disposition: Hospitalization facilities contacted. Plan: The client is waiting in Zone B until inpatient placement. Person reported agreement to plan: Yes Reports/communication Outcome discussed with: ED/Personnel
== END 2025-02-22 12:54 | disposition home or self-care (01) ==
PROVIDERS: Emergency Medicine; Emergency Provider Emergency Medicine; PCP Nurse Practitioner Family
DX: F32.A Depression, unspecified (principal); R45.851 Suicidal ideations; F10.10 Alcohol abuse, uncomplicated; S62.307A Unspecified fracture of fifth metacarpal bone, left hand, initial encounter for closed fracture; X58.XXXA Exposure to other specified factors, initial encounter
CPT/HCPCS: 00123; 80053; 80307; 96127; 99285; H0046; 80320; 80329; 85025

== ENCOUNTER 2025-03-04 10:11 | Outpatient (CLI) | payer MEDICAID, SELFPAY ==
--- NOTE | 2025-03-04 10:15 | DI.RAD_ITS ---
Exam(s) XR HAND LT LIMITED EXAM: XR HAND LT LIMITED CLINICAL HISTORY: f/u fracture. TECHNIQUE: 2D digital imaging was performed of the left hand. Two views were obtained. PA and late ral views were obtained. COMPARISON: CR XR HAND LT LIMITED from 02/03/2025 FINDINGS: BONES: There is no change in alignment of the 5th metacarpal fracture. The fracture is less well vis ualized consistent with some interval healing. No bony destructive lesion is seen. JOINTS: No dislocation present. SOFT TISSUE: Normal. IMPRESSION: Stable healing 5th metacarpal fracture. DATA REPOSITORY: RADIATION DOSE DELIVERED:
== END 2025-03-04 10:12 | disposition home or self-care (01) ==
LOC: DIORS 10:11
PROVIDERS: PCP Nurse Practitioner Family; Visit Provider Student in an Organized Health Care Education/Training Program
DX: S62.307A Unspecified fracture of fifth metacarpal bone, left hand, initial encounter for closed fracture (principal)
CPT/HCPCS: 73120

== ENCOUNTER 2025-03-06 02:29 | Emergency (ER) | payer MEDICAID, SELFPAY ==
[2025-03-06 02:33] VITALS: BP 163/105; PULSE 89; RESP 20; TEMP 36.7; O2SAT 98
[2025-03-06 02:40] VITALS: RESP 18
--- NOTE | 2025-03-06 02:56 | ED.GENADUL_ITS ---
Discharge Plan Discharge Details Chief Complaint: Anxiety Clinical Impression: Alcohol intoxication, Anxiety, Alcohol abuse, Suicide ideation Primary Care Provider: Salud Braga ED Provider: Juliette Vu Home Meds and New Rx's Prescriptions: No Action loratadine [Claritin] 10 mg tablet 10 mg PO DAILY PRN (Reason: allergy symptoms) Qty: 45 2RF hydroxyzine HCl 50 mg tablet 50 mg PO QHS Qty: 14 0RF propranolol 10 mg tablet 10 mg PO DAILY Patient Comments: TAKE ONE TABLET BY MOUTH TWICE A DAY metronidazole 0.75 % cream 1 applic TOPICAL DAILY Patient Comments: APPLY A THIN LAYER TO THE AFFECTED AREA(S) TWO TIMES A DAY ( MORNING AND EVENING) diazepam 5 mg tablet Patient Comments: TAKE ONE TABLET BY MOUTH EVERY 8 HOURS FOR 1 DAY; THEN TAKE EVERY 12 HOURS ON DAY 2 AND 3; THEN ONCE AT NIGHT ON DAY 4 mometasone 50 mcg/actuation [place],Non-Aerosol 1 spray INTRANASAL DAILY acetaminophen 500 mg tablet 500 mg PO Q6H PRN (Reason: pain) Qty: 60 2RF ibuprofen 600 mg tablet 600 mg PO TID PRN (Reason: pain) Qty: 60 0RF HPI General Mode of arrival: ambulatory . Date/Time Provider Initiated Documentation: 03/06/25 02:34 . Information obtained by: patient, family and old records reviewed (ED visit 02/20/25) . HPI Narrative: 24yo F with hx anxiety, ETOH abuse, presenting with alcohol intoxication. Typical intake 1-2 boxes of wine; did drink a box of wine this evening. Denies prior hx of ETOH withdrawal. Denies SI/HI initially; friend at bedside reports that earlierthis evening around midnight while intoxicated she did state that she had nothing to live for and wanted to go lay down on the train tracks. Patient does not dispute this; denies any active SI or intent at this time. Denies any ingestions, friend at bedside with no concern for ingestion. Reports feeling quite anxious; hx of anxiety and takes hydroxyzine at home. No prior psychiatric hospitalizations but was seen in this ED on 02/20 for similar presentation with discharge from ED on 02/22; did receive scheduled librium during that state. Has scratches on her legs reportedly from running in the [place] (friend confirms this). Otherwise in her usual state of health with no fevers, chills, rash, nausea, vomiting, abdominal pain, chest pain, shortness of breath, or other concerns. Related Data Home Medications ?Medication ?Instructions ?Recorded ?Confirmed loratadine 10 mg tablet (Claritin) 10 mg PO DAILY PRN allergy 12/25/19 03/04/25 symptoms #45 tabs mometasone 50 mcg/actuation nasal 1 spray intranasal DAILY 12/19/21 03/04/25 spray acetaminophen 500 mg tablet 500 mg PO Q6H PRN pain #60 tabs 12/20/21 03/04/25 ibuprofen 600 mg tablet 600 mg PO TID PRN pain #60 tabs 12/20/21 03/04/25 hydroxyzine HCl 50 mg tablet 50 mg PO QHS #14 tabs 06/04/22 03/04/25 metronidazole 0.75 % topical cream 1 applic topical DAILY 12/14/24 03/04/25 propranolol 10 mg tablet 10 mg PO DAILY 12/14/24 03/04/25 diazepam 5 mg tablet mg 02/20/25 03/04/25 Previous Rx's ?Medication ?Instructions ?Recorded loratadine 10 mg tablet (Claritin) 10 mg PO DAILY PRN allergy 12/25/19 symptoms #45 tabs acetaminophen 500 mg tablet 500 mg PO Q6H PRN pain #60 tabs 12/20/21 ibuprofen 600 mg tablet 600 mg PO TID PRN pain #60 tabs 12/20/21 hydroxyzine HCl 50 mg tablet 50 mg PO QHS #14 tabs 06/04/22 Allergies Allergy/AdvReac Type Severity Reaction Status Date / Time No Known Allergies Allergy Verified 03/04/25 10:05 General Stated Complaint: Anxiety SHRADDHA: 4 Review of Systems Narrative: see HPI Exam Narrative Exam Narrative: General: Alert, well appearing, well nourished, in no acute distress. Head: Normocephalic, atraumatic Neck: Trachea midline, ?Neck supple. Cardiac: ?RRR, no murmurs appreciated Resp: No respiratory distress. CTAB. Abd: ?Soft, non-distended, nontender Extremities: ?No deformities.? No peripheral edema. Shallow abrasions bilateral lower extremities. Neurologic: GCS 15. ? Moves all extremities freely against gravity Psych: Tearful, mildly agitated. Mood shitty and anxious, affect congruent.? Speech with normal volume, rate, rythym and tone. Linear and goal directed.? Denies SI/HI/AH/VH. ? Does not appear to be responding to internal stimuli. Course Vital Signs Vital signs: Vital Signs Temperature 36.7 C 03/06/25 02:33 Pulse 89 03/06/25 02:33 Respiratory Rate 20 03/06/25 02:33 Blood Pressure 163/105 H 03/06/25 02:33 Pulse Oximetry 98 03/06/25 02:33 Temperature 36.7 C 03/06/25 02:33 Temperature Source Oral 03/06/25 02:33 Pulse 89 03/06/25 02:33 Respiratory Rate 18 03/06/25 02:40 Respiratory Effort Normal, Non-Labored 03/06/25 02:40 Respiratory Depth Normal 03/06/25 02:40 Respiratory Pattern Normal 03/06/25 02:40 Blood Pressure 163/105 H 03/06/25 02:33 Blood Pressure Position Sitting 03/06/25 02:33 Pulse Oximetry 98 03/06/25 02:33 Oxygen Delivery Method Room Air 03/06/25 02:33 Oxygen Flow Rate 0 03/06/25 02:33 Pain Level 0 03/06/25 02:33 Medical Decision Making 24yo F with hx anxiety, ETOH abuse, presenting with alcohol intoxication. Denies SI/HI initially; friend at bedside reports that earlier this evening while intoxicated she did state that she had nothing to live for and wanted to go lay down on the train tracks. Patient does not dispute this; denies any active SI or intent at this time. Hypertensive on arrival, vital signs otherwise reassuring. Tearful and mildly agitated on exam. Agreeable to remaining in the ED pending sober re-eval. CIWA 2. Will give hydroxzine for anxiety. POC negative. Patient subsequently became more agitated, states she needs to urinate but can't and that my bladder always gets locked up when I'm anxious. Requests straight cath. Bladder scan for >700cc, patient agitated and pulling out her hair, again requests cath. Straight cathed for ~1000ml, patient reports good relief and subsequently is calm. No further events overnight. Will be signed out to oncoming physician. Plan for sober re-eval; once sober if remains in ED would consider TID librium. Will need to void independently for medical clearance. Quality:SDOH Health Related Social Needs: No Data to Display PFSH All Active Problems Suicide ideation (Acute) Alcohol abuse (Chronic) Anxiety (Chronic) Alcohol intoxication (Acute) No-show for appointment (Acute) Depression with suicidal ideation (Acute) Chronic alcohol abuse (Acute) Fracture of fifth metacarpal bone of left hand (Acute ~01/19/25) Anxiety (Acute 03/15/17) Patellar instability of right knee (Chronic) Oral contraception initial prescription (Acute) Interstitial cystitis (Acute) Ganglion cyst of volar aspect of left wrist (Acute) s/p cyst excision 12/20/21 Medical History Eczema Depression Anxiety Surgical History Hx of wisdom tooth extraction Family History Mother Hyperlipidemia Mental disorder depression/anxiety OCD on disability PMS (premenstrual syndrome) ADHD (attention deficit hyperactivity disorder) Asthma Father Substance abuse Other Substance abuse Essential hypertension Heart disease Hyperlipidemia Mental disorder depression/anxiety Grandparent Substance abuse Essential hypertension Hyperlipidemia Mental disorder depression/anxiety Social History Smoking/Tobacco Use Status: Current every day Tobacco Type: e-cigarettes Smoking risk assessment performed?: Yes Alcohol Intake: current Alcohol Intake frequency: 3 or more drinks per day Alcohol type: wine Drug use: Occasionally Substance use type: marijuana Details: uses it to help her sleep has not used for a few days Housing: other Sexually active: Yes Do you think of yourself as: straight/heterosexual Current gender identity: female Do you feel safe at home: Yes Do you feel safe in your relationship?: Yes Female Reproductive History Menstrual Age of Menarche: 11 Duration of menses: 6-7 days control method: none and condoms History History 0 Para Hx # Term Pregnancies Multiple births Hx # Pregnancies Ectopic pregnancies AB induced Hx Number of Living Children AB spontaneous PAWSS Have you Been Recently Intoxicated or Drunk Within the Last 30 days?: No Have you Ever Experienced Previous Episodes of Alcohol Withdrawal?: No Have you ever Experienced Withdrawal Seizures?: No Have you ever Experienced Delirium Tremens(DT)s?: No Have you ever undergone Alcohol Rehabilitation Treatment (i.e, inpt ot outpatient treatment programs)?: No Have you ever Experienced Blackouts?: No Have you ever Combined Alcohol with other Downers within the last 90 days?: No Have you ever Combined Alcohol with any other Substance of Abuse during the last 90 days?: No Positive Blood Alcohol level on Presentation? [PCS.BAL]: Yes Evidence of Increased Autonomic Activity (i.e. HR>120, tremor, sweating, agitati on, nausea)?: No Result: 1
[2025-03-06] MEDS: hydrOXYzine HCL 25 MG TAB PO (03:33)
[2025-03-06] MEDS: Nicotine 2 MG GUM CH ×3 (04:59→21:08)
[2025-03-06 08:32] VITALS: BP 132/75; PULSE 85; RESP 16; O2SAT 97
[2025-03-06] MEDS: chlordiazePOXIDE 25 MG CAP 50 MG PO ×3 (10:00→19:15)
--- NOTE | 2025-03-06 10:15 | ED.PROG_ITS ---
Date of service: 03/06/25 Time of Service: 10:15 Medical Decision Making Care assumed from outgoing provider. Patient has a history of chronic alcohol abuse then presented last night complaining of suicidal ideation. Patient has appropriately sobered and does not have any signs or symptoms concerning for acute alcohol withdrawal syndrome. At this time she is still endorsing suicidal ideation. So she will be evaluated by mental health services. Patient has been evaluated by mental health services and has decided to stay voluntarily. Will continue to watch for signs and symptoms consistent with alcohol withdrawal and the patient has been been started on scheduled Librium. Quality:[facility] Health Related Social Needs: No Data to Display Discharge Plan Discharge Details Chief Complaint: Anxiety Clinical Impression: Alcohol intoxication, Anxiety, Alcohol abuse, Suicide ideation Primary Care Provider: Salud Braga ED Provider: Shakira Dyer Home Meds and New Rx's Prescriptions: No Action hydroxyzine HCl 50 mg tablet 50 mg PO QHS Qty: 14 0RF propranolol 10 mg tablet 10 mg PO DAILY Patient Comments: TAKE ONE TABLET BY MOUTH TWICE A DAY mometasone 50 mcg/actuation [place],Non-Aerosol 1 spray INTRANASAL DAILY
[2025-03-06 13:39] LABS: *AMPHETAMINES SCREEN URINE Negative (Negative); *BARBITURATES SCREEN URINE Negative (Negative); *BENZODIAZEPINES SCREEN URINE Positive (Negative); Cannabinoids THC Positive (Negative); Cocaine Screen,Urine Negative (Negative); METHADONE URINE SCREEN Negative (Negative); OPIATES URINE SCREEN Negative (Negative)
[2025-03-06 13:40] LABS: Tricyclic Antidepressants Negative (Negative)
--- NOTE | 2025-03-06 15:11 | CMSP_ITS ---
Date of service: 03/06/25 Time of Service: 15:12 Care Management Safety Plan Status Status: Voluntary Reason for Wait Reason for Wait: Inpatient Admission Safety Plan Safety Plan: VOLUNTARY FOR INPATIENT PSYCHIATRIC STABILIZATION.? Patient is appropriate in all interactions since arriving at [facility]; Pt has demonstrated appropriate coping and communication skills, has articulated his or her needs and concerns and is fully engaged during staff interactions. Safety plan has been established with patient, and care team, to adhere to patient goals, identify restrictions based on behavioral status, address nutrition, and determine allowed personal belongings, tools for hygiene and personal care. Determine level of activity including ambulation, level of superv ision, visitors, and determine privileges based on behaviors and level of engagement by pt. VOLUNTARY SAFETY PLAN: 1. Will remain on suicide precautions, in paper clothes 2. Will remain in Zone B under direct supervision of one-on-one staff at all times provided by [employer]; PAULA, NETWORK PLANNER lift slab operator. 3. May have paper cups, plates, finger foods as well as a cardboard spoon with which to eat meals. 4. Follow [facility] Management of the Admitted Behavioral Health Patient policy. 5. Shower available in Zone B without restriction. 6. Personal belongings-soft items permitted at RN discretion. 7. Visitors- boyfriend may visit; mother may not visit at this time, at RN discretion. 8. Activities: soft cart items, hospital tablets (Netflix/Jaylen+/music) approved per RN discretion. 9.? Bathroom available in Zone B without restriction. 10. Phone: incoming/outgoing calls limited to [facility] cordless phone at RN discretion. Due to VOLUNTARY status, if patient wishes to leave [facility], staff will contact [facility] Crisis Screener ([phone]) and Home Lending Officer ([phone]) as soon as possible. In the event of elopement, notify [place] [employer] ([phone]). Patient is currently voluntarily at [facility] and seeking inpatient admission when a bed becomes available. [facility] Frontline Shingler will continue seeking placement. Please contact the Home Lending Officer ([phone]) and [facility] Shingler ([phone]) for any needed changes in the Safety Plan. Safety plan has been provided to interdepartmental care team.
--- NOTE | 2025-03-06 15:11 | PDOC.CMSAFE ---
Date of service: 03/06/25 Time of Service: 15:12 Care Management Safety Plan Status Status: Voluntary Reason for Wait Reason for Wait: Inpatient Admission Safety Plan Safety Plan: VOLUNTARY FOR INPATIENT PSYCHIATRIC STABILIZATION.? Patient is appropriate in all interactions since arriving at [facility]; Pt has demonstrated appropriate coping and communication skills, has articulated his or her needs and concerns and is fully engaged during staff interactions. Safety plan has been established with patient, and care team, to adhere to patient goals, identify restrictions based on behavioral status, address nutrition, and determine allowed personal belongings, tools for hygiene and personal care. Determine level of activity including ambulation, level of supervision, visitors, and determine privileges based on behaviors and level of engagement by pt. VOLUNTARY SAFETY PLAN: 1. Will remain on suicide precautions, in paper clothes 2. Will remain in Zone B under direct supervision of one-on-one staff at all times provided by [employer]; PAULA, PIN STICKER ground services instructor. 3. May have paper cups, plates, finger foods as well as a cardboard spoon with which to eat meals. 4. Follow [facility] Management of the Admitted Behavioral Health Patient policy. 5. Shower available in Zone B without restriction. 6. Personal belongings-soft items permitted at RN discretion. 7. Visitors- boyfriend may visit; mother may not visit at this time, at RN discretion. 8. Activities: soft cart items, hospital tablets (Netflix/[place]+/music) approved per RN discretion. 9.? Bathroom available in Zone B without restriction. 10. Phone: incoming/outgoing calls limited to [facility] cordless phone at RN discretion. Due to VOLUNTARY status, if patient wishes to leave [facility], staff will contact [facility] Crisis Screener ([phone]) and Faculty Support Coordinator ([phone]) as soon as possible. In the event of elopement, notify [place] [employer] ([phone]). Patient is currently voluntarily at [facility] and seeking inpatient admission when a bed becomes available. [facility] Frontline Structural Engineering Project Manager will continue seeking placement. Please contact the Faculty Support Coordinator ([phone]) and [facility] Structural Engineering Project Manager ([phone]) for any needed changes in the Safety Plan. Safety plan has been provided to interdepartmental care team.
--- NOTE | 2025-03-06 15:13 | CMPROGNOTE_ITS ---
Date of service: 03/06/25 Time of Service: 15:13 Care Management Progress Note Progress Note Text Progress Note Text: CM huddled with staff regarding Lynda's plan of care. Per RN, Lynda has been appropriate during her time in zone B; she transitioned there this morning. She was talking on the phone to her boyfriend, which appeared to be a positive interaction. She has requested not to communicate or visit with her mother at this time. Per [facility], Lynda was sleepy and tearful during their interaction. She reported that she didn't know if she could remain safe in the community, stating that she may go lay on railroad tracks. She agreed to stay voluntarily, although she was not happy about not being able to have her belongings, specifically her phone. Lynda is currently voluntary, seeking inpatient psychiatric treatment. [facility] is sending referrals to facilities. Safety plan in place; her boyfriend was identified as a support, and her mother is not a good support. CM will continue to follow. Social Determinants of Health Screening Will the Patient Participate in the Screening?: Unable to obtain
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
--- NOTE | 2025-03-06 15:51 | W.EDPROG ---
Date of service: 03/06/25 Time of Service: 16:00 Medical Decision Making Patient with suicidal ideation voluntary for psychiatric admission. Patient requested reevaluation by [facility]. She would like to safety plan home. Patient was reevaluated by [facility]. Patient does not meet criteria for an involuntary admission. She was safety planned home. Quality:[facility] Health Related Social Needs: No Data to Display Discharge Plan Disposition Patient Disposition: Home Specific Psychiatric Facility: Other Condition: Stable Discharge Details Clinical Impression: Alcohol intoxication, Anxiety, Alcohol abuse, Suicide ideation Primary Care Provider: Salud Braga ED Provider: Devora Rodriguez [place] Meds and New Rx's Prescriptions: No Action hydroxyzine HCl 50 mg tablet 50 mg PO QHS Qty: 14 0RF propranolol 10 mg tablet 10 mg PO DAILY Patient Comments: TAKE ONE TABLET BY MOUTH TWICE A DAY mometasone 50 mcg/actuation [place],Non-Aerosol 1 spray INTRANASAL DAILY Discharge Instructions Instructions: Alcohol Use Disorder ED, Anxiety, Adult ED, Alcohol Intoxication ED, Depression in adults - Discharge instructions Referrals: Salud Braga [Primary Care Provider] - Discharge Data Discharge Physician: Devora Rodriguez
--- NOTE | 2025-03-07 05:37 | ED.PROG_ITS ---
Date of service: 03/07/25 Time of Service: 00:00 Medical Decision Making Patient discharged by offgoing provider (here with SI, safety-planned home) however unable to get ride overnight. Allowed to sleep in the ED overnight until bus running in the morning. No complaints overnight. Normal vital signs. Left at 0715. Quality:SDOH Health Related Social Needs: No Data to Display Discharge Plan Disposition Patient Disposition: Home Condition: Stable Discharge Details Clinical Impression: Alcohol intoxication, Anxiety, Alcohol abuse, Suicide ideation Primary Care Provider: Salud Braga ED Provider: Devora Rodriguez [place] Meds and New Rx's Prescriptions: No Action hydroxyzine HCl 50 mg tablet 50 mg PO QHS Qty: 14 0RF propranolol 10 mg tablet 10 mg PO DAILY Patient Comments: TAKE ONE TABLET BY MOUTH TWICE A DAY mometasone 50 mcg/actuation [place],Non-Aerosol 1 spray INTRANASAL DAILY Discharge Instructions Instructions: Alcohol Use Disorder ED, Anxiety, Adult ED, Alcohol Intoxication ED, Depression in adults - Discharge instructions Referrals: Salud Braga [Primary Care Provider] - Discharge Data Discharge Physician: Devora Rodriguez
--- NOTE | 2025-03-07 12:19 | PDOC.MHPN2 ---
Date of service: 03/06/25 Time of Service: 20:30 Suicide Severity Rate CSSRS Have you wished you were or wished you could go to sleep and not wake up?: No Have you actually had any thoughts of killing yourself?: No CSSRS3 Have you ever done anything, started to do anything or prepared to do anything to end your life?: No Screening Score Total Score: 0 Screening: Negative Mental Health Emergency Note Release [facility] release signed:: Yes Reason for Visit Client was currently waiting at [facility] for voluntary placement after being brought to [facility] via [employer] utility worker forge of 03/06/25. The client was assessed later in the morning by ES. This assessment resulted in voluntary impatient treatment. The client was now requesting to go home on a safety plan. The client is known to [facility] and this keno writer / runner. The client has been hospitalized once in the past at [facility]. In the last 2 weeks has the pt presented for ES prior to today?: Yes, presented at Client Information Well Housed: Yes Non Suicidal Self Injury Current: No History: No Safety Risk/Harm to Self or Others Current Ideation to Harm Self or Others: No Risk: Does risk to harm exist?: No Risk: Low Risk Duty to warn indicated: No Asssessment/Mental Status Appearance: Disheveled Attitude: Demanding and Friendly Behavior: Agitated Speech: Normal Affect: Cogruent with mood Mood: Anxious Thought process: Circumstational Hallucinations: No Delusions: No Attention: Unremarkable Perception: Not impaired Orientation: Fully orientated Memory: Intact Insight: Poor Judgement: Poor Neurovegetative Symptoms Sleep: No change Appetitie: No change Interests: Decrease Energy: Decrease Libido: Not applicable Additional Issues: Assaultive/Threatening Behavior: No Medical Concerns: No Client engaged in active self harm w/weapon: No Threatening to run away: No Child reported abuse/neglect: No Domestic violence is a concern: No Extreme Psychosis or extreme behavior is present: No Impression The client is a 24 year old biological female. The client is currently residing in [facility] with her family. The client presents in blue paper scrubs in her hospital bed in a disheveled appearance. Affect is congruent with mood. Client is friendly and demanding with this clinician; they report their mood as okay but anxious. Thought process appears circumstantial. There are no delusions observed. The client denies having any auditory and visual hallucinations. Cognitive assessment reveals orientation to person, place and time. The client is requesting to go home at this time on a safety plan. The client states she wants to go to a hotel tonight and needs to be mentally stronger. The client states she needs to accept the fact that she has lost her family and job at this point. The client expresses that she is struggling around her sobriety. The client appears to be future oriented as she talks about wanting to find a daily routine that works for her and obtaining better eating habits. The client denies SI, HI and NSSI to this clinician. The client did report having suicidal thoughts this morning, but is currently feeling better and no longer wanting inpatient treatment. This clinician strongly encouraged the client staying and seeking voluntary treatment as [facility] is looking to accept her tonight. The client denied wanting to go and stated she just wanted to go home. This clinician safety planned the client with follow up actions. Plan/Disposition Recommended Disposition: [facility] Services [facility] Services: Psychiatric Evaluation. Plan: The client was safety planned with follow up actions of following up with her PCP around her sobriety, and following up with ES on Sunday at 1pm. Reports/communication Outcome discussed with: ED/Personnel
== END 2025-03-07 07:26 | disposition home or self-care (01) ==
PROVIDERS: Emergency Medicine; Emergency Provider Emergency Medicine Emergency Medical Services; PCP Nurse Practitioner Family
DX: R45.851 Suicidal ideations (principal); F41.9 Anxiety disorder, unspecified; F10.129 Alcohol abuse with intoxication, unspecified
CPT/HCPCS: 99285 ×3; 81025; 00123; 80307; 96127; H0046

== ENCOUNTER 2025-03-11 12:52 | Emergency (ER) | payer MEDICAID, SELFPAY ==
[2025-03-11 12:56] VITALS: BP 150/100; PULSE 91; RESP 20; TEMP 36.8; O2SAT 94
== END 2025-03-11 14:21 | disposition left against medical advice (07) ==
PROVIDERS: Emergency Provider Registered Nurse Emergency; PCP Nurse Practitioner Family
DX: Z53.21 Procedure and treatment not carried out due to patient leaving prior to being seen by health care provider (principal)
CPT/HCPCS: 99283; 99282

== ENCOUNTER 2025-03-11 14:25 | Emergency (ER) | payer MEDICAID, SELFPAY ==
[2025-03-11 14:29] VITALS: BP 132/105; PULSE 94; RESP 20; TEMP 36.3; O2SAT 98
--- NOTE | 2025-03-11 15:11 | W.ED.GENAD ---
Discharge Plan Disposition Patient Disposition: Home Condition: Stable Discharge Details Clinical Impression: Alcohol intoxication Primary Care Provider: Salud Braga ED Provider: Alberto Partida Home Meds and New Rx's Prescriptions: Continued hydroxyzine HCl 50 mg tablet 50 mg PO QHS Qty: 14 0RF propranolol 10 mg tablet 10 mg PO DAILY Patient Comments: TAKE ONE TABLET BY MOUTH TWICE A DAY mometasone 50 mcg/actuation [place],Non-Aerosol 1 spray INTRANASAL DAILY Discharge Instructions Additional Instructions: Follow-up with your primary care provider. I would recommend as you are planning to try and get into an alcohol detox facility. If you feel more ill or have worsening thoughts of self-harm return to the emergency department for reevaluation. HPI General Date/Time Provider Initiated Documentation: 03/11/25 14:26. Limitations to Documentation: no limitations. Information obtained by: patient. History of Present Illness 24 year old F presents to the emergency department with the chief complaint of anxiety, alcohol abuse, described as moderate, Patient started experiencing this week(s) (2) and it has been intermittent. No relieving factors improve symptom(s), No exacerbating factors reported . Patient notes denies shortness of breath. Patient did receive the following treatments prior to arrival, none Related Data Home Medications ?Medication ?Instructions ?Recorded ?Confirmed mometasone 50 mcg/actuation nasal 1 spray intranasal DAILY 12/19/21 03/11/25 spray hydroxyzine HCl 50 mg tablet 50 mg PO QHS #14 tabs 06/04/22 03/11/25 propranolol 10 mg tablet 10 mg PO DAILY 12/14/24 03/11/25 Previous Rx's ?Medication ?Instructions ?Recorded hydroxyzine HCl 50 mg tablet 50 mg PO QHS #14 tabs 06/04/22 Allergies Allergy/AdvReac Type Severity Reaction Status Date / Time No Known Allergies Allergy Verified 03/11/25 14:34 General Stated Complaint: ETOHWithdr SHRADDHA: 3 Review of Systems All systems reviewed & are unremarkable except as noted in HPI and below Constitutional Constitutional: Denies chills and Denies fever(s) Cardiovascular Cardiovascular: Denies chest pain and Denies dyspnea Respiratory Respiratory: Denies cough and Denies dyspnea Gastrointestinal Gastrointestinal: Denies abdominal pain, Reports nausea and Denies vomiting Genitourinary Genitourinary: Reports dysuria Musculoskeletal Musculoskeletal: Denies joint swelling Exam Const General: no acute distress and anxious Orientation: alert [facility] Head: normal to inspection Ears: external ears normal General nose exam: external nose normal Mouth: moist mucous membranes Eyes General: appearance normal, both eyes and all related structures Neck Neck: normal visual inspection Resp Effort & Inspection: normal respiratory effort and able to speak in complete sentences Cardio Rate: regular rate GI Palpation: soft and nontender Skin General skin exam: no rashes or lesions noted Neuro General: patient alert and patient oriented x3 Extrem General: normal to inspection Psych Appearance: disheveled Course Vital Signs Vital signs: Vital Signs Temperature 36.3 C L 03/11/25 14:29 Pulse 94 H 03/11/25 14:29 Respiratory Rate 20 03/11/25 14:29 Blood Pressure 132/105 H 03/11/25 14:29 Pulse Oximetry 98 03/11/25 14:29 Temperature 36.3 C L 03/11/25 14:29 Pulse 94 H 03/11/25 14:29 Respiratory Rate 20 03/11/25 14:29 Blood Pressure 132/105 H 03/11/25 14:29 Blood Pressure Position Sitting 03/11/25 14:29 Pulse Oximetry 98 03/11/25 14:29 Oxygen Delivery Method Room Air 03/11/25 14:29 Oxygen Flow Rate 0 03/11/25 14:29 Medical Decision Making 24-year-old female with history of alcohol abuse was seen last week for alcohol abuse and anxiety and also made vague statements of self-harm comes in with continued drinking of significant mount of alcohol and feels she has alcohol withdrawal. She says she has nausea, feels anxious and painful urination. She denies any other drug use within the last 2 weeks. She is disheveled on exam, she is oriented x 4, moving all extremities well, her abdomen is soft and nontender. She has no tremors. I suspect she is feeling this way from having alcohol in her system more having a hangover, she has no physical exam findings consistent with withdrawal. Will treat her nausea and anxiety with lorazepam and check CBC CMP and ethyl alcohol level and urinalysis along with urine drug screen. She denies any thoughts of self-harm or wanting to harm others when I ask her. Blood work unremarkable other than an EtOH level of 180. Has not been able to provide a urine yet. She met with the transformation coach. When I went back in and advised that she would likely be discharged she became tearful and states that as she now has thoughts of self-harm especially because she has nowhere to go tonight. Given this we will have her stay in the ER until sees closer to the level of 0 of alcohol and have mental health evaluate. Patient now much more clinically sober and has her mom in the room with her boyfriend. She has been eating and drinking without issues. She now states she is not having any thoughts of self-harm and that was from feeling intoxicated. She would like discharge and does not want to wait for mental health to talk to her. Her mother is comfortable picking her home and will be staying with her. Given she was intoxicated when she first made the statements of self-harm I do not feel I can hold her against her will as she is now clinically sober and not making threats of self-harm. She will follow-up with her PCP and also was given call locations that offer alcohol detox. Return precautions given Medical Records Medical records reviewed: Yes I reviewed the patient's medical records. Lab Data Lab results reviewed: Yes I reviewed the patient's lab results. Quality:SDOH Health Related Social Needs: No Data to Display PFSH All Active Problems Suicide ideation (Acute) Alcohol abuse (Chronic) Anxiety (Chronic) Alcohol intoxication (Acute) No-show for appointment (Acute) Depression with suicidal ideation (Acute) Chronic alcohol abuse (Acute) Fracture of fifth metacarpal bone of left hand (Acute ~01/19/25) Anxiety (Acute 03/15/17) Patellar instability of right knee (Chronic) Oral contraception initial prescription (Acute) Interstitial cystitis (Acute) Ganglion cyst of volar aspect of left wrist (Acute) s/p cyst excision 12/20/21 Medical History Eczema Depression Anxiety Surgical History Hx of wisdom tooth extraction Family History Mother Hyperlipidemia Mental disorder depression/anxiety OCD on disability PMS (premenstrual syndrome) ADHD (attention deficit hyperactivity disorder) Asthma Father Substance abuse Other Substance abuse Essential hypertension Heart disease Hyperlipidemia Mental disorder depression/anxiety Grandparent Substance abuse Essential hypertension Hyperlipidemia Mental disorder depression/anxiety Social History Smoking/Tobacco Use Status: Current every day Tobacco Type: e-cigarettes Smoking risk assessment performed?: Yes Alcohol Intake: current Alcohol Intake frequency: 3 or more drinks per day Alcohol type: wine Drug use: Daily Substance use type: marijuana Details: uses it to help her sleep has not used for a few days Housing: other Sexually active: Yes Do you think of yourself as: straight/heterosexual Current gender identity: female Do you feel safe at home: Yes Do you feel safe in your relationship?: Yes Female Reproductive History Menstrual Age of Menarche: 11 Duration of menses: 6-7 days control method: none and condoms History History 0 Para Hx # Term Pregnancies Multiple births Hx # Pregnancies Ectopic pregnancies AB induced Hx Number of Living Children AB spontaneous PAWSS Have you Been Recently Intoxicated or Drunk Within the Last 30 days?: Yes Have you Ever Experienced Previous Episodes of Alcohol Withdrawal?: Yes Have you ever Experienced Withdrawal Seizures?: Yes Have you ever Experienced Delirium Tremens(DT)s?: Yes Have you ever undergone Alcohol Rehabilitation Treatment (i.e, inpt ot outpatient treatment programs)?: No Have you ever Experienced Blackouts?: Yes Have you ever Combined Alcohol with other Downers within the last 90 days?: No Have you ever Combined Alcohol with any other Substance of Abuse during the last 90 days?: No Evidence of Increased Autonomic Activity (i.e. HR>120, tremor, sweating, agitation, nausea)?: Yes Result: 6
[2025-03-11 15:24] LABS: Abs Immature Grans 0.02 10^3/uL (0.0-0.06); Absolute Basophil Count 0.07 10^3/uL (0.0-0.2); Absolute Eosinophil Count 0.07 10^3/uL (0.0-0.7); Absolute Lymphocyte Count 2.05 10^3/uL (1.2-3.4); Absolute Monocyte Count 0.57 10^3/uL (0.1-0.8); Absolute Neutrophil Count 4.25 10^3/uL (1.2-6.7); HCT 40.9 % (36.0-46.0); HGB 13.7 g/dL (11.2-15.7); Immature Grans % 0.3 %; Lymphocytes % 29.2 %; MCH 31.3 pg (27.0-33.0); MCHC 33.5 % (32.0-36.0); MCV 93 fL (80-95); Monocytes % 8.1 %; Neutrophils % 60.4 %; Platelet Count 343 10^3/uL (130-400); RBC 4.38 10^6/uL (3.93-5.22); RDW 13.1 % (11.7-14.6); RDW-SD 45.1 fL; WBC 7.03 10^3/uL (4.4-10.8)
[2025-03-11 15:37] LABS: ETHANOL BLOOD 181.3 mg/dL (<10)
[2025-03-11 15:40] LABS: ALT 29 U/L (14-59); AST 18 U/L (15-37); Albumin 3.8 g/dL (3.4-5.0); Alkaline Phosphatase 75 U/L (46-116); BUN 11 mg/dL (7-18); Bilirubin, Total 0.3 mg/dL (0.2-1.0); CREATININE 0.7 mg/dL (0.55-1.02); Calcium 8.4 mg/dL (8.5-10.1); Chloride 106 mmol/L (98-107); Estimated GFR 123.78 (mL/min/1.73m2); Glucose 82 mg/dL (74-106); Magnesium 2.1 mg/dL (1.8-2.4); Sodium 142 mmol/L (136-145); Total Protein 7.3 g/dL (6.4-8.2)
[2025-03-11 15:54] LABS: HCG Qual (Serum) Negative
[2025-03-11] MEDS: Normal Saline 1,000 ML 1000 ML IV (15:56)
[2025-03-11] MEDS: LORazepam 2 MG/ML VIAL 1 MG IM (15:56)
--- NOTE | 2025-03-11 17:37 | NUR.NOTE ---
Nursing Note: The patient used her boyfriends phone to call her mom. This nurse spoke with the boyfriend and I told him that he is not to allow her to use his phone. Part of our protocol is that she will have no access to electronics that do not belong to this facility. He attempted to argue with me about it but I told him that if he was unwilling to follow our rules, he would be asked to leave. During that phone call, the patient asked her mom to come and visit with her. There was a question about a restraining order from the last time the patient was in our facility. I spoke with the patient about this restraining order and asked her specifically if she had a restraining order against her mom, she said no. I then asked her if her mother had a restraining order against her and she also said no to that. She also stated that she wanted her mom to come back and visit with her.
[2025-03-11 18:09] LABS: Bilirubin Negative (Negative); Blood Large (Negative); Clarity Clear (Clear); Glucose Negative (Negative); Ketones Negative (Negative); Leukocyte Esterase Negative (Negative); Nitrite Negative (Negative); Specific Gravity 1.015 (1.005-1.025); Urobilinogen 0.2 mg/dL (Up to 0.2)
[2025-03-11 18:17] LABS: RBC >50 HPF (0-2); WBC Negative HPF (0-5)
[2025-03-11 18:18] LABS: Bacteria Rare HPF (Negative); C & S Indicated? No; Casts Negative LPF (Negative); Crystals Negative HPF (Negative); Epithelial Cells Rare HPF (Negative); Mucus Negative (Negative); Other Cells Rare Renal (Negative)
[2025-03-11 18:26] LABS: *AMPHETAMINES SCREEN URINE Negative (Negative); *BARBITURATES SCREEN URINE Negative (Negative); *BENZODIAZEPINES SCREEN URINE Positive (Negative); Cannabinoids THC Positive (Negative); Cocaine Screen,Urine Negative (Negative); METHADONE URINE SCREEN Negative (Negative); OPIATES URINE SCREEN Negative (Negative)
[2025-03-11 18:29] LABS: Tricyclic Antidepressants Negative (Negative)
[2025-03-11 19:00] VITALS: BP 177/74; PULSE 74; RESP 16; O2SAT 95
== END 2025-03-11 19:01 | disposition home or self-care (01) ==
PROVIDERS: Emergency Provider Emergency Medicine; PCP Nurse Practitioner Family
DX: F10.929 Alcohol use, unspecified with intoxication, unspecified (principal)
CPT/HCPCS: 99284 ×2; 96374; 51701; 36415; 51798; 80053; 80307; 96361; 80320; 81003; 81015; 83735; 84703; 85025; J2060

== ENCOUNTER 2025-03-13 21:13 | Emergency (ER) | payer MEDICAID, SELFPAY ==
[2025-03-13] VITALS (8 sets, daily range): BP systolic 147–161; BP diastolic 97–109; PULSE 94–114; RESP 14–22; TEMP 36.2; O2SAT 97–99
--- NOTE | 2025-03-13 21:00 | DI.CT_ITS ---
Exam(s) CT HEAD WO EXAM: CT HEAD WO CLINICAL HISTORY: HEAD TRAUMA. TECHNIQUE: Imaging Protocol: Axial computed tomography images with coronal and sagittal reformatted images were created and reviewed COMPARISON: No exams were available for comparison FINDINGS: Ventricles and Extra axial spaces: Normal in size and morphology for the patient's age. Hemorrhage: None. Cerebral parenchyma: No evidence of acute infarct or mass. Midline shift: None. Brainstem/Cerebellum: Normal. Calvarium: Normal. Visualized Paranasal sinuses:Clear. Mastoids: Clear. Soft Tissues: Right scalp swelling near the vertex. ORBITS: Unremarkable. PITUITARY: Not enlarged. IMPRESSION: No acute intracranial process. RADIATION DOSE DELIVERED: Total DLP DATA REPOSITORY: All CT scans at this facility are submitted to the National Radiology Data Registry (NRDR) Dose Index Registry (DIR) with the [employer] (ACR). RADIATION OPTIMIZATION: All CT scans at this facility use at least one of these dose optimization te chniques: automated exposure control; mA and/or kV adjustment per patient size (includes targeted exa ms where dose is matched to clinical indication); or iterative reconstruction.
[2025-03-13 21:26] LABS: Abs Immature Grans 0.03 10^3/uL (0.0-0.06); Absolute Basophil Count 0.06 10^3/uL (0.0-0.2); Absolute Eosinophil Count 0.13 10^3/uL (0.0-0.7); Absolute Lymphocyte Count 1.75 10^3/uL (1.2-3.4); Absolute Monocyte Count 0.57 10^3/uL (0.1-0.8); Absolute Neutrophil Count 4.28 10^3/uL (1.2-6.7); Basophils % 0.9 %; Eosinophils % 1.9 %; HCT 39.7 % (36.0-46.0); HGB 13.3 g/dL (11.2-15.7); Immature Grans % 0.4 %; Lymphocytes % 25.7 %; MCH 31.5 pg (27.0-33.0); MCHC 33.5 % (32.0-36.0); MCV 94 fL (80-95); MPV 9.1 fL (8.0-11.0); Monocytes % 8.4 %; Neutrophils % 62.7 %; Platelet Count 322 10^3/uL (130-400); RBC 4.22 10^6/uL (3.93-5.22); RDW 13.1 % (11.7-14.6); RDW-SD 45.1 fL; WBC 6.82 10^3/uL (4.4-10.8)
--- NOTE | 2025-03-13 21:48 | ED.GENADUL_ITS ---
Discharge Plan Discharge Details Chief Complaint: HeadInjury Clinical Impression: Alcohol intoxication, Chronic alcohol abuse, Alcohol abuse, Contusion of scalp Primary Care Provider: Salud Braga ED Provider: Shakira Dyer Home Meds and New Rx's Prescriptions: No Action hydroxyzine HCl 50 mg tablet 50 mg PO QHS Qty: 14 0RF propranolol 10 mg tablet 10 mg PO DAILY Patient Comments: TAKE ONE TABLET BY MOUTH TWICE A DAY mometasone 50 mcg/actuation [place],Non-Aerosol 1 spray INTRANASAL DAILY HPI General Date/Time Provider Initiated Documentation: 03/13/25 21:16 . Limitations to Documentation: physical limitation . Information obtained by: patient and EMS . HPI Narrative: 24-year-old female with past medical history of alcohol abuse disorder presents for evaluation of intoxication, agitated behavior and head trauma. Per EMS the patient was arrested by [facility] due to the violation of the condition of her release. When she was brought to the [facility] there ex, she started hitting her head on the wall and they noted that she was bleeding. There was no loss of consciousness or seizure-like activity. On EMS arrival they noted the patient to be highly combative screaming yelling and refusing to cooperate. IM droperidol was given and this resulted in the patient's capacity to participate. Per EMS her alcohol level by [facility] was 0.18, normal blood sugar, and the patient also endorsed using kratom. Related Data Home Medications ?Medication ?Instructions ?Recorded ?Confirmed mometasone 50 mcg/actuation nasal 1 spray intranasal DAILY 12/19/21 03/13/25 spray hydroxyzine HCl 50 mg tablet 50 mg PO QHS #14 tabs 06/04/22 03/13/25 propranolol 10 mg tablet 10 mg PO DAILY 12/14/24 03/13/25 Previous Rx's ?Medication ?Instructions ?Recorded hydroxyzine HCl 50 mg tablet 50 mg PO QHS #14 tabs 06/04/22 Allergies Allergy/AdvReac Type Severity Reaction Status Date / Time No Known Allergies Allergy Verified 03/13/25 21:21 General Stated Complaint: HeadInjury SHRADDHA: 3 Exam Narrative Exam Narrative: Review of Systems: All systems reviewed & are unremarkable except as noted in HPI and below Crying for her mommy Abrasion over the right parietal scalp no obvious laceration noted, bleeding noted from that area PERRL, normal conjunctiva Mild tachycardia Unlabored respiratory effort no hypoxia Nondistended abdomen soft nontender Patient has scattered bruises and scratches throughout her body, normal gait Course Vital Signs Vital signs: Vital Signs Temperature 36.2 C L 03/13/25 21:15 Pulse 96 H 03/13/25 21:15 Respiratory Rate 18 03/13/25 21:15 Blood Pressure 147/108 H 03/13/25 21:15 Pulse Oximetry 97 03/13/25 21:15 Temperature 36.2 C L 03/13/25 21:15 Pulse 96 H 03/13/25 21:15 Respiratory Rate 18 03/13/25 21:15 Respiratory Effort Normal 03/13/25 21:36 Blood Pressure 147/108 H 03/13/25 21:15 Pulse Oximetry 97 03/13/25 21:15 Oxygen Delivery Method Room Air 03/13/25 21:15 Oxygen Flow Rate 0 03/13/25 21:15 Lab/Test Results Lab/Test Results: Laboratory Tests Range/Units 03/13/25 21:21 WBC (4.4-10.8) 10^3/uL 6.82 RBC (3.93-5.22) 10^6/uL 4.22 Hgb (11.2-15.7) g/dL 13.3 Hct (36.0-46.0) % 39.7 MCV (80-95) fL 94 MCH (27.0-33.0) pg 31.5 MCHC (32.0-36.0) % 33.5 RDW (11.7-14.6) % 13.1 Plt Count (130-400) 10^3/uL 322 MPV (8.0-11.0) fL 9.1 Immature Gran % % 0.4 Neutrophils % % 62.7 Lymphocytes % % 25.7 Monocytes % % 8.4 Eosinophils % % 1.9 Basophils % % 0.9 Nucleated RBC % (0.0-0.3) % 0.0 Absolute Neutrophils (1.2-6.7) 10^3/uL 4.28 Absolute Lymphocytes (1.2-3.4) 10^3/uL 1.75 Absolute Monocytes (0.1-0.8) 10^3/uL 0.57 Absolute Eosinophils (0.0-0.7) 10^3/uL 0.13 Absolute Basophils (0.0-0.2) 10^3/uL 0.06 Medical Decision Making Emergent evaluation of altered mental status, intoxication and polysubstance abuse. Patient had self-inflicted head trauma. Abrasion to scalp does not require repair. She has been a patient in this emergency department multiple times recently all alcohol related visits. Patient usually endorses some type of suicidal ideation, her last visit she was wildly out of control and was pulling her hair out. She is stating that she cannot pee and herself requesting catheterization. The patient does not have history of urinary retention and does not self cath at home, this is some typical behavioral issue and I do not feel that it would be appropriate to This patient given that she can voluntarily urinate. Plan for lab work for medical clearance and CT imaging of head. Lab work reviewed, normal white blood cell count no anemia. Elevated anion gap and decreased carbon dioxide. Likely alcoholic acidosis. Alcohol level 201. Not . Urine drug screen still pending. Patient has no history of known significant alcohol withdrawal symptoms, but we will continue to monitor closely. Pending sobriety for discharge. Quality:SDOH Health Related Social Needs: No Data to Display PFSH All Active Problems Contusion of scalp (Acute) Suicide ideation (Acute) Alcohol abuse (Chronic) Anxiety (Chronic) Alcohol intoxication (Acute) No-show for appointment (Acute) Depression with suicidal ideation (Acute) Chronic alcohol abuse (Acute) Fracture of fifth metacarpal bone of left hand (Acute ~01/19/25) Anxiety (Acute 03/15/17) Patellar instability of right knee (Chronic) Oral contraception initial prescription (Acute) Interstitial cystitis (Acute) Ganglion cyst of volar aspect of left wrist (Acute) s/p cyst excision 12/20/21 Medical History Eczema Depression Anxiety Surgical History Hx of wisdom tooth extraction Family History Mother Hyperlipidemia Mental disorder depression/anxiety OCD on disability PMS (premenstrual syndrome) ADHD (attention deficit hyperactivity disorder) Asthma Father Substance abuse Other Substance abuse Essential hypertension Heart disease Hyperlipidemia Mental disorder depression/anxiety Grandparent Substance abuse Essential hypertension Hyperlipidemia Mental disorder depression/anxiety Social History Smoking/Tobacco Use Status: Current every day Tobacco Type: e-cigarettes Smoking risk assessment performed?: Yes Alcohol Intake: current Alcohol Intake frequency: 3 or more drinks per day Alcohol type: wine Drug use: Daily Substance use type: marijuana Details: uses it to help her sleep has not used for a few days Housing: other Sexually active: Yes Do you think of yourself as: straight/heterosexual Current gender identity: female Do you feel safe at home: Yes Do you feel safe in your relationship?: Yes Female Reproductive History Menstrual Age of Menarche: 11 Duration of menses: 6-7 days control method: none and condoms History History 0 Para Hx # Term Pregnancies Multiple births Hx # Pregnancies Ectopic pregnancies AB induced Hx Number of Living Children AB spontaneous PAWSS Have you Been Recently Intoxicated or Drunk Within the Last 30 days?: No Have you Ever Experienced Previous Episodes of Alcohol Withdrawal?: Yes Have you ever Experienced Withdrawal Seizures?: No Have you ever Experienced Delirium Tremens(DT)s?: Yes Have you ever undergone Alcohol Rehabilitation Treatment (i.e, inpt ot outpatient treatment programs)?: No Have you ever Experienced Blackouts?: Yes Have you ever Combined Alcohol with other Downers within the last 90 days?: No Have you ever Combined Alcohol with any other Substance of Abuse during the last 90 days?: No Result: 3
[2025-03-13 21:54] LABS: HCG Qual (Serum) Negative
[2025-03-13 22:02] LABS: Anion Gap 16.5 mmol/L (3-11); BUN 9 mg/dL (7-18); CO2 20.5 mmol/L (21.0-32.0); CREATININE 0.9 mg/dL (0.55-1.02); Calcium 8.6 mg/dL (8.5-10.1); Chloride 107 mmol/L (98-107); ETHANOL BLOOD 201.6 mg/dL (<10); Estimated GFR 91.55 (mL/min/1.73m2); Glucose 91 mg/dL (74-106); Potassium 3.9 mmol/L (3.5-5.1); Sodium 144 mmol/L (136-145)
--- NOTE | 2025-03-13 22:03 | DI.VRAD_ITS ---
PROCEDURE INFORMATION: Exam: CT Head Without Contrast Exam date and time: 03/13/2025 9:29 PM Age: 24 years old Clinical indication: Injury or trauma; Other: Hit head; Other: Head trauma TECHNIQUE: Imaging protocol: Computed tomography of the head without contrast. COMPARISON: No relevant prior studies available. FINDINGS: Brain: Minimal atrophy. No intracranial hemorrhage. No mass. No edema. Cerebral ventricles: No hydrocephalus. Paranasal sinuses: No acute sinusitis. Mastoid air cells: No significant effusion. Orbital cavities: Unremarkable as visualized. Bones: No acute fracture. Soft tissues: Right scalp swelling. IMPRESSION: No intracranial hemorrhage. Dictated and Authenticated by: Taco Bridges MD. Orderin Manisha Chandler MD
--- NOTE | 2025-03-13 22:16 | NUR.NOTE ---
pt ambulated with stand by guard twice to the bathroom with intention of providing Urine Sample and states that she cannot pee and needs help going pee pt states she needs a catheter and a bladder scan. This clinical writer stated that she would have a conversation with the provider but the patient in the past has had the capacity to void without assistance.
--- NOTE | 2025-03-13 22:32 | NUR.NOTE ---
bladder scanned patient for 460 mls. pt explains incredible anxiety about voiding in public places and refuses provide a sample without a catheterization. education provided on the risks of straight catheterization including the risk of infection. this scientific technical writer walked patient to bathroom and attempted to provide for a private space. Pt has requested to call mom.
--- NOTE | 2025-03-13 22:45 | NUR.NOTE ---
Patient crying and inconsolable about the inability to void. pt frequently walking to bathroom and through the hallway making a scene yelling at the top her lungs at staff.
--- NOTE | 2025-03-13 23:36 | NUR.NOTE ---
discussed POC with Provider Dr. Briceño. Given permission to cancel UDS. Pt declines to be on monitor Provider aware. goal of care is to reassess sobriety by 0200 or ascertain a sober ride for DC.
[2025-03-14 05:18] VITALS: BP 159/103; PULSE 89; RESP 18; TEMP 36.5; O2SAT 97
--- NOTE | 2025-03-14 05:20 | W.EDPROG ---
Date of service: 03/14/25 Time of Service: 05:21 Medical Decision Making Patient was signed out to me overnight pending sobriety. She had presented to the ED after she had been taken into custody and began banging her head against the wall at the alf. Her alcohol level was 200. Her head CT was negative. She had received droperidol in the field for agitated behavior. She slept more entire shift. This morning vital signs are normal. She is now reporting being overwhelmed with anxiety and feeling suicidal. She is medically cleared and we will have mental health evaluate her. 06:45 - Patient evaluated by [facility]. Patient will remain in the ED voluntarily for dual diagnosis admit. She will be placed on CIWA scoring and p.o. Librium to avoid withdrawal. Daily medications ordered. Per conversation with [facility] consider EE if she attempts to leave. Discharge Plan Discharge Details Chief Complaint: HeadInjury Clinical Impression: Alcohol intoxication, Alcohol abuse, Contusion of scalp, Suicide ideation Primary Care Provider: Salud Braga ED Provider: Franco Briceño [place] Meds and New Rx's Prescriptions: No Action hydroxyzine HCl 50 mg tablet 50 mg PO QHS Qty: 14 0RF propranolol 10 mg tablet 10 mg PO BID Patient Comments: TAKE ONE TABLET BY MOUTH TWICE A DAY mometasone 50 mcg/actuation [place],Non-Aerosol 1 spray INTRANASAL DAILY sertraline 50 mg tablet 50 mg PO DAILY Patient Comments: TAKE ONE TABLET BY MOUTH EVERY DAY
--- NOTE | 2025-03-14 06:38 | PDOC.MHCN_ITS ---
Date of service: 03/14/25 Time of Service: 06:38 PHQ-9 Over the last 2 weeks, how often have you been bothered by any of the following problems? 1. Little interest or pleasure in doing things: more than half the days 2. Feeling down, depressed, or hopeless: nearly every day 3. Trouble falling or staying asleep, or sleeping too much: nearly every day 4. Feeling tired or having little energy: not at all 5. Poor appetite or overeating: not at all 6. Feeling bad about yourself - or that you are a failure or have let yourself and your family down: nearly every day 7. Trouble concentrating on things, such as reading the newspaper or watching television: more than half the days 8. Moving or speaking so slowly that other people could have noticed? - Or the opposite - being so fidgety or restless that you have been moving around a lot more than usual: nearly every day 9. Thoughts that you would be better off or of hurting yourself in some way: several days Total score: 17 If you checked off any problems, how difficult have these problems made it for you to do your work, take care of things at home, or get along with other people?: extremely difficult PHQ-9 Results: Positive Source: Developed by Drs. Franco Mcpherson, Archana Gao, Reese Pierson and colleagues, with an educational rafita from [employer] Suicide Severity Rate CSSRS Have you wished you were or wished you could go to sleep and not wake up?: Yes Have you actually had any thoughts of killing yourself?: Yes CSSRS2 Have you been thinking about how you might do this?: Yes Have you had these thoughts and had some intention of acting on them?: Yes Have you started to work out or worked out the details of how to kill yourself? Do you intend to carry out this plan?: Yes CSSRS3 Have you ever done anything, started to do anything or prepared to do anything to end your life?: Yes CSSRS4 Was this within the past three months?: Yes Screening Score Total Score: 8 Screening: Positive Mental Health Emergency Note Release NK release signed:: Yes Reason for Visit The client is known to [facility] through the ES team. She has had numerous assessments in the last month. She has been hospitalized at [facility] and stated the last time was in August 2024. She was last screened on 03.11.25 by ES. The client was brought in last night for intoxication and a head laceration. When she was being discharged she informed ED staff that she was suicidal and wanted treatment. In the last 2 weeks has the pt presented for ES prior to today?: Yes, presented at [facility] ED Client Information Client is: Adult Outpatient Well Housed: No,status: Homeless Non Suicidal Self Injury Current: Yes, Pull hair and it myself History: yes, same Safety Risk/Harm to Self or Others Current Ideation to Harm Self or Others: Yes to self. (Drink, take pills and lay on the train tracks. ) Intent: yes, has intent. Plan: yes,has a plan. History of suicide attempt: yes,history of suicide attempt reported. Details of previous suicide attempt: Passive aggressive by drinking to excess and I put myself in dangerous situations. Risk: Does risk to harm exist?: yes. Access to means: No. Risk: High Risk Duty to warn indicated: No Asssessment/Mental Status Appearance: Disheveled Attitude: Cooperative Behavior: Other (Nauseous and tired.) Speech: Soft Affect: Cogruent with mood Mood: Stressed, Depressed and Anxious Thought process: Goal directed Hallucinations: No Delusions: No Attention: Unremarkable Perception: Not impaired Orientation: Fully orientated Memory: Intact Insight: Poor Judgement: Poor Neurovegetative Symptoms Sleep: Decrease (Frequent waking from nightmares) Appetitie: Decrease Interests: Decrease Energy: Decrease Libido: Not applicable Substance Use: ETOH dependence Do you use nicotine?: No Have you used substances in the last 7 days?: yes, ETOH x 6 -9 glasses of wine daily Additional Issues: Assaultive/Threatening Behavior: No Medical Concerns: No Client engaged in active self harm w/weapon: No Threatening to run away: No Child reported abuse/neglect: No Voluntarily presenting for services: Yes Domestic violence is a concern: No Extreme Psychosis or extreme behavior is present: No Impression The client is a 24-year-old, single, female who has been staying at the [facility] due to homelessness. 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 The client uses She/Her pronouns. All underrepresented categories were honored during this assessment. The client is observed, lying in bed with her hair pulled back but messy as she was sleeping and has not showered or combed it. She makes fair eye contact and is soft spoken. She rated her SI an 8/10 and identified a plan. This clinician inquired about her being in the hospital in the past and staying for a day or two and then leaving and what would be different this time. She noted that it is taking too long for Aydin Flores to get her in and she needs help. The client reported she is diagnosed with Anxiety and is prescribed hydroxyzine for her anxiety and propranolol for her nightmares by Salud Braga with [facility]. She is unable to note any strengths or future oriented things she is looking forward to. The cleint is seeking voluntary placement at this time. Plan/Disposition Recommended Disposition: Hospitalization (By way of faxing clinical note. Will call later this am. ) facilities contacted. Plan: The client will remain at [facility] for voluntary placement. She will be assessed daily until placed. Person reported agreement to plan: Yes Reports/communication Outcome discussed with: ED/Personnel
[2025-03-14] MEDS: chlordiazePOXIDE 25 MG CAP PO ×2 (07:22→14:19)
[2025-03-14 07:30] VITALS: BP 118/76; PULSE 63; RESP 16; TEMP 36.3; O2SAT 100
--- NOTE | 2025-03-14 07:30 | ED.PROG_ITS ---
Date of service: 03/14/25 Time of Service: 07:30 Medical Decision Making I received signout on this 24-year-old female in the emergency department in the setting of reporting anxiety and suicidal ideation. She was evaluated by [facility]. She will be held voluntarily for the time being for dual diagnosis inpatient admission. Librium ordered on a 3 times daily basis. Per NK consider EE if attempts to leave given her frequent visits to the ED, continued drinking, continued problems with the law. 12:15 PM I spoke to Krista Bueno from the [facility] who graciously agreed to accept the patient. Patient's CIWA score was 4. She is neither tachycardic nor hypertensive. I ordered her some nicotine gum. 4:25 PM I signed transfer paperwork to have this patient transferred to the [facility]. Quality:SDOH Health Related Social Needs: No Data to Display Discharge Plan Disposition Patient Disposition: Psychiatric Hospital/Unit Specific Psychiatric Facility: [facility] Discharge Details Clinical Impression: Alcohol intoxication, Alcohol abuse, Contusion of scalp, Suicide ideation Primary Care Provider: Salud Braga ED Provider: Onel Syed Home Meds and New Rx's Prescriptions: No Action hydroxyzine HCl 50 mg tablet 50 mg PO QHS Qty: 14 0RF propranolol 10 mg tablet 10 mg PO BID Patient Comments: TAKE ONE TABLET BY MOUTH TWICE A DAY mometasone 50 mcg/actuation [place],Non-Aerosol 1 spray INTRANASAL DAILY sertraline 50 mg tablet 50 mg PO DAILY Patient Comments: TAKE ONE TABLET BY MOUTH EVERY DAY Discharge Instructions Stand Alone Forms: Work Release Discharge Data Discharge Date/Time-TO BE ENTERED AT DEPARTURE: 03/14/25 15:15
[2025-03-14] MEDS: Propranolol 10 MG TAB PO (08:15)
[2025-03-14] MEDS: Sertraline 50 MG TAB PO (08:15)
--- NOTE | 2025-03-14 08:23 | CMSP_ITS ---
Date of service: 03/14/25 Time of Service: 08:23 Care Management Safety Plan Status Status: Voluntary Reason for Wait Reason for Wait: Inpatient Admission (Awaiting inpatient psychiatric treatment at an accepting dual diagnosis facility) Safety Plan Safety Plan: VOLUNTARY FOR INPATIENT PSYCHIATRIC STABILIZATION.? Patient is appropriate in all interactions since arriving at [facility]; Pt has demonstrated appropriate coping and communication skills, has articulated his or her needs and concerns and is fully engaged during staff interactions. Safety plan has been established with patient, and care team, to adhere to patient goals, identify restrictions based on behavioral status, address nutrition, and determine allowed personal belongings, tools for hygiene and personal care. Determine level of activity including ambulation, level of supervision, visitors, and determine privileges based on behaviors and level of engagement by pt. VOLUNTARY SAFETY PLAN: 1. Will remain on suicide precautions, in paper clothes 2. Will remain in Zone B under direct supervision of one-on-one staff at all times provided by [employer]; PAULA, ELECTRICAL MACHINIST rodent control worker. 3. May have paper cups, plates, finger foods as well as a cardboard spoon with which to eat meals. 4. Follow [facility] Management of the Admitted Behavioral Health Patient policy. 5. Shower available in Zone B without restriction. 6. Personal belongings-soft items permitted at RN discretion. 7. Visitors- boyfriend may visit; mother may not visit at this time, at RN discretion. 8. Activities: soft cart items, hospital tablets (Netflix/Jaylen+/music) approved per RN discretion. 9.? Bathroom available in Zone B without restriction. 10. Phone: incoming/outgoing calls limited to [facility] cordless phone at RN discretion. Due to VOLUNTARY status, if patient wishes to leave [facility], staff will contact [facility] Crisis Screener ([phone]) and Human Resources Admin ([phone]) as soon as possible. In the event of elopement, notify [place] [employer] ([phone]). Patient is currently voluntarily at [facility] and seeking inpatient admission when a bed becomes available. [facility] Frontline Tactical Air Defense Controller will continue seeking pl acement. Please contact the Human Resources Admin ([phone]) and [facility] Tactical Air Defense Controller ([phone]) for any needed changes in the Safety Plan. Safety plan has been provided to interdepartmental care team.
--- NOTE | 2025-03-14 08:23 | PDOC.CMSAFE ---
Date of service: 03/14/25 Time of Service: 08:23 Care Management Safety Plan Status Status: Voluntary Reason for Wait Reason for Wait: Inpatient Admission (Awaiting inpatient psychiatric treatment at an accepting dual diagnosis facility) Safety Plan Safety Plan: VOLUNTARY FOR INPATIENT PSYCHIATRIC STABILIZATION.? Patient is appropriate in all interactions since arriving at [facility]; Pt has demonstrated appropriate coping and communication skills, has articulated his or her needs and concerns and is fully engaged during staff interactions. Safety plan has been established with patient, and care team, to adhere to patient goals, identify restrictions based on behavioral status, address nutrition, and determine allowed personal belongings, tools for hygiene and personal care. Determine level of activity including ambulation, level of supervision, visitors, and determine privileges based on behaviors and level of engagement by pt. VOLUNTARY SAFETY PLAN: 1. Will remain on suicide precautions, in paper clothes 2. Will remain in Zone B under direct supervision of one-on-one staff at all times provided by [employer]; PAULA, VISUAL DISPLAY MANAGER special trackwork blacksmith. 3. May have paper cups, plates, finger foods as well as a cardboard spoon with which to eat meals. 4. Follow [facility] Management of the Admitted Behavioral Health Patient policy. 5. Shower available in Zone B without restriction. 6. Personal belongings-soft items permitted at RN discretion. 7. Visitors- boyfriend may visit; mother may not visit at this time, at RN discretion. 8. Activities: soft cart items, hospital tablets (Netflix/Jaylen+/music) approved per RN discretion. 9.? Bathroom available in Zone B without restriction. 10. Phone: incoming/outgoing calls limited to [facility] cordless phone at RN discretion. Due to VOLUNTARY status, if patient wishes to leave [facility], staff will contact [facility] Crisis Screener ([phone]) and Transit Vehicle Inspector ([phone]) as soon as possible. In the event of elopement, notify [place] Police ([phone]). Patient is currently voluntarily at [facility] and seeking inpatient admission when a bed becomes available. [facility] Frontline Sewing Machine Bobbin Winder will continue seeking placement. Please contact the Transit Vehicle Inspector ([phone]) and [facility] Sewing Machine Bobbin Winder ([phone]) for any needed changes in the Safety Plan. Safety plan has been provided to interdepartmental care team.
[2025-03-14] MEDS: Nicotine 2 MG GUM CH ×3 (09:23→12:21)
[2025-03-14 10:18] LABS: *AMPHETAMINES SCREEN URINE Negative (Negative); *BARBITURATES SCREEN URINE Negative (Negative); *BENZODIAZEPINES SCREEN URINE Positive (Negative); Cannabinoids THC Positive (Negative); Cocaine Screen,Urine Negative (Negative); METHADONE URINE SCREEN Negative (Negative); OPIATES URINE SCREEN Negative (Negative)
[2025-03-14 10:23] LABS: Tricyclic Antidepressants Negative (Negative)
--- NOTE | 2025-03-18 12:05 | NUR.NOTE ---
Nursing Note: Note re Date of Service 03/14/2025 14:00 to ~ 14:45) This telegraphic typewriter mechanic calming pt re her anxieties around urinating. Pt states she has concerns about her 2 hour transport to [place]. Pt bladder scanned at 13:30 with 134 ml's noted. This reading presented to patient who states, I just worry that I'm going to fill up before I go. This telegraphic typewriter mechanic agreed to pt's request to bladder scan again just prior to leaving. Upon arrival of crew at ~14:45, this telegraphic typewriter mechanic re-scanned bladder with results = 137. This telegraphic typewriter mechanic showed results to pt who appeared to be relieved at the information. Pt care transferred to EMS crew for transport.
== END 2025-03-14 15:15 ==
PROVIDERS: Emergency Medicine; Emergency Provider Emergency Medicine; PCP Nurse Practitioner Family
DX: S00.03XA Contusion of scalp, initial encounter (principal); R41.82 Altered mental status, unspecified; F10.120 Alcohol abuse with intoxication, uncomplicated; F17.290 Nicotine dependence, other tobacco product, uncomplicated; Y90.5 Blood alcohol level of 100-119 mg/100 ml; W22.01XA Walked into wall, initial encounter; Y93.89 Activity, other specified; Y92.29 Other specified public building as the place of occurrence of the external cause
CPT/HCPCS: 123; 36415; 80048; 80307; 81025; 96127; 99284; 00123; 70450; 80320; 84703; 85025